=== PATIENT | female | born 1955 | race Caucasian/White ===

== ENCOUNTER 2019-03-02 07:20 | Observation (INO) ==
[2019-03-02] MEDS ORDERED: 0.9 % Sodium Chloride 500 ML IVC ONE (08:02)
[2019-03-02] MEDS ORDERED: GI Cocktail 40 ML EACH PO ONE (08:02)
--- NOTE | 2019-03-02 08:06 | Emergency Department Note ---
Disposition Clinical Impression: Elevated troponin Chest pain Qualifiers: Chest pain type: unspecified Qualified Code(s): R07.9 - Chest pain, unspecified Disposition: Admitted As Inpatient Condition: Fair Time of Disposition: 09:16 Chest Pain HPI - General Chief Complaint: ED Chest Pain Stated Complaint: CP/TANMAY Time Seen by Provider: 03/02/19 07:39 Source: patient Limitations: no limitations Vital Signs Reviewed: Yes Nursing Notes Reviewed: Yes - History of Present Illness HPI Narrative: Patient is a 63-year-old female past medical history of hypertension, hyperlipidemia, GERD, diabetes presenting for a one-day history of left sided chest pain with radiation into the upper left extremity associated with numbness and paresthesias. Patient states she woke approximately 4:30 this morning with 9 out of 10 stabbing pain in her left chest. Patient states that she has had several recent life stressors which she feels are exacerbating her symptoms. Patient also states she felt initially as though this pain was related to her gastroesophageal reflux disease and that she took her GERD medications believing that this would dannie the symptoms. Patient states her symptoms were not resolved with the administration of her medications and that she took her relented this morning approximately 5:30 believing that this would be cardiac prophylactic in nature. Patient states in addition to the chest pain that she also is experiencing shortness of breath, patient has no other concerns or complaints at this time. Pt complaint: chest pain Onset (ago): hour(s) Duration: constant Onset: awoke with symptoms Severity scale (1-10): 9 Quality: sharp Pain Radiation: LUE Improves with: nothing Worsens with: nothing Context: other (Significant recently stressors) Associated symptoms: Reports: dyspnea Treatments prior to arrival chest pain: other (Brillenta) - Related Data Home Medications Medication Instructions Recorded Confirmed CloNIDine HCl [Kapvay] 0.1 mg PO BID 09/22/16 09/30/16 Hydralazine HCl 100 mg PO BID 09/22/16 09/30/16 Insulin Glargine [Lantus] 20 unit SQ HS 09/22/16 09/30/16 LORazepam [Ativan] 0.5 mg PO QID PRN 09/22/16 09/30/16 Levothyroxine [Synthroid] 50 mcg PO DAILY 09/22/16 09/30/16 Metoclopramide [Reglan] 10 mg PO QID PRN 09/22/16 09/30/16 Omeprazole [PriLOSEC] 20 mg PO DAILY 09/22/16 09/30/16 Pediatric Multivit Comb No.136 1 tab PO DAILY 09/22/16 09/30/16 [Children Multivitamin] SUMAtriptan succinate [Imitrex] 25 mg PO Q2H PRN 09/22/16 09/30/16 amLODIPine [Norvasc] 5 mg PO DAILY 09/22/16 09/30/16 glipiZIDE [Glucotrol] 10 mg PO DAILY 09/22/16 09/30/16 Previous Rx's Medication Instructions Recorded Simvastatin [Zocor] 20 mg PO DAILY tablet 09/23/16 SitaGLIPtin [Januvia] 25 mg PO DAILY #30 tablet 09/23/16 Sodium Bicarbonate 650 mg PO TID #90 tablet 09/23/16 Allergies Allergy/AdvReac Type Severity Reaction Status Date / Time iron Allergy Anaphylaxis Verified 03/02/19 07:26 Penicillins Allergy Anaphylaxis Verified 03/02/19 07:26 metronidazole [From Flagyl] AdvReac Nausea Verified 03/02/19 07:26 Pain Pill AdvReac Nausea Uncoded 03/02/19 07:26 Review of Systems: See history of present illness for greater detail Constitutional: Denies: fever, chills Cardiovascular: Admits chest pain Respiratory: Admits dyspnea, denies: cough, hemoptysis Gastrointestinal: Denies: abdominal pain, nausea, vomiting, diarrhea, constipation, hematemesis, melena, hematochezia Genitourinary: Denies: hematuria Musculoskeletal: Denies: back pain, neck pain Integumentary: Denies: rash Neurological: Denies: headache, weakness, lightheadedness/dizziness, numbness, paresthesias, difficulty with ambulation. Endocrine: Denies: fatigue Psychiatric: Admits to anxiety All systems ED: reviewed and negative except as stated. 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 No acute distress, [id number], engaged to conversation, speech is fluid, answers questions appropriately Neuro: GCS 15, no overt focal neurological deficits Head: Atraumatic, normocephalic Eyes: Pupils equal, round and reactive to light, no scleral icterus, no conjunctival injection Neck: Trachea midline without deviation. Anterior neck is supple without swelling. *Chest: Symmetric chest wall rise, pain is reproducible upon palpation of the sternum and epigastric region. *Heart: Cardiac rhythm and rate are regular with S1 and S2 , no S3 or S4 appreciated, no murmurs, gallops, rubs, or clicks. *Lungs: Lungs are clear to auscultation bilaterally, without accessory muscle use or prolonged expiratory phase. No wheezes, rhonchi or stridor appreciated. Abdomen: Abdomen is flat, soft to palpation, normal bowel sounds. No abdominal bruit auscultated. Non-distended, non-rigid, no organomegaly, no ascites appreciated. No pulsatile mass, no tenderness or guarding to palpation in all four quadrants, no rebound Extremities: Normal capillary refill without evidence of pedal edema, joint swelling or erythema. Pulses/motor/sensory intact in all 4 extremities. Psychiatric exam: Patient displays a normal affect and mood for the environment. No overt signs of hallucination. Integumentary: warm, dry, intact, normal color. No rash, cyanosis, diaphoresis, erythema, or pallor - General Limitations: no limitations General appearance: alert, in no apparent distress Course Course Narrative: Concern for ACS versus GI GI cocktail Aspirin 324 mg Nitroglycerin CBC, BMP, EKG/old EKG, troponin, chest x-ray Vital Signs Temperature 97.5 F L 03/02/19 07:26 Pulse Rate 82 03/02/19 07:26 Respiratory Rate 16 03/02/19 07:26 Blood Pressure 220/101 03/02/19 07:26 O2 Sat by Pulse Oximetry 100 03/02/19 07:26 Temperature 97.5 F L 03/02/19 10:07 Pulse Rate 59 03/02/19 10:07 Respiratory Rate 15 03/02/19 10:07 Blood Pressure 158/73 03/02/19 10:07 O2 Sat by Pulse Oximetry 99 03/02/19 10:07 Oxygen Delivery Oxygen Delivery Room Air Chest Pain - MDM Narrative Medical decision making narrative: Heart score is 4 Troponin elevated 0.05 Patient continues to have pain which she states is 5 out of 10 after administration of GI cocktail We will give nitroglycerin at this time and repeat EKG No changes noted on EKG patient states that nitroglycerin completely relieved her symptoms. Repeat troponin placed for 10:30 AM Patient be admitted to hospitalist medicine service for further evaluation and management of chest pain Patient understands and verbalizes agreement with this plan. Dr. Mcfarlane accepts admission. - Lab Data Lab results reviewed: Yes I reviewed the patient's lab results. Result diagrams: 03/02/19 07:27 03/02/19 07:27 Lab Results 03/02/19 03/02/19 Range/Units 07:27 07:27 WBC 7.2 (4.3-11.1) K/mcL RBC 4.20 (3.82-4.97) M/mcL Hgb 9.9 L (11.5-15.4) g/dL Hct 34.8 L (35.3-44.9) % MCV 82.9 L (83.0-100.0) fL MCH 23.6 L (28.0-33.3) pg MCHC 28.4 L (31.6-35.5) g/dL RDW 16.9 H (11.5-14.5) % Plt Count 315 (140-400) K/mcL MPV 9.6 (9.4-12.4) fL Immature Gran % 0.6 (0-4) % Seg Neutrophils % 66.1 % Lymphocytes % 22.1 % Monocytes % 7.4 % Eosinophils % 3.2 % Basophils % 0.6 % Neutrophils # 4.8 (1.6-8.9) K/mcL Lymphocytes # 1.6 (0.6-4.6) K/mcL Monocytes # 0.5 (0.0-1.3) K/mcL Eosinophils # 0.2 (0.0-0.6) K/mcL Basophils # 0.0 (0.0-0.2) K/mcL Platelet Estimate Normal (Normal) Hypochromasia Present A (Not Present) Sodium 134 L (136-145) mEq/L Potassium 4.1 (3.5-5.1) mEq/L Chloride 102 (98-107) mEq/L Carbon Dioxide 18 L (23-29) mEq/L BUN 41 H (8-23) mg/dL Creatinine 2.01 H (0.60-1.20) mg/dL Est GFR ( Amer) 30 L (> 60) Est GFR (Non-Af Amer) 25 L (> 60) BUN/Creatinine Ratio 20 (6-26) Glucose 288 H (70-105) mg/dL Calculated Osmolality 299 (280-300) Calcium 9.2 (8.6-10.3) mg/dL Troponin I 0.05 H* (< 0.04) ng/mL - EKG Data EKG attestation: Yes I reviewed and interpreted this EKG. EKG results narrative: 1. Patient EKG shows a sinus rhythm at a rate of 61 bpm, IL interval of 178 ms, QRS duration of 90 ms, QT/QTc interval 438/442 ms respectively. There are no significant ST segment elevations, depressions, pathologic Q waves, or any signs of acute ischemic change. EKG performed today is generally consistent with prior EKG performed on 10/03/2016. 2. Patient continues to have chest pain after management in ED with GI cocktail and aspirin. Repeat EKG shows a sinus rhythm with a heart of 71 bpm, IL interval of 186 ms, QR sabianist of 96 ms, QT/QTc interval of 428/466 ms respectively. There are still no ST segment elevations, depressions, pathologic Q waves, or any other signs of acute ischemic change. EKG remains consistent with prior evaluations. 3. Concern for triplets of PVCs on patient telemetry, concern for sinus pause. Repeat EKG shows a sinus rhythm with a heart of 58 bpm, there are no acute changes to IL, QRS, or QT intervals. No signs of acute ischemic change. There is a noted PAC on the rhythm strip with a rebound upon his of less than 1 second. No true sinus positive sinus rest noted. EKG remains consistent with priors. Heart Score - Score History: Slightly Suspicious EKG: Normal Age: 45-65 Risk Factors: Equal/Greater than 3 risk factor or history of atherosclerotic disease Troponin: 1-3x normal limit HEART Score Total: 4
[2019-03-02 08:07] LABS: Basophils % 0.6 %; Eosinophils # 0.2 K/mcL (0.0-0.6); Eosinophils % 3.2 %; Hematocrit 34.8 % (35.3-44.9); Hemoglobin 9.9 g/dL (11.5-15.4); Immature Granulocytes % 0.6 % (0-4); Lymphocytes # 1.6 K/mcL (0.6-4.6); Lymphocytes % 22.1 %; Mean Corpuscular HGB Conc 28.4 g/dL (31.6-35.5); Mean Corpuscular Hemoglobin 23.6 pg (28.0-33.3); Mean Corpuscular Volume 82.9 fL (83.0-100.0); Mean Platelet Volume 9.6 fL (9.4-12.4); Monocytes # 0.5 K/mcL (0.0-1.3); Monocytes % 7.4 %; Platelet Count 315 K/mcL (140-400); Red Cell Distribution Width 16.9 % (11.5-14.5); Segmented Neutrophils % 66.1 %
[2019-03-02 08:08] LABS: Neutrophils # 4.8 K/mcL (1.6-8.9)
[2019-03-02 08:09] LABS: Calcium 9.2 mg/dL (8.6-10.3); Potassium 4.1 mEq/L (3.5-5.1)
[2019-03-02] MEDS ORDERED: Aspirin 81 MG TAB.CHEW PO ONE (08:10)
[2019-03-02 08:22] LABS: Hypochromasia Present (Not Present); Platelet Estimate Normal (Normal)
[2019-03-02 08:27] LABS: Troponin I 0.05 ng/mL (< 0.04)
[2019-03-02] MEDS ORDERED: Aspirin 81 MG TAB.CHEW PO SCH (09:00)
[2019-03-02] MEDS ORDERED: Nitroglycerin 0.4 MG TAB.SUBL SL SCH (09:15)
--- NOTE | 2019-03-02 09:28 | Emergency Department Note ---
Disposition Clinical Impression: Elevated troponin Chest pain Qualifiers: Chest pain type: unspecified Qualified Code(s): R07.9 - Chest pain, unspecified Disposition: Admitted As Inpatient Condition: Fair Time of Disposition: 09:00 General Adult HPI - General Chief complaint: ED Chest Pain Stated complaint: CP/TANMAY Time Seen by Provider: 03/02/19 07:39 Source: patient Limitations: no limitations - History of Present Illness Pain Scale: 9 - Related Data Home Medications Medication Instructions Recorded Confirmed CloNIDine HCl [Kapvay] 0.1 mg PO BID 09/22/16 09/30/16 Hydralazine HCl 100 mg PO BID 09/22/16 09/30/16 Insulin Glargine [Lantus] 20 unit SQ HS 09/22/16 09/30/16 LORazepam [Ativan] 0.5 mg PO QID PRN 09/22/16 09/30/16 Levothyroxine [Synthroid] 50 mcg PO DAILY 09/22/16 09/30/16 Metoclopramide [Reglan] 10 mg PO QID PRN 09/22/16 09/30/16 Omeprazole [PriLOSEC] 20 mg PO DAILY 09/22/16 09/30/16 Pediatric Multivit Comb No.136 1 tab PO DAILY 09/22/16 09/30/16 [Children Multivitamin] SUMAtriptan succinate [Imitrex] 25 mg PO Q2H PRN 09/22/16 09/30/16 amLODIPine [Norvasc] 5 mg PO DAILY 09/22/16 09/30/16 glipiZIDE [Glucotrol] 10 mg PO DAILY 09/22/16 09/30/16 Previous Rx's Medication Instructions Recorded Simvastatin [Zocor] 20 mg PO DAILY tablet 09/23/16 SitaGLIPtin [Januvia] 25 mg PO DAILY #30 tablet 09/23/16 Sodium Bicarbonate 650 mg PO TID #90 tablet 09/23/16 Allergies Allergy/AdvReac Type Severity Reaction Status Date / Time iron Allergy Anaphylaxis Verified 03/02/19 07:26 Penicillins Allergy Anaphylaxis Verified 03/02/19 07:26 metronidazole [From Flagyl] AdvReac Nausea Verified 03/02/19 07:26 Pain Pill AdvReac Nausea Uncoded 03/02/19 07:26 Past Medical History - Past Medical History Medical history: Reports: diabetes, GERD, hyperlipidemia, hypertension, renal disease, thyroid disease Surgical history: Reports: appendectomy, cholecystectomy, other Psychiatric history: Reports: anxiety 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 - Social History Smoking Status: Former smoker Smokeless Tobacco Status: No Alcohol use: Reports: none Drug use: Reports: none Physical Exam - General Limitations: no limitations General appearance: alert, in no apparent distress Course Vital Signs Temperature 97.5 F L 03/02/19 07:26 Pulse Rate 82 03/02/19 07:26 Respiratory Rate 16 03/02/19 07:26 Blood Pressure 220/101 03/02/19 07:26 O2 Sat by Pulse Oximetry 100 03/02/19 07:26 Temperature 97.5 F L 03/02/19 07:26 Pulse Rate 51 03/02/19 08:54 Respiratory Rate 18 03/02/19 08:54 Blood Pressure 193/91 03/02/19 08:54 O2 Sat by Pulse Oximetry 100 03/02/19 08:54 Oxygen Delivery Oxygen Delivery Room Air Medical Decision Making - Lab Data Result diagrams: 03/02/19 07:27 03/02/19 07:27 Lab Results 03/02/19 03/02/19 Range/Units 07:27 07:27 WBC 7.2 (4.3-11.1) K/mcL RBC 4.20 (3.82-4.97) M/mcL Hgb 9.9 L (11.5-15.4) g/dL Hct 34.8 L (35.3-44.9) % MCV 82.9 L (83.0-100.0) fL MCH 23.6 L (28.0-33.3) pg MCHC 28.4 L (31.6-35.5) g/dL RDW 16.9 H (11.5-14.5) % Plt Count 315 (140-400) K/mcL MPV 9.6 (9.4-12.4) fL Immature Gran % 0.6 (0-4) % Seg Neutrophils % 66.1 % Lymphocytes % 22.1 % Monocytes % 7.4 % Eosinophils % 3.2 % Basophils % 0.6 % Neutrophils # 4.8 (1.6-8.9) K/mcL Lymphocytes # 1.6 (0.6-4.6) K/mcL Monocytes # 0.5 (0.0-1.3) K/mcL Eosinophils # 0.2 (0.0-0.6) K/mcL Basophils # 0.0 (0.0-0.2) K/mcL Platelet Estimate Normal (Normal) Hypochromasia Present A (Not Present) Sodium 134 L (136-145) mEq/L Potassium 4.1 (3.5-5.1) mEq/L Chloride 102 (98-107) mEq/L Carbon Dioxide 18 L (23-29) mEq/L BUN 41 H (8-23) mg/dL Creatinine 2.01 H (0.60-1.20) mg/dL Est GFR ( Amer) 30 L (> 60) Est GFR (Non-Af Amer) 25 L (> 60) BUN/Creatinine Ratio 20 (6-26) Glucose 288 H (70-105) mg/dL Calculated Osmolality 299 (280-300) Calcium 9.2 (8.6-10.3) mg/dL Troponin I 0.05 H* (< 0.04) ng/mL Attestation Statement - Attestation Attestation: I examined this patient and my medical decision-making was reviewed with the Resident Physician. I agree with the documented findings, disposition and treatment plan as described except to the extent set forth below. HEART H0 E0 A2 R2 T1 = 5. Aspirin administered. Pain got significantly better after administration of GI cocktail. Presentation seems most consistent with a GI source, but given her age, risk factors and mildly elevated troponin, cardiac evaluation is obviously warranted. Accepted by the hospitalist for admission. I was present for the resident's EKG interpretation.
[2019-03-02] MEDS ORDERED: Nitroglycerin 0.4 MG TAB.SUBL SL ONE (09:30)
[2019-03-02] MEDS ORDERED: Ondansetron 4 MG/2 ML VIAL IVP PRN (10:03)
[2019-03-02] MEDS ORDERED: Naloxone 0.4 MG/ML INJ IVP PRN (10:03)
[2019-03-02] MEDS ORDERED: Acetaminophen 325 MG TABLET PO PRN (10:03)
--- NOTE | 2019-03-02 10:09 | Internal Med History&Physical ---
<Rick Latham - Last Filed: 03/02/19 11:20> Date of Encounter: 03/02/19 Time of Encounter: 10:02 Internal Medicine - H&P: HPI Chief complaint: Chest pain Admitted From: Emergency Dept Plans for Post Hospital Care: Home History of present illness: Ms. Echavarria is a 63 year old female with a past medical history of hypertension, hyperlipidemia, diabetes mellitus type 2, hypothyroidism, GERD, and obesity who presented to the ED complaining of left-sided chest pain radiating to her left upper extremity that awoke her from sleep at 4:30 this morning. Pain severity is 9 out of 10, sharp, stabbing, and nothing makes it better/worse. Pain improved with nitroglycerin the ED. Patient reports associated increased stress at home. Patient reports her current symptoms are different than her typical GERD related symptoms. In the ED, EKG revealed normal sinus rhythm, normal axis, no ST segment elevations or depressions. Initial troponin was 0.05, repeat troponin 0.25. Patient was started on heparin drip, made NPO, and cardiology has been consulted. Past Med Surg Social Fam HX - Past Medical History Medical history: diabetes, GERD, hyperlipidemia, hypertension, renal disease, thyroid disease Psychiatric history: anxiety - Past Surgical History Surgical History: appendectomy, cholecystectomy, other Additional surgical history: tonsillectomy - Social History Smoking Status: Former smoker Smokeless Tobacco Status: No Alcohol use: none Drug use: none - Family History Father Living Status: Hx Family Cancer: Yes Mother Living Status: Hx Family Endocrine Disorder: Yes (diabetes) Internal Medicine - H&P: Meds Levothyroxine [Synthroid] 50 mcg PO QAM 09/22/16 [History] Omeprazole [PriLOSEC] 20 mg PO DAILY 09/22/16 [History] Pediatric Multivit Comb No.136 [Children Multivitamin] 1 tab PO DAILY 09/22/16 [History] Calcium Carbonate [Calcium] 500 mg PO DAILY 03/02/19 [History] Cholecalciferol (D-3) [Vitamin D] 1,000 unit PO DAILY 03/02/19 [History] Cider Vinegar [Apple Cider Vinegar] 600 mg PO DAILY 03/02/19 [History] Furosemide [Lasix] 40 mg PO DAILY 03/02/19 [History] Glimepiride [Amaryl] 4 mg PO BID 03/02/19 [History] Insulin Glargine,Hum.rec.anlog [Lantus Solostar] 44 unit SQ HS 03/02/19 [History] Insulin Regular, Human [Novolin R] 20 unit SQ TIDAC 03/02/19 [History] Simvastatin [Zocor] 20 mg PO DAILY 03/02/19 [History] hydroCHLOROthiazide [Hydrochlorothiazide] 25 mg PO DAILY 03/02/19 [History] 3 Allergy/AdvReac Type Severity Reaction Status Date / Time iron Allergy Anaphylaxis Verified 03/02/19 19:42 Penicillins Allergy Anaphylaxis Verified 03/02/19 19:42 metronidazole [From Flagyl] AdvReac Nausea Verified 03/02/19 19:42 Pain Pill AdvReac Nausea Uncoded 03/02/19 07:26 All Systems PM: A 10-system review of systems was performed and is negative for pertinent findings except as documented above in the HPI. - Constitutional Constitutional: no chills, no fatigue, no fever(s), no weight gain, no weight loss - EENT Eyes: no blurry vision, no diplopia Nose, mouth and throat: no sinus pain, no sore throat - Cardiovascular Cardiovascular ROS IM: chest pain, dyspnea, no edema, no palpitations - Respiratory Respiratory: dyspnea, no wheezing - Gastrointestinal Gastrointestinal: heartburn, no abdominal pain, no diarrhea, no nausea, no vomiting - Genitourinary Genitourinary: no urinary frequency, no urinary urgency - Musculoskeletal Musculoskeletal ROS IM: back pain, myalgias - Integumentary Integumentary IM: no erythema, no rash - Neurological Neurological ROS: no dizziness, no weakness - Psychiatric Psychiatric: anxiety, no depression - Endocrine Endocrine IM: no polydipsia, no polyphagia, no polyuria - Constitutional Vitals: Temp Pulse Resp BP Pulse Ox 97.5 F L 66 18 114/64 97 03/02/19 07:26 03/02/19 09:36 03/02/19 09:36 03/02/19 09:36 03/02/19 09:36 General appearance: Present: cooperative, mild distress, A&O X 3, pleasant, answers questions appropriately Exam: awake - Head Head exam: Present: atraumatic, normocephalic - Eye Eye exam: Present: EOMI, conjuntiva pink, sclera anicteric - ENT ENT exam: Present: mucous membranes dry, normal oropharynx - Neck Neck exam general surgery: Present: supple, trachea midline. Absent: lymphadenopathy - Respiratory Respiratory exam: Present: CTAB. Absent: accessory muscle use, rales, rhonchi, wheezes - Cardiovascular Cardiovascular exam: Present: RRR, +S1, +S2. Absent: diastolic murmur, gallop, rubs, systolic murmur - GI/Abdominal GI/Abdominal exam: Present: normal bowel sounds, soft, no peritoneal signs. Absent: distended, tenderness - Extremities Exam Extremities exam: Present: warm, radial pulses palpable and symmetrical. Absent: calf tenderness, cyanotic, pedal edema - Back Exam Back exam: Present: normal inspection. Absent: paraspinal tenderness, te nderness - Neurological Exam Neurological exam: Present: alert, CN II-XII intact, oriented X3, no focal deficits. Absent: facial droop, speech deficit - Psychiatric Psychiatric exam: Present: normal affect, normal mood - Skin Skin exam: Present: dry, intact, normal color, warm Internal Med - H&P Results - Labs CBC & Chem 7: 03/02/19 07:27 03/02/19 07:27 Labs: Short CBC 03/02/19 Range/Units 07:27 WBC 7.2 (4.3-11.1) K/mcL Hgb 9.9 L (11.5-15.4) g/dL Hct 34.8 L (35.3-44.9) % Plt Count 315 (140-400) K/mcL Neutrophils # 4.8 (1.6-8.9) K/mcL BMP 03/02/19 07:27 Sodium 134 L Potassium 4.1 Chloride 102 Carbon Dioxide 18 L BUN 41 H Creatinine 2.01 H Glucose 288 H Calcium 9.2 Cardiac Enzymes 03/02/19 Range/Units 07:27 Troponin I 0.05 H* (< 0.04) ng/mL - Pulse Oximetry Interpretation Digit-Finger O2 Sat by Pulse Oximetry: 99 (On ambient air) - EKG Data -: EKG Interpreted by Myself EKG shows normal: sinus rhythm, axis, intervals, ST-T waves Rate: normal - Impressions ITS Impressions Chest X-Ray 03/02/19 07:39 IMPRESSION: Normal chest x-ray D/ / Tyson Casper MD / Tyson Casper MD Interpreting Provider: Tyson Casper MD - Assessment and Plan (1) Chest pain Current Visit: Yes Status: Acute Assessment and plan: 63-year-old female with diabetes, HTN, and remote tobacco dependence since complained of sharp stabbing chest pain awoke her from sleep. Chest pain improved with nitroglycerin. EKG revealed normal sinus rhythm, normal axis, no ST segment elevations or depressions. Initial troponin was 0.05, repeat troponin 0.25. Trend serial troponin Patient was started on a heparin drip NPO, cardiology has been consulted. Qualifiers: Chest pain type: unspecified Qualified Code(s): R07.9 - Chest pain, unspecified (2) Elevated troponin Current Visit: Yes Status: Acute Assessment and plan: Initial troponin was 0.05, repeat troponin 0.25. Trend troponins Cardiology has been consulted. (3) Hypertensive urgency Current Visit: Yes Status: Acute Assessment and plan: Patient presented with blood pressure 220/101 --> 114/64 after sublingual nitroglycerin. Continue monitoring. Resume home meds. (4) Hypertension Current Visit: Yes Status: Chronic Assessment and plan: Blood pressure elevated Resume home meds. Qualifiers: Hypertension type: essential hypertension Qualified Code(s): I10 - Essential (primary) hypertension (5) Chronic kidney disease (CKD), stage IV (severe) Current Visit: Yes Status: Chronic Assessment and plan: Renal function at baseline. Continue monitoring. (6) Anemia Current Visit: Yes Status: Chronic Assessment and plan: Hemoglobin 9.9, baseline level around 9 No signs of bleeding. Continue monitoring. Qualifiers: Anemia type: due to chronic kidney disease Chronic kidney disease stage: stage 4 (severe) Qualified Code(s): N18.4 - Chronic kidney disease, stage 4 (severe); D63.1 - Anemia in chronic kidney disease (7) Hypomagnesemia Current Visit: Yes Status: Acute Assessment and plan: Magnesium 1.3 Supplement magnesium Continue monitoring. (8) Type 2 diabetes mellitus Current Visit: No Status: Chronic Assessment and plan: Hemoglobin A1c 10.4 on 02/02/19 NPO, continue Accu-Cheks and low dose SSI every 6 hours Qualifiers: Diabetes mellitus skilled nursing insulin use: with product development director use Diabetes mellitus complication status: with kidney complications Diabetes mellitus complication detail: with chronic kidney disease Chronic kidney disease stage: stage 3 (moderate) Qualified Code(s): E11.22 - Type 2 diabetes mellitus with diabetic chronic kidney disease; N18.3 - Chronic kidney disease, stage 3 ( moderate); Z79.4 - [facility] (current) use of insulin (9) Obesity (BMI 30-39.9) Current Visit: Yes Status: Chronic Assessment and plan: Lifestyle modification. (10) DVT prophylaxis Current Visit: Yes Status: Acute Assessment and plan: Heparin ggt - Time Spent With Patient Total time spent is greater than 50% in coordination of care (as documented) at patient's floor/unit and/or counseling patient: <Radha Kenny Z - Last Filed: 03/04/19 10:50> Date of Encounter: 03/02/19 Internal Medicine - H&P: HPI History of present illness: Ms. Echavarria is a 63 year old female All Systems PM: A 10-system review of systems was performed and is negative for pertinent findings except as documented above in the HPI. - Constitutional Vitals: Temp Pulse Resp BP Pulse Ox 98.5 F 64 16 156/76 99 03/03/19 07:20 03/03/19 07:20 03/03/19 07:20 03/03/19 07:20 03/03/19 07:20 Internal Med - H&P Results - Labs CBC & Chem 7: 03/04/19 02:24 03/04/19 02:24 Labs: Short CBC 03/02/19 03/03/19 Range/Units 13:16 02:16 WBC 6.8 6.0 (4.3-11.1) K/mcL Hgb 9.3 L 8.5 L (11.5-15.4) g/dL Hct 31.1 L 29.0 L (35.3-44.9) % Plt Count 271 251 (140-400) K/mcL BMP 03/03/19 02:16 Sodium 137 Potassium 3.9 Chloride 107 Carbon Dioxide 22 L BUN 40 H Creatinine 2.04 H Glucose 315 H Calcium 9.1 Cardiac Enzymes 03/02/19 03/02/1919 Range/Units 10:16 13:16 20:11 Troponin I 0.25 H* 0.76 H* 3.03 H* (< 0.04) ng/mL Liver Function 03/02/19 Range/Units 10:16 Total Bilirubin 0.3 (0.3-1.0) mg/dL Direct Bilirubin 0.1 (0.0-0.2) mg/dL AST 20 (13-39) Units/L ALT 13 (7-52) Units/L Alkaline Phosphatase 56 (34-104) Units/L Albumin 3.7 (3.5-5.7) g/dL - Impressions ITS Impressions Chest X-Ray 03/02/19 07:39 IMPRESSION: Normal chest x-ray D/ / Tyson Casper MD / Tyson Casper MD Interpreting Provider: Tyson Casper MD - Assessment and Plan (1) Type 2 diabetes mellitus Current Visit: No Status: Chronic Qualifiers: Diabetes mellitus product development director insulin use: with product development director use Diabetes mellitus complication status: with kidney complications Diabetes mellitus complication detail: with chronic kidney disease Chronic kidney disease stage: stage 3 (moderate) Qualified Code(s): E11.22 - Type 2 diabetes mellitus with diabetic chronic kidney disease; N18.3 - Chronic kidney disease, stage 3 (moderate); Z79.4 - [facility] (current) use of insulin (2) Hypertension Current Visit: Yes Status: Chronic Qualifiers: Hypertension type: essential hypertension Qualified Code(s): I10 - Essential (primary) hypertension (3) Anemia Current Visit: Yes Status: Chronic Qualifiers: Anemia type: due to chronic kidney disease Chronic kidney disease stage: stage 4 (severe) Qualified Code(s): N18.4 - Chronic kidney disease, stage 4 (severe); D63.1 - Anemia in chronic kidney disease (4) Chest pain Current Visit: Yes Status: Acute Qualifiers: Chest pain type: unspecified Qualified Code(s): R07.9 - Chest pain, unspecified (5) Elevated troponin Current Visit: Yes Status: Resolved (6) Chronic kidney disease (CKD), stage IV (severe) Current Visit: Yes Status: Chronic (7) DVT prophylaxis Current Visit: Yes Status: Acute (8) Hypertensive urgency Current Visit: Yes Status: Acute (9) Hypomagnesemia Current Visit: Yes Status: Acute (10) Obesity (BMI 30-39.9) Current Visit: Yes Status: Chronic - Time Spent With Patient Total time spent is greater than 50% in coordination of care (as documented) at patient's floor/unit and/or counseling patient: - Attending Attestation I personally and independently interviewed and examined the patient, and I reviewed the patient's medical records. I am in agreement with the assessment and proposed treatment plan. I discussed my findings and recommendation with the patient and answer his questions. The patient's medical records were edited to accurately reflect this encounter.
[2019-03-02] MEDS ORDERED: *HR* Dextrose 50 % in Water (Syg) 50 ML SYRINGE IVP PRN (10:10)
[2019-03-02] MEDS ORDERED: Dextrose Gel 15 GM/37.5 ML TUBE PO PRN ×2 (10:10)
[2019-03-02] MEDS ORDERED: D5% in Water 1,000 ML IVC PRN (10:10)
[2019-03-02 10:58] LABS: Albumin 3.7 g/dL (3.5-5.7); Albumin/Globulin Ratio 1.2 (1.1-2.2); Bilirubin,Direct 0.1 mg/dL (0.0-0.2); Bilirubin,Indirect 0.2 mg/dL (0.0-1.2); Bilirubin,Total 0.3 mg/dL (0.3-1.0); Globulin 3.2 g/dL (2.4-3.5); Magnesium 1.3 mg/dL (1.6-2.6); Total Protein 6.9 g/dL (6.4-8.9); Troponin I 0.25 ng/mL (< 0.04)
[2019-03-02] MEDS ORDERED: *HR* Heparin 5,000 UNIT/ML VIAL IVP ONE (11:02)
[2019-03-02] MEDS ORDERED: *HR* Heparin 5,000 UNIT/ML VIAL IVP PRN ×2 (11:02)
[2019-03-02] MEDS ORDERED: Heparin 25,000 UNIT/250 ML D5W 25,000 UNIT/250 ML IV.SOLN IVC SCH (11:15)
[2019-03-02] MEDS: Nitroglycerin 0.4 MG TAB.SUBL SL PRN ×3 (12:50→15:38)
[2019-03-02 13:41] LABS: Hematocrit 31.1 % (35.3-44.9); Hemoglobin 9.3 g/dL (11.5-15.4); Mean Corpuscular HGB Conc 29.9 g/dL (31.6-35.5); Mean Corpuscular Volume 80.4 fL (83.0-100.0); Mean Platelet Volume 9.5 fL (9.4-12.4); Platelet Count 271 K/mcL (140-400); Red Blood Count 3.87 M/mcL (3.82-4.97); Red Cell Distribution Width 16.4 % (11.5-14.5)
[2019-03-02 13:48] LABS: Heparin anti-factor XA UFH 0.06 IU/mL (0.30-0.70); INR 1.1; Prothrombin Time 12.4 Seconds (9.4-12.1)
[2019-03-02] MEDS ORDERED: *HR* Heparin 5,000 UNIT/ML VIAL SQ SCH (14:00)
[2019-03-02] MEDS: Insulin LISPRO 300 UNITS/3 ML VIAL SQ SCH ×2 (15:28→18:31)
[2019-03-02] MEDS ORDERED: *HR* Morphine 2 MG/ML SYRINGE IVP PRN (15:41)
[2019-03-02] MEDS ORDERED: Nitroglycerin 25 MG/250 ML INFUS..BTL IVC SCH (16:15)
--- NOTE | 2019-03-02 16:29 | Cardiology Consult Note ---
<Domo Randall - Last Filed: 03/02/19 16:23> Date of Encounter: 03/02/19 Time of Encounter: 16:20 Assessment and Plan (1) Chest pain Current Visit: Yes Status: Acute Per Cardiology: Currently chest pain-free. Nitroglycerin drip being initiated. We will apply nasal cannula O2. ECG showed no signs of ischemia. We will cancel stress test due to troponin elevations. Check echo. Will make nothing by mouth after midnight to evaluate tomorrow morning. Risk factors include DM 2, HTN, positive family history. Qualifiers: Chest pain type: unspecified Qualified Code(s): R07.9 - Chest pain, unspecified (2) Elevated troponin Current Visit: Yes Status: Resolved Per Cardiology: Elevated troponins in the setting of ARON on CKD and hypertension. Initial troponin 0.05, 0.25 and then 0.76. On heparin drip. On aspirin and statin. Will start beta holden. Cardiac rehabilitation consult placed. (3) Hypertensive urgency Current Visit: Yes Status: Acute Per Cardiology: Systolic blood pressure in the 220s on arrival. IV nitroglycerin drip to be started. Adding beta holden. (4) Chronic kidney disease (CKD), stage IV (severe) Current Visit: Yes Status: Chronic Per Cardiology: We will follow creatinine. Discussion w patient/family: The assessment and plan as outlined above was discussed with the patient and/or family members who expressed understanding and agreement. All questions were answered. Thank you for involving us in the care of your patient. Please call with any questions. History of Present Illness Consult date: 03/02/19 Consult reason: CP History of present illness: Ms. Echavarria is a 63 year old female with a relevant past medical history of CK D, DM 2, hypertension, and GERD. Reports remote smoking as a teenager. Reports family history of mother dying from [place] at age 59. Patient's never had cardiac evaluation in the past. Cardiology consult for chest pain and troponin elevation. Seen with family at bedside. Reports progressive fatigue over the past few months. Also indicates increased dyspnea on exertion for the past few months. She reports to 3 different times with past 2-3 weeks episodes of exertional midsternal to left-sided chest pressure/burning. She indicates this morning developed indigestion-like symptoms with radiation to her left arm which prompted her to come to the hospital. She reports some relief with sublingual nitroglycerin pills. Currently chest pain-free. Denies any active bleeding or blood loss. Denies any palpitations, dizziness, syncope, falls. Denies any recent infectious process. Denies any pending surgeries. Past Med Surg Social Fam HX - Past Medical History Attestation: Yes The following information was validated with the patient. Source: patient, old records reviewed, obtained from family Medical history: diabetes, GERD, hyperlipidemia, hypertension, renal disease, thyroid disease Psychiatric history: anxiety - Past Surgical History Surgical History: appendectomy, cholecystectomy Additional surgical history: tonsillectomy - Social History Smoking Status: Former smoker Smokeless Tobacco Status: No Alcohol use: none Drug use: none - Family History Father Living Status: Hx Family Cardiac Disorders: Yes Hx Family Cancer: Yes Hx Family Endocrine Disorder: Yes (Diabetes) Hx Family Medical Disorders: (Cirrhosis) Mother Living Status: Hx Family Endocrine Disorder: Yes (Diabetes) Medications and Allergies CloNIDine HCl [Kapvay] 0.1 mg PO BID 09/22/16 [History] Hydralazine HCl 100 mg PO BID 09/22/16 [History] Insulin Glargine [Lantus] 20 unit SQ HS 09/22/16 [History] LORazepam [Ativan] 0.5 mg PO QID PRN 09/22/16 [History] Levothyroxine [Synthroid] 50 mcg PO DAILY 09/22/16 [History] Metoclopramide [Reglan] 10 mg PO QID PRN 09/22/16 [History] Omeprazole [PriLOSEC] 20 mg PO DAILY 09/22/16 [History] Pediatric Multivit Comb No.136 [Children Multivitamin] 1 tab PO DAILY 09/22/16 [History] SUMAtriptan succinate [Imitrex] 25 mg PO Q2H PRN 09/22/16 [History] amLODIPine [Norvasc] 5 mg PO DAILY 09/22/16 [History] glipiZIDE [Glucotrol] 10 mg PO DAILY 09/22/16 [History] Simvastatin [Zocor] 20 mg PO DAILY tablet 09/23/16 [Rx] SitaGLIPtin [Januvia] 25 mg PO DAILY #30 tablet 09/23/16 [Rx] Sodium Bicarbonate 650 mg PO TID #90 tablet 12/15/16 [Rx] Allergy/AdvReac Type Severity Reaction Status Date / Time iron Allergy Anaphylaxis Verified 03/02/19 07:26 Penicillins Allergy Anaphylaxis Verified 03/02/19 07:26 metronidazole [From Flagyl] AdvReac Nausea Verified 03/02/19 07:26 Pain Pill AdvReac Nausea Uncoded 03/02/19 07:26 All Systems Review: The remainder of the systems were reviewed and are negative - Constitutional Constitutional: fatigue - Cardiovascular Cardiovascular: as per HPI, chest pain at rest, chest pain with exertion, dyspnea on exertion Physical Examination Vital Signs, Last 4 Hours Temp Pulse Resp BP Pulse Ox 03/02/19 15:28 98.0 F 64 16 177/74 97 General: Conversant, No Apparent Distress HEENT: Atraumatic, Normocephaly, Mucus Membranes Moist Neck: No JVD, Normal carotid pulses Cardiac: Reg Rate and Rhythm, Normal S1 and S2, No Murmur Lungs: Normal Breath Sounds, No Wheeze, Rales, Rhonchi Neuro: Alert and responsive, No focal deficits noted Abdomen: Soft, Non-Tender Skin: No rashes noted on visualized skin Musculoskeletal: No Chest Wall Tenderness Extremities: No Clubbing, No Cyanosis, No Edema, Normal Pulses Results 03/02/19 13:16 03/02/19 07:27 Lab Results Laboratory Tests 12/29/14 09/30/16 02/09/17 17:21 12:52 09:46 INR Creatinine 4.03 H 1.48 H Est GFR (Non-Af Amer) 37 L 11 L 36 L Troponin I 02/09/19 03/02/19 03/02/19 11:23 07:27 10:16 INR Creatinine 2.06 H 2.01 H Est GFR (Non-Af Amer) 25 L Troponin I 0.05 H* 0.25 H* 03/02/19 03/02/19 13:16 13:16 INR 1.1 Creatinine Est GFR (Non-Af Amer) Troponin I 0.76 H* ITS Impressions Chest X-Ray 03/02/19 07:39 IMPRESSION: Normal chest x-ray D/ / Tyson Casper MD / Tyson Casper MD Interpreting Provider: Tyson Casper MD Active Medications Acetaminophen (Tylenol) 650 mg PO Q6HR PRN PRN Reason: Mild Pain/Fever Stop: 09/01/19 10:04 Aspirin (Aspirin) 81 mg PO DAILY GINETTE Stop: 09/02/19 09:01 Dextrose/Water (Dextrose 50% (Syg)) 25 ml IVP AD PRN PRN Reason: Hypoglycemia Stop: 09/01/19 10:11 Docusate Sodium (Colace) 100 mg PO BID PRN PRN Reason: Constipation Stop: 09/01/19 21:01 Glucagon (Glucagen) 1 mg IM ONCE PRN PRN Reason: Hypoglycemia Stop: 09/01/19 10:11 Glucose (Gluctose) 15 gm PO ONCE PRN PRN Reason: Hypoglycemia Stop: 09/01/19 10:11 Glucose (Gluctose) 30 gm PO ONCE PRN PRN Reason: Hypoglycemia Stop: 09/01/19 10:11 Heparin Sodium (Porcine) (Heparin) 4,000 unit IVP Q6HR PRN PRN Reason: SEE COMMENTS Stop: 09/01/19 11:03 Heparin Sodium (Porcine) (Heparin) 2,000 unit IVP Q6H PRN PRN Reason: SEE COMMENTS Stop: 09/01/19 11:03 Dextrose (Dextrose 5%) 1,000 mls @ 100 mls/hr IVC .Q10H PRN PRN Reason: HYPOGLYCEMIA Stop: 09/01/19 10:11 Heparin Sodium/Dextrose (Heparin 25,000 Unit/250 Ml D5w) 25,000 unit in 250 mls @ 9.974 mls/hr IVC .Q24H GINETTE; Protocol Stop: 09/01/19 11:16 Last Admin: 03/02/19 14:26 Dose: 11.5 unit/kg/hr, 10 mls/hr Documented by: Nitroglycerin (Nitroglycerin Premix 25 Mg/250 Ml) 25 mg in 250 mls @ 3 mls/hr IVC .Q24H GINETTE; Protocol Stop: 09/01/19 16:16 Insulin Human Lispro (Humalog) 0 units SQ HS GINETTE; Protocol Stop: 09/01/19 21:01 Insulin Human Lispro (Humalog) 0 units SQ TIDAC GINETTE; Protocol Stop: 09/01/19 11:31 Last Admin: 03/02/19 15:28 Dose: Not Given Documented by: Morphine Sulfate (Morphine Sulfate) 2 mg IVP Q2H PRN; Protocol PRN Reason: Chest Pain Stop: 09/01/19 15:42 Naloxone HCl (Narcan) 0.4 mg IVP Q2MPRN PRN PRN Reason: SEE COMMENTS Stop: 09/01/19 10:04 Omeprazole (Prilosec) 40 mg PO BIDAC GINETTE; Protocol Stop: 09/01/19 16:31 Ondansetron HCl (Zofran) 4 mg IVP Q8HR PRN PRN Reason: Nausea And Vomiting Stop: 09/01/19 10:04 Simvastatin (Zocor) 20 mg PO HS GINETTE; Protocol Stop: 09/01/19 21:01 Tramadol HCl (Ultram) 50 mg PO Q6HR PRN PRN Reason: Moderate Pain Stop: 09/01/19 10:04 - Imaging and Cardiology Echo: pending - EKG Interpretation EKG results cardiology: personally reviewed, normal ECG, sinus rhythm Consult Discharge Plan - Plan Instructions: Chest Pain (ED) Referrals: Jerardo Aguiar Jr, MD [Primary Care Provider] - <Kristen Patel - Last Filed: 03/02/19 17:07> Date of Encounter: 03/02/19 - Attending Attestation I examined this patient and my medical decision-making was reviewed with the CATTLE DIPPER. I agree with the documented findings, disposition and treatment plan as described. Ms. Echavarria presents with chest pain and elevated troponin - NSTEMI. Cardiac risk factors - female gender, uncontrolled HTN, CKD, HPL and uncontrolled DM. Remote history of smoking. Recommend heparin gtt, asa, statin, BB and NTG gtt. Will check echo and trend troponins. Would consider LHC once renal function returns to baseline. Consider Nephrology consultation. Assessment and Plan Discussion w patient/family: The assessment and plan as outlined above was discussed with the patient and/or family members who expressed understanding and agreement. All questions were answered. Thank you for involving us in the care of your patient. Please call with any questions. History of Present Illness History of present illness: Ms. Echavarria is a 63 year old female All Systems Review: The remainder of the systems were reviewed and are negative Physical Examination Vital Signs, Last 4 Hours Temp Pulse Resp BP Pulse Ox 03/02/19 15:28 98.0 F 64 16 177/74 97 Results 03/02/19 13:16 03/02/19 07:27 Lab Results 03/02/19 03/02/19 03/02/19 07:27 07:27 10:16 WBC 7.2 Hgb 9.9 L Hct 34.8 L Plt Count 315 INR Sodium 134 L Potassium 4.1 Chloride 102 Carbon Dioxide 18 L BUN 41 H Creatinine 2.01 H Glucose 288 H Calcium 9.2 Magnesium 1.3 L Total Bilirubin 0.3 AST 20 ALT 13 Alkaline Phosphatase 56 Troponin I 0.05 H* 0.25 H* 03/02/19 03/02/19 03/02/19 13:16 13:16 13:16 WBC 6.8 Hgb 9.3 L Hct 31.1 L Plt Count 271 INR 1.1 Sodium Potassium Chloride Carbon Dioxide BUN Creatinine Glucose Calcium Magnesium Total Bilirubin AST ALT Alkaline Phosphatase Troponin I 0.76 H*
--- NOTE | 2019-03-02 17:39 | Electrocardiograph Report ---
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
--- NOTE | 2019-03-02 17:46 | Electrocardiograph Report ---
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
--- NOTE | 2019-03-02 17:47 | Electrocardiograph Report ---
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
[2019-03-02] MEDS: traMADol 50 MG TABLET PO PRN (20:58)
[2019-03-02] MEDS ORDERED: Insulin LISPRO 300 UNITS/3 ML VIAL SQ SCH (21:00)
[2019-03-03 02:39] LABS: Hemoglobin 8.5 g/dL (11.5-15.4); Mean Corpuscular HGB Conc 29.3 g/dL (31.6-35.5); Mean Corpuscular Hemoglobin 23.3 pg (28.0-33.3); Mean Corpuscular Volume 79.5 fL (83.0-100.0); Mean Platelet Volume 9.2 fL (9.4-12.4); Platelet Count 251 K/mcL (140-400); Red Blood Count 3.65 M/mcL (3.82-4.97); Red Cell Distribution Width 16.3 % (11.5-14.5)
[2019-03-03 02:47] LABS: Heparin anti-factor XA UFH 0.35 IU/mL (0.30-0.70); INR 1.1; Prothrombin Time 12.7 Seconds (9.4-12.1)
[2019-03-03 02:58] LABS: Calcium 9.1 mg/dL (8.6-10.3); Potassium 3.9 mEq/L (3.5-5.1)
[2019-03-03] MEDS ORDERED: Insulin LISPRO 300 UNITS/3 ML VIAL SQ SCH (07:31)
[2019-03-03] MEDS: traMADol 50 MG TABLET PO PRN (08:41)
[2019-03-03] MEDS: Pantoprazole 40 MG VIAL IVP SCH (08:41)
[2019-03-03] MEDS: Aspirin 81 MG TAB.CHEW PO SCH (08:41)
[2019-03-03] MEDS ORDERED: Perflutren Lipid Microsphere 1.3 ML in 0.9 % Sodium Chloride 8.7 ML IVP ONE (09:30)
[2019-03-03] MEDS ORDERED: Perflutren Lipid Microsphere 2 ML VIAL ONE (09:34)
--- NOTE | 2019-03-03 09:41 | Event Note ---
Date of Encounter: 03/03/19 Time of Encounter: 08:30 - Cardiology Event Note Laboratory Tests 09/30/16 10/01/16 10/03/16 12:52 04:06 04:52 Hgb 8.5 L Hct 28.6 L INR Creatinine Est GFR (Non-Af Amer) 11 L Magnesium AST ALT Troponin I 03/02/19 03/02/19 03/02/19 07:27 07:27 10:16 Hgb 9.9 L Hct 34.8 L INR Creatinine Est GFR (Non-Af Amer) Magnesium AST 20 ALT 13 Troponin I 0.05 H* 0.25 H* 03/02/19 03/02/19 03/03/19 13:16 20:11 02:16 Hgb 8.5 L Hct 29.0 L INR Creatinine Est GFR (Non-Af Amer) Magnesium AST ALT Troponin I 0.76 H* 3.03 H* 03/03/19 03/03/19 02:16 02:16 Hgb Hct INR 1.1 Creatinine 2.04 H Est GFR (Non-Af Amer) 25 L Magnesium 2.0 AST ALT Troponin I Reports episodes of chest pain yesterday evening requiring nitroglycerin IV titration. Currently complaint of one to 2 at a 10 left-sided "discomfort". Echo pending. Reviewed and discussed with Dr. Uzma King, plan for cath eterization today.
[2019-03-03] MEDS ORDERED: *HR* Heparin 10,000 UNIT/10 ML VIAL ONE (10:13)
[2019-03-03] MEDS ORDERED: Heparin 1,000 UNITS/500 mL 500 ML ONE (10:13)
[2019-03-03] MEDS ORDERED: 0.9 % Sodium Chloride 1,000 ML ONE (10:13)
[2019-03-03] MEDS ORDERED: ISOVUE-370 200 ML INFUS..BTL ONE (10:13)
[2019-03-03] MEDS ORDERED: Nitroglycerin 1,000 MCG/10 ML VIAL IV ONE (10:13)
--- NOTE | 2019-03-03 10:52 | Internal Med Progress Note ---
Hospitalist Progress Note - Encounter Date of Encounter: 03/03/19 Time of Encounter: 10:52 - Subjective Interval History: Patient denied chest pain. Nitro drip and heparin drip in continuation. Review of the vitals and lab. Slight trending down hemoglobin but no active bleeding. Patient denies fever chills nausea vomiting headache dizziness chest pain shortness of breath abdominal pain diarrhea or urinary complaint - Exam Vitals: Temp Pulse Resp BP Pulse Ox 98.5 F 64 16 156/76 99 03/03/19 07:20 03/03/19 07:20 03/03/19 07:20 03/03/19 07:20 03/03/19 07:20 Exam: General appearance: No acute distress Eye exam: EOMI, PERRLA ENT exam: Moist oral mucosa Neck nontender, supple Respiratory exam: Clear to auscultation bilaterally Cardiovascular exam: Regular rate and rhythm, no systolic murmur Abdominal exam: Soft, nontender, nondistended, positive bowel sounds Extremities exam: No calf tenderness, no pedal edema Present: Skin-no rash, warm, dry, intact Neurological exam: Alert, awake, oriented 3, CN II-XII intact, no focal deficits. No facial droop. Normal speech. - Assessment and Plan (1) Chest pain Current Visit: Yes Status: Acute Assessment and Plan: 63-year-old female with diabetes, HTN, and remote tobacco dependence since complained of sharp stabbing chest pain awoke her from sleep. Chest pain improved with nitroglycerin. EKG revealed normal sinus rhythm, normal axis, no ST segment elevations or depressions. Initial troponin was 0.05, repeat troponin 0.25. Trend up serial troponin Heparin drip and nitro drip was restarted. Item Processor's on board and plan for heart catheterization today (2) Hypertensive urgency Current Visit: Yes Status: Acute Assessment and Plan: Patient presented with blood pressure 220/101 --> 114/64 after sublingual nitroglycerin. Continue monitoring-better controlled now. Resume home meds. (3) ARON (acute kidney injury) Current Visit: Yes Status: Acute Assessment and Plan: Acute on CK D. Baseline creatinine 1.48 on February 09. Consulted story reader especially in the setting of dye exposure for heart catheterization. Gentle hydration strict I&O's. Avoid nephrotoxic drug. (4) Type 2 diabetes mellitus Current Visit: No Status: Chronic Assessment and Plan: Hemoglobin A1c 10.4 on 02/02/19 NPO, continue Accu-Cheks and low dose SSI every 6 hours (5) Hypertension Current Visit: Yes Status: Chronic Assessment and Plan: Continue blood pressure monitoring Resume home meds. (6) Anemia Current Visit: Yes Status: Chronic Assessment and Plan: Hemoglobin 9.9, baseline level around 9. Slight trending down hemoglobin while on heparin drip. Made aware cardiology team. No signs of bleeding. Continue monitoring. (7) Elevated troponin Current Visit: Yes Status: Resolved Assessment and Plan: Trending up troponin. It could be in the setting of AK on CK D and hypertension. As mentioned above Cardiology on board (8) Chronic kidney disease (CKD), stage IV (severe) Current Visit: Yes Status: Chronic Assessment and Plan: Avoid nephrotoxic drug. (9) Hypomagnesemia Current Visit: Yes Status: Acute Assessment and Plan: Magnesium 2.0. Supplement magnesium Continue monitoring. (10) Obesity (BMI 30-39.9) Current Visit: Yes Status: Chronic Assessment and Plan: Lifestyle modification. (11) DVT prophylaxis Current Visit: Yes Status: Acute Assessment and Plan: Heparin ggt - Time Spent with Patient Total time spent is greater than 50% in coordination of care (as documented) at patient's floor/unit and/or counseling patient: 25 - 35 minutes Plan of Care Discussed with: patient Internal Medicine: Result - Labs CBC & Chem 7: 03/03/19 02:16 03/03/19 02:16 Labs: Short CBC 03/02/19 03/03/19 Range/Units 13:16 02:16 WBC 6.8 6.0 (4.3-11.1) K/mcL Hgb 9.3 L 8.5 L (11.5-15.4) g/dL Hct 31.1 L 29.0 L (35.3-44.9) % Plt Count 271 251 (140-400) K/mcL BMP 03/03/19 02:16 Sodium 137 Potassium 3.9 Chloride 107 Carbon Dioxide 22 L BUN 40 H Creatinine 2.04 H Glucose 315 H Calcium 9.1 Cardiac Enzymes 03/02/19 03/02/19 03/02/19 Range/Units 10:16 13:16 20:11 Troponin I 0.25 H* 0.76 H* 3.03 H* (< 0.04) ng/mL Liver Function 03/02/19 Range/Units 10:16 Total Bilirubin 0.3 (0.3-1.0) mg/dL Direct Bilirubin 0.1 (0.0-0.2) mg/dL AST 20 (13-39) Units/L ALT 13 (7-52) Units/L Alkaline Phosphatase 56 (34-104) Units/L Albumin 3.7 (3.5-5.7) g/dL - ABG Interpretation ABG results: PT/INR, D-dimer PT 12.7 Seconds (9.4-12.1) H 03/03/19 02:16 Consult Discharge Plan - Plan Instructions: Chest Pain (ED) Referrals: Jerarod Aguiar Jr, MD [Primary Care Provider] - (1) Chest pain Qualifiers: Chest pain type: unspecified Qualified Code(s): R07.9 - Chest pain, uns pecified (4) Type 2 diabetes mellitus Qualifiers: Diabetes mellitus senior living insulin use: with rodent exterminator use Diabetes mellitus complication status: with kidney complications Diabetes mellitus complication detail: with chronic kidney disease Chronic kidney disease stage: stage 3 (moderate) Qualified Code(s): E11.22 - Type 2 diabetes mellitus with diabetic chronic kidney disease; N18.3 - Chronic kidney disease, stage 3 (moderate); Z79.4 - care home (current) use of insulin (5) Hypertension Qualifiers: Hypertension type: essential hypertension Qualified Code(s): I10 - Essential (primary) hypertension (6) Anemia Qualifiers: Anemia type: due to chronic kidney disease Chronic kidney disease stage: stage 4 (severe) Qualified Code(s): N18.4 - Chronic kidney disease, stage 4 (severe); D63.1 - Anemia in chronic kidney disease
[2019-03-03] MEDS ORDERED: *HR* Midazolam HCl 2 MG/2 ML VIAL ONE (10:59)
[2019-03-03] MEDS ORDERED: *HR* FentaNYL (PF) 100 MCG/2 ML VIAL ONE (10:59)
--- NOTE | 2019-03-03 10:59 | Pre-Sedation Evaluation ---
Pre-sedation evaluation - Pre-sedation checklist Date of procedure: 03/03/19 Procedure: [facility] Recent Vitals: Last Vital Signs Temp 98.5 F 03/03/19 07:20 Pulse 64 03/03/19 07:20 Resp 16 03/03/19 07:20 BP 156/76 03/03/19 07:20 Pulse Ox 99 03/03/19 07:20 H&P (including ROS) documented in medical record: Yes Previous reaction to sedatives/anesthetics: No Dietary Status: NPO after Midnight Airway Assessment: Patient can open mouth completely, TMJ function normal, Micrognathia (under-bite, receding chin) absent Dentition: No loose teeth or bridges Possible difficult airway: No ASA Classification *see protocol: CLASS II-Mild systemic disease Plan of Care: Pt appropriate candidate for procedure/moderate/conscious sedation, Risks/benefits of procedure/sedation discussed w/ patient/family Cardiac Registry (Cardio Only) - Functional Capacity Functional Capacity: < 4 METS - Clincal Frailty Scale Clinical Frailty Scale: Vulnerable
[2019-03-03] MEDS ORDERED: *HR* Bivalirudin 250 MG VIAL IVC ONE (11:12)
--- NOTE | 2019-03-03 11:40 | Nephrology Consult Note ---
Date of Encounter: 03/03/19 Time of Encounter: 12:00 Assessment and Plan (1) Chest pain Status: Acute LHC today per cardiology Qualifiers: Chest pain type: unspecified Qualified Code(s): R07.9 - Chest pain, unspecified (2) Chronic kidney disease (CKD), stage IV (severe) Status: Chronic SCr noted at 2.01, GFR 25, appears to be at baseline Will discuss risk/benefit of iv contrast expsoure and will plan for prophylaisx if needed Will check urine studies Will check PTH and vitamin D levels (3) Anemia Status: Chronic Etiology unclear, will check iron studies Qualifiers: Anemia type: due to chronic kidney disease Chronic kidney disease stage: stage 4 (severe) Qualified Code(s): N18.4 - Chronic kidney disease, stage 4 (severe); D63.1 - Anemia in chronic kidney disease (4) Hypomagnesemia Status: Acute Repleted, will monitor History of Present Illness - Reason for Consult Consult date: 03/03/19 Chronic Kidney Disease Requesting physician: Precious Galindo - History of Present Illness 63 y o female with PMH of HTN, DM, High chol and CKD admitted with acute chest pain. She was noted with elevated BP to 200/110 and elevated troponin. Renal consulted for elevated SCr and possible pending LHC. SCr noted at 2.01, GFR 25 on admission and was noted at 2.06 earlier in the month. ARON noted back in 2016.No other labs from this year or last year noted. Pt denies any N/D/D. No urinary sxs. Past Med Surg Social Fam HX - Past Medical History Medical history: diabetes, GERD, hyperlipidemia, hypertension, renal disease, thyroid disease Psychiatric history: anxiety - Past Surgical History Surgical History: appendectomy, cholecystectomy Additional surgical history: tonsillectomy - Social History Smoking Status: Former smoker Smokeless Tobacco Status: No Alcohol use: none Drug use: none - Family History Father Living Status: Hx Family Cardiac Disorders: Yes Hx Family Cancer: Yes Hx Family Endocrine Disorder: Yes (Diabetes) Hx Family Medical Disorders: (Cirrhosis) Mother Living Status: Hx Family Endocrine Disorder: Yes (Diabetes) Medications and Allergies Levothyroxine [Synthroid] 50 mcg PO QAM 09/22/16 [History] Omeprazole [PriLOSEC] 20 mg PO DAILY 09/22/16 [History] Pediatric Multivit Comb No.136 [Children Multivitamin] 1 tab PO DAILY 09/22/16 [History] Calcium Carbonate [Calcium] 500 mg PO DAILY 03/02/19 [History] Cholecalciferol (D-3) [Vitamin D] 1,000 unit PO DAILY 03/02/19 [History] Cider Vinegar [Apple Cider Vinegar] 600 mg PO DAILY 03/02/19 [History] Glimepiride [Amaryl] 4 mg PO BID 03/02/19 [History] Insulin Glargine,Hum.rec.anlog [Lantus Solostar] 44 unit SQ HS 03/02/19 [History] Insulin Regular, Human [Novolin R] 20 unit SQ TIDAC 03/02/19 [History] Simvastatin [Zocor] 20 mg PO DAILY 03/02/19 [History] Aspirin 81 mg PO DAILY #30 tab.chew 03/04/19 [Rx] Carvedilol [Coreg] 12.5 mg PO BIDWM #60 tablet 03/04/19 [Rx] Clopidogrel [Plavix] 75 mg PO DAILY #30 tablet 03/04/19 [Rx] amLODIPine [Norvasc] 10 mg PO DAILY #30 tablet 03/04/19 [Rx] hydrALAZINE [HydrALAZINE] 25 mg PO TID #60 tablet 03/04/19 [Rx] Allergy/AdvReac Type Severity Reaction Status Date / Time iron Allergy Anaphylaxis Verified 03/02/19 19:42 Penicillins Allergy Anaphylaxis Verified 03/02/19 19:42 metronidazole [From Flagyl] AdvReac Nausea Verified 03/02/19 19:42 Pain Pill AdvReac Nausea Uncoded 03/02/19 07:26 Review of Systems All Systems review (narrative): The rest of the systems are negative Constitutional: fatigue (denies) Cardiovascular: chest pain (admits), leg edema (denies) Respiratory: dyspnea (denies) Gastrointestinal: diarrhea (denies), nausea (denies), vomiting (denies) Exam - Vital Signs Vital signs: Initial Vital Signs Temp Pulse Resp BP Pulse Ox 97.5 F L 82 16 220/101 100 03/02/19 07:26 03/02/19 07:26 03/02/19 07:26 03/02/19 07:26 03/02/19 07:26 Vital Signs - Last 8 Hours Temp Pulse Resp BP Pulse Ox 03/03/19 07:20 98.5 F 64 16 156/76 99 Intake and Output 03/02/19 03/03/19 03/03/19 23:59 07:59 15:59 Intake Total 200 / 700 / 77 Balance 200 / 700 / 77 Intake: IV Fluids 200 / 700 77 / 77 Heparin 25,000 UNIT/250 ML D5W 72 / 72 57 / 57 25,000 unit In 250 ml @ 11.5 UNIT/KG/HR 9.974 mls/hr IVC . Q24H G[facility]ETTE Rx#:[id number] Nitroglycerin Premix 25 MG/250 / 20 / 20 ML 25 mg In 250 ml @ 5 MCG/MIN 3 mls/hr IVC .Q24H [facility] Rx#: [id number] Magnesium Sulfate 2 GM In 0.9 % 104 / 104 Sodium Chloride 100 ML @ 52 mls/hr IVPB ONCE ONE Rx#: [id number] Oral 0 / 0 0 / 0 Other: # Voids 0 2 Weight 85.8 kg Blood Glucose* 296 267 - General Appearance General appearance: well-developed, well-nourished EENT: ATNC, mucous membranes moist Neck: no JVD, supple Respiratory: clear Cardiology: no edema, normal S1, normal S2 Gastrointestinal: no tenderness, no guarding Integumentary: warm and dry Neurologic: no focal deficit Musculoskeletal: no deformities Psychiatric: mood/affect appropriate, cooperative Results - Lab Results 03/04/19 02:24 03/04/19 02:24 Most recent lab results 03/03/19 02:16 Calcium 9.1 Magnesium 2.0 Consult Discharge Plan - Plan Instructions: Hydralazine (By mouth), Amlodipine (By mouth), Carvedilol (By mouth), Clopidogrel (By mouth), Chest Pain (ED) Additional Instructions: Check HEART RATE and BLOOD PRESSURE daily at home before taking blood pressure medications. Referrals: Jerardo Aguiar Jr, MD [Primary Care Provider] - Garth Yang MD [Partnered Physician] - Prescriptions: Aspirin 81 mg PO DAILY #30 tab.chew Carvedilol [Coreg] 12.5 mg PO BIDWM #60 tablet hydrALAZINE [HydrALAZINE] 25 mg PO TID #60 tablet amLODIPine [Norvasc] 10 mg PO DAILY #30 tablet Clopidogrel [Plavix] 75 mg PO DAILY #30 tablet
--- NOTE | 2019-03-03 11:58 | Invasive Diagnostic Lab Proc ---
Name: Bhumika Echavarria Date of Study: 03/03/2019 Date: 1955 Ht: 63.0in Medical Record#: [id number] Age: 63 Wt: 189.16lb Gender: Female BSA: 1.89 Order #: [id number] BMI: 33.52 Physicians Procedure Physician: Uzma King MD, [facility] Referring MD: Referring MD: Staff Name Position Time In Kirby Garrison RN Hospital Scientist 11:05 AM Jaclyn Byers RT (R) Scrub 11:05 AM Jabari Rodriguez RN Monitor 11:05 AM Uzma Pereira RT (R) Scrub 11:05 AM Jim Bustillos RN Nurse 11:23 AM Indications Indication Non-Stemi Procedures Performed Procedure L HRT ARTERY/VENTRICLE ANGIO Pre-Procedure Checklist Pt not NPO for procedure and MD aware. Plan of Care Patient will tolerate the procedure without complications. Adequate level of comfort will be maintained. Hemodynamics will remain stable Patient will recover from procedure without complications. Respiratory function will be maintained. Cardiac rhythm will remain stable. Patient temperature will be maintained. Patient and/or family have verbalized understanding of the procedure. Patient Education Intravenous Access Time IV Size Location DC'd Fluid/Drip Rate Units RN 11:00 AM 18g 1 10/13" Patent On Arrival Lt Antecubital Allergies Penicillin iron Penicillins Pain Pill metronidazole Vital Signs Time BP (mmHg) HR (bpm) O2 Sat. RR (bpm) LOC 11:08 AM / % 5 = Fully awake and oriented or at pre-proc level 11:08 AM / % 4 = Oriented but drowsy 11:24 AM / % 5 = Fully awake and oriented or at pre-proc level 11:08 AM 166 / 62 59 93 % 14 11:12 AM 157 / 71 71 98 % 18 11:17 AM 165 / 77 57 100 % 11:22 AM 176 / 80 52 100 % 19 11:27 AM 187 / 86 64 100 % 19 11:32 AM 195 / 94 58 100 % 18 Procedural Medications Time Medication Dose Units Method Given By 11:09 AM Oxygen 2 L/min nasal cannula Kirby Garrison RN 11:09 AM Versed 2 mg Intravenous Kirby Garrison RN 11:09 AM Fentanyl 50 mcg Intravenous Kirby Garrison RN 11:22 AM Lidocaine 2% 19 ml Subcutaneous Uzma King MD, [facility] ASA Classification: CLASS II- Mild systemic disease (i.e. well-controlled diabetes, hypertension, asthma, cigarette smoking) Layo Score Preprocedure Postprocedure Activity 2- Moves 4 extremities sustained head lift Activity 2- Moves 4 extremities sustained head lift Circulation 2- SBP +/= 20 points of pre-anesthetic level Circulation 2- SBP +/= 20 points of pre-anesthetic level Consciousness 2- Awake and alert oriented x 3 Consciousness 2- Awake and alert oriented x 3 O2 Saturation 2- Able to maintain O2 satruation of 92% on room air O2 Saturation 2- Able to maintain O2 satruation of 92% on room air Respiratory 2- Able to deep breathe and cough well Respiratory 2- Able to deep breathe and cough well Total Score 10 Total Score 10 Contrast Agent: Isovue Diagnostic Contrast: 67 ml Total Contrast: 67 ml Fluoro Dose: 31 mGy Procedure Log Time Note Enter By 11:04 AM Pt arrived to at 11:04 oparker 11:05 AM Patient charges- Angio tray pack, Navilyst 3mm J, Pulse Oximetry and ACIST tubing and transducer oparker 11:05 AM Kirby Garrison RN Position: Hospital Scientist Time in: 11:05 oparker 11:05 AM Jaclyn Byers RT (R) Position: Scrub Time in: 11:05 oparker 11:05 AM Jabari Rodriguez RN Position: Monitor Time in: 11:05 oparker 11:05 AM Sign in performed according to hospital policy. Informed consent was obtained. oparker 11:05 AM Uzma Pereira RT (R) Position: Scrub orientee Time in: 11:05 oparker 11:05 AM Physician arrived 11:05 oparker 11:05 AM Riccardo completed oparker 11:07 AM Vitals capture started with the following parameters, Patient=Adult, Interval=5 min, Initial Rvvicslt=605 mmHg, Deflation Rate=5 mmHg, Cuff placed on Left Arm 11:08 AM HR=59 bpm, NIDE=841/62 mmhg, SpO2=93.0 %, Resp=14 B/min, Comment=Sinus Osmar 11:08 AM Time: 11:08 Patient comfortable and pain free: Yes oparker 11:08 AM Time: 11:08LOC: 5 = Fully awake and oriented or at pre-proc level oparker 11:09 AM Time: 11: Oxygen on at 2 L/min per nasal cannula by Kirby Garrison RN oparker 11: AM Time: : Versed 2 mg Intravenous Given by Kirby Garrison RN oparalessia 11: AM Time: 11: Fentanyl 50 mcg Intravenous Given by Kirby Garrison RN oparalessia 11:10 AM CathStat 11:12 AM ASA Class CLASS II- Mild systemic disease (i.e. well-controlled diabetes, hypertension, asthma, cigarette smoking) oparker 11:12 AM HR=71 bpm, PZVF=298/71 mmhg, SpO2=98.0 %, Resp=18 B/min, Comment=Sinus Osmar 11:13 AM Hair removed from procedure site in holding area using clippers. Bilateral groin prepped with Chloraprep by Jabari Rodriguez RN, then patient was draped. Skin intact. oparker 11:17 AM Pressure channel 1 zero failed. 11:17 AM HR=57 bpm, IMLC=224/77 mmhg, GjK5=279.0 % 11:18 AM Pressure channel 1 zeroed. 11:20 AM Time out was performed according to hospital policy. Conscious sedation and anesthesia was achieved (see medication log with in this report above) oparker 11:20 AM Procedure start :07 oparker : AM Time: 19 ml Lidocaine 2% to right groin Subcutaneous Given by Uzma King MD, [facility] oparker 11: AM Access obtained by percutaneous puncture. 5Fr 10cm Terumo Carlton sheath placed in right Femoral artery. [id number] oparker 11: AM HR=52 bpm, YLOP=300/80 mmhg, HvB1=873.0 %, Resp=19 B/min, EtCO2=34 mmHg, Comment=Sinus Osmar 11: AM 0.035 145cm Navilyst 3mmJ wire [id number] oparker 11: AM Time: 11:08 Patient comfortable and pain free: Yes oparker 11:24 AM Jim Bustillos RN Position: Nurse Time in: oparker 11:24 AM Time: 11:08LOC: 4 = Oriented but drowsy oparker 11:25 AM 5Fr FL 4 catheter inserted over the wire DNC oparker 11:25 AM LCA angiography performed in multiple views. oparker 11:26 AM Catheter removed oparker 11:26 AM 5Fr FR 4 catheter inserted over the wire DNC oparker 11:27 AM Recorded Pressure: Ao, HR=67, Condition=Condition 1 (Aorta) Ao 103/1/42 11:27 AM HR=64 bpm, YRHI=028/86 mmhg, UqG1=109.0 %, Resp=19 B/min, EtCO2=35 mmHg, Comment=Sinus Osmar 11:27 AM Recorded Pressure: Ao, HR=64, Condition=Condition 1 (Aorta) Ao 91/52/70 11:28 AM Catheter removed oparker 11:29 AM 5Fr Pigtail catheter inserted over the wire DN oparker 11:29 AM Catheter crossed the aortic valve and was selectively placed in the left ventricle. Pressures recorded on pullback for left heart catheterization. oparker 11:30 AM Pressure channel 1 zeroed. 11:30 AM Recorded Pressure: LV, HR=61, Condition=Condition 1 (Left Ventricle) LV 163/10/14 11:30 AM Bolus angiogram of left Ventricle complete: 8 ml/sec for a total of 24 mls oparker 11:30 AM Recorded Pressure: LV, Ao, HR=55, Condition=Condition 1 (Left Ventricle) LV 112/40/45, (Aorta) Ao 119/66/92 11:31 AM Catheter removed oparker 11:32 AM Bolus angiogram of right Femoral complete: 4 ml/sec for a total of 7 mls oparker 11:32 AM Wire removed oparker 11:32 AM HR=58 bpm, MXPD=245/94 mmhg, NdW3=040.0 %, Resp=18 B/min, EtCO2=34 mmHg, Comment=Sinus Osamr 11:33 AM Isovue 370 - 200ml,1 Bottle(s) used. oparker 11:33 AM Procedure completed at 11:33 03/03/2019 oparker 11:34 AM Arterial sheath pulled, Mynx closure device used and was Successful [id number] S/N. oparker 11:34 AM Estimated Blood Loss: minimal oparker 11:34 AM Post ECG Sinus Bradycardia oparker 11:34 AM Sign out completed: Radiation Dose 214.98 mGy, 30.9 Gy/cm2 Fluoro Time: 1.8 Isovue 370 - 200ml contrast 67 ml given by Uzma King MD, [facility]. Complications: None. The patient was discharged out of the manager cardiac cath in stable condition. Sedation minutes 25. Cardiac Rehab Consult needed: No. Confirmed administered medications: Yes oparker 11:34 AM Post Blood Pressure 195/94 oparker 11:34 AM 11:34 Post Pulses Bilateral DP 2+ oparker 11:34 AM Information taught Cardiac Cath and Mynx oparker 11:34 AM Education needs Procedure, Plan of Care, and Disease Process oparker 11:34 AM Learning barriers :None oparker 11:34 AM Education Methods Verbal oparker 11:34 AM Education evaluation Able to repeat information oparker 11:35 AM Site status No bleeding/hematoma - Rt Groin as reported by Jaclyn Byers RT (R) at 11:35 oparker 11:39 AM Time: 11:24LOC: 5 = Fully awake and oriented or at pre-proc level oparker 11:39 AM Time: 11:23 Patient comfortable and pain free: Yes oparker 11:39 AM Did you address FEDERICO flow and Dominance? YesCoronary Dominance: right oparker 11:40 AM Vitals capture stopped. 11:42 AM Opsite applied oparker 11:42 AM Report given to jac NERI Pt taken to 2NE Room #25. 11:42 oparker 11:43 AM Family placed in consult room. oparker 11:43 AM Patient out of room: 11:43 oparker 11:43 AM Lesion found in Proximal LAD. Pre Stenosis: 15 Pre FEDERICO Flow: oparker 11:43 AM Lesion found in Mid LAD. Pre Stenosis: 30 Pre FEDERICO Flow: oparker 11:43 AM Lesion found in Proximal Circumflex. Pre Stenosis: 30 Pre FEDERICO Flow: oparker 11:44 AM Lesion found in Mid Circumflex. Pre Stenosis: 25 Pre FEDERICO Flow: oparker 11:44 AM Lesion found in Proximal RCA. Pre Stenosis: 20 Pre FEDERICO Flow: oparker 11:44 AM Lesion found in Mid RCA. Pre Stenosis: 20 Pre FEDERICO Flow: oparker 11:51 AM Right Coronary, Right Posterior Descending Arteries with Right Posterolateral and Acute Marginal branches with 20 % stenosis. If graft is supplying this area, 0 % stenosis oparker 11:51 AM Circumflex, Obtuse Marginal, Left Posterior Descending, and Left Posterolateral Coronary Arteries with 30 % stenosis. If graft is supplying this area, 0 % stenosis oparker 11:51 AM Proximal Left Anterior Descending Coronary Artery with 15% stenosis. If graft is supplying this territory, 0 % stenosis. oparker 11:51 AM Mid/Distal Left Anterior Descending Coronary Artery and diagonal branches with 30% stenosis. If graft is supplying this area, 0 % stenosis oparker Complications Complication None Hemodynamics Pressures Site Systolic/A Wave Diastolic/V Wave Mean AO 103 1 42 AO 91 52 70 LV 163 10 14 LV 112 40 45 AO 119 66 92 Post Procedure Information Blood Pressure: 195/94 mmHg Rhythm: Sinus Bradycardia Post procedural instructions were given Closure Device Time Device Success/Fail 03/03/2019 11:35:00 AM MynxGrip Successful Site Checks Time Location Status Staff Sheath In? Note 11:35 AM Rt Groin No bleeding/hematoma Jaclyn Byers RT (R) Pulses Time Site Pre-Procedure Post-Procedure Note 11:34:00 AM Bilateral DP 2+ Updated by Kirby Garrison RN on 03/03/2019 11:53:23 AM electronically signed on 03/03/2019 11:53:57 AM with status of Final
--- NOTE | 2019-03-03 11:59 | Event Note ---
Date of Encounter: 03/03/19 Time of Encounter: 12:00 - Cardiology Event Note Per discussion with Dr. Bell King, mild nonobstructive CAD. Recommend BP optimization. Echo pending. Cardiology signing off, re-consult PRN, f/u arranged.
[2019-03-03] MEDS ORDERED: amLODIPine 5 MG TABLET PO SCH (12:00)
[2019-03-03] MEDS ORDERED: 0.9 % Sodium Chloride 1,000 ML IVC SCH (12:00)
[2019-03-03 12:52] LABS: % Iron Saturation 6 % (15-50); Iron 23 mcg/dL (50-170); Transferrin 296 mg/dL (203-362)
[2019-03-03 13:09] LABS: Ferritin 8 ng/mL (10-120)
[2019-03-03] MEDS: Insulin LISPRO 300 UNITS/3 ML VIAL SQ SCH ×2 (13:16→17:40)
[2019-03-03 17:06] LABS: Bilirubin,Urine Negative (Negative); Blood,Urine Trace (Negative); Clarity,Urine Clear (Clear); Color,Urine Yellow (Yellow); Glucose,Urine (UA) 250 mg/dL (Normal); Ketones,Urine Negative (Negative); Leukocyte Esterase,Urine Moderate (Negative); Nitrite,Urine Positive (Negative); Protein,Urine 100 mg/dL (Neg-Trace); Specific Gravity,Urine > 1.030 (1.010-1.025); Urobilinogen,Urine Normal (Normal)
[2019-03-03 17:08] LABS: Bacteria,Urine Many per hpf (None-Few); Hyaline Casts,Urine None Seen per lpf (None-Few); Squamous Epithelial Cell,Urine Few per lpf (None-Few); WBC,Urine TNTC per hpf (0-3)
[2019-03-03 17:23] LABS: Protein/Creatinine Ratio,Urine 1.52 mg/mg (0.00-0.20)
[2019-03-03] MEDS: amLODIPine 5 MG TABLET PO SCH (21:15)
[2019-03-04 02:59] LABS: Basophils % 0.6 %; Eosinophils # 0.3 K/mcL (0.0-0.6); Eosinophils % 3.7 %; Hematocrit 29.8 % (35.3-44.9); Hemoglobin 8.9 g/dL (11.5-15.4); Immature Granulocytes % 0.6 % (0-4); Lymphocytes # 1.4 K/mcL (0.6-4.6); Mean Corpuscular HGB Conc 29.9 g/dL (31.6-35.5); Mean Corpuscular Hemoglobin 24.1 pg (28.0-33.3); Mean Corpuscular Volume 80.5 fL (83.0-100.0); Mean Platelet Volume 9.6 fL (9.4-12.4); Monocytes # 0.5 K/mcL (0.0-1.3); Neutrophils # 4.5 K/mcL (1.6-8.9); Platelet Count 252 K/mcL (140-400); Red Cell Distribution Width 16.2 % (11.5-14.5); Segmented Neutrophils % 67.1 %
[2019-03-04 03:21] LABS: Chol/HDL Ratio 4.1 (0-4.9)
[2019-03-04 03:22] LABS: Calcium 8.9 mg/dL (8.6-10.3); Magnesium 1.9 mg/dL (1.6-2.6); Potassium 4.1 mEq/L (3.5-5.1)
[2019-03-04] MEDS: *HR* Heparin 5,000 UNIT/ML VIAL SQ SCH ×2 (05:43→17:58)
[2019-03-04] MEDS: Aspirin 81 MG TAB.CHEW PO SCH (08:46)
[2019-03-04] MEDS: amLODIPine 5 MG TABLET PO SCH (08:47)
[2019-03-04] MEDS: Insulin Regular, Human 100 UNIT/ML SQ SCH ×3 (08:49→17:57)
[2019-03-04] MEDS: Insulin LISPRO 300 UNITS/3 ML VIAL SQ SCH ×3 (08:50→17:57)
[2019-03-04] MEDS ORDERED: Cholecalciferol (D-3) 1,000 UNIT TABLET PO SCH (09:00)
[2019-03-04] MEDS ORDERED: Insulin DETEMIR 100 UNIT/ML X5UNITS SQ SCH (09:00)
[2019-03-04] MEDS: Pantoprazole 40 MG VIAL IVP SCH (09:01)
--- NOTE | 2019-03-04 14:52 | Discharge Summary ---
- NOTES TO OUTPATIENT PROVIDER Notes to Outpatient Provider: Follow-up with PCP in 2 days-monitor blood pressure and blood glucose level. BMP within 1 week. Follow-up final urine culture report. Resume Lasix after getting cleared by PCP or nephrology. Get established with pork cutlet maker -follow-up into 3 week. Follow-up with cardiology in 1-2 week. May consider SABRINA inhibitor if appropriate candidate by pork cutlet maker Orders not resulted at time of discharge: Pending orders 03/03/19 07:23 Stool guiac [Occult Blood,Stool] [BF] Stat 03/03/19 17:00 Culture,Urine [RM] Routine 03/05/19 04:00 BMP [Basic Metabolic Panel] AM 0400 Complete Blood Count [HEME] AM 0400 03/06/19 04:00 Complete Blood Count [HEME] AM 0400 Date of Encounter: 03/04/19 Time of Encounter: 14:50 - Discharge Diagnosis (1) Hypertensive urgency Priority: Primary Status: Acute Assessment and Plan: Most likely emergency as patient also has troponin high, proteinuria but negative CT. Patient presented with blood pressure 220/101 --> 114/64 after sublingual nitroglycerin. Continue amlodipine 10 mg daily, carvedilol 12.5 mg by mouth twice a day - limited dose titration due to low normal heart rate in [place] for bradycardia. Hydralazine 25 mg by mouth 3 times a day started. Once creatinine is stable then SABRINA inhibitor can be considered by PCP. (2) Chest pain Priority: Primary Status: Acute Assessment and Plan: 63-year-old female with diabetes, HTN, and remote tobacco dependence since complained of sharp stabbing chest pain awoke her from sleep. Chest pain improved with nitroglycerin. EKG revealed normal sinus rhythm, normal axis, no ST segment elevations or depressions. Initial troponin was 0.05, repeat troponin 0.25. Trend up serial troponin Cardiology consulted and did perform heart catheterization -mild nonobstructive CAD. Recommend medical management and aggressive risk factor modification including BP optimization and blood glucose monitoring. Advised to continue Plavix for now until seen by cardiology. Needs to follow PCP cardiology on OPD basis ECHO- Impressions: LVEF 60-65%. Mild concentric left ventricular hypertrophy. Normal LV chamber size and function. Normal right ventricular structure and function. Mild aortic stenosis.Peak aortic velocity and mean gradient are 2.37m/s and 11 mmHg, respectively. No evidence of pulmonary hypertension. Left Ventricular Wall Motion: Rest Echo Findings All wall segments showed normal motion. Qualifiers: Chest pain type: unspecified Qualified Code(s): R07.9 - Chest pain, unspecified (3) Type 2 diabetes mellitus Priority: Primary Status: Chronic Assessment and Plan: Hemoglobin A1c 10.4 on 02/02/19. Continue home insulin. Close monitoring blood glucose level and further adjustment of medication his PCP. 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 Continue beta holden and amlodipine. No SABRINA inhibitor due to increased creatinine but can be considered by PCP on OPD basis. Hydralazine 25 mg by mouth 3 times a day started. Close monitoring of blood pressure Qualifiers: Hypertension type: essential hypertension Qualified Code(s): I10 - Essential (primary) hypertension (5) Anemia Priority: Secondary Status: Chronic Assessment and Plan: Chronic most likely due to underlying CK D. Hemoglobin 9.9, baseline level around 9. Qualifiers: Anemia type: due to chronic kidney disease Chronic kidney disease stage: stage 4 (severe) Qualified Code(s): N18.4 - Chronic kidney disease, stage 4 (severe); D63.1 - Anemia in chronic kidney disease (6) Elevated troponin Priority: Primary Status: Resolved Assessment and Plan: Trending up troponin. As mentioned above (7) Chronic kidney disease (CKD), stage IV (severe) Priority: Primary Status: Chronic Assessment and Plan: Avoid nephrotoxic drug. Patient is to get established with nephrology (8) Abnormal urinalysis Priority: Primary Status: Acute Assessment and Plan: Abnormal urine analysis but patient denies any urinary symptoms, no fever normal white count. Urine culture is still pending with no growth yet but final report is awaited. offered empiric abx prescription but patient declined. Patient denies history of UTI in the past. It was advised to follow urine c ulture with PCP if any concern then contact the office (9) Hypomagnesemia Priority: Primary Status: Acute Assessment and Plan: improved. (10) Obesity (BMI 30-39.9) Priority: Secondary Status: Chronic Assessment and Plan: Lifestyle modification. Hospital course: Ms. Echavarria is a 63 year old female patient got admitted for chest pain, hypertensive emergency. Raised troponin with trending up pattern therefore cardiology consulted and performed heart catheterization but no stent placement -advised for medical management. Antihypertensive medication is started. Consulted pork cutlet maker for acute on CK D. Wellness Nurse Rn ok [facility] with outpatient follow-up in 3-4 weeks, BMP within 1 week. Please see diagnosis section of dc summary for details. At the time of discharge patient is chest pain-free, hemodynamically and clinically stable, ambulating and tolerating oral diet. Will discharge patient on new medicine beta holden, amlodipine, hydralazine for blood pressure control. Aspirin, 30 days of Plavix as per cardiology recommendation. Will hold Lasix and hydrochlorothiazide until cleared by PCP on pork cutlet maker Discharge discussed with: patient, nurse, custom decorating consultant - Time Spent with Patient Total time spent providing and/or coordinating discharge services: Time spent: Less than 30 minutes - Discharge Medications Prescriptions: New Aspirin 81 mg PO DAILY #30 tab.chew Carvedilol [Coreg] 12.5 mg PO BIDWM #60 tablet hydrALAZINE [HydrALAZINE] 25 mg PO TID #60 tablet amLODIPine [Norvasc] 10 mg PO DAILY #30 tablet Clopidogrel [Plavix] 75 mg PO DAILY #30 tablet Continued Levothyroxine [Synthroid] 50 mcg PO QAM Pediatric Multivit Comb No.136 [Children Multivitamin] 1 tab PO DAILY Omeprazole [PriLOSEC] 20 mg PO DAILY Glimepiride [Amaryl] 4 mg PO BID Insulin Glargine,Hum.rec.anlog [Lantus Solostar] 44 unit SQ HS Insulin Regular, Human [Novolin R] 20 unit SQ TIDAC Simvastatin [Zocor] 20 mg PO DAILY Cholecalciferol (D-3) [Vitamin D] 1,000 unit PO DAILY Calcium Carbonate [Calcium] 500 mg PO DAILY Cider Vinegar [Apple Cider Vinegar] 600 mg PO DAILY Discontinued Furosemide [Lasix] 40 mg PO DAILY hydroCHLOROthiazide [Hydrochlorothiazide] 25 mg PO DAILY Home Medications: Levothyroxine [Synthroid] 50 mcg PO QAM 09/22/16 [History] Omeprazole [PriLOSEC] 20 mg PO DAILY 09/22/16 [History] Pediatric Multivit Comb No.136 [Children Multivitamin] 1 tab PO DAILY 09/22/16 [History] Calcium Carbonate [Calcium] 500 mg PO DAILY 03/02/19 [History] Cholecalciferol (D-3) [Vitamin D] 1,000 unit PO DAILY 03/02/19 [History] Cider Vinegar [Apple Cider Vinegar] 600 mg PO DAILY 03/02/19 [History] Glimepiride [Amaryl] 4 mg PO BID 03/02/19 [History] Insulin Glargine,Hum.rec.anlog [Lantus Solostar] 44 unit SQ HS 03/02/19 [History] Insulin Regular, Human [Novolin R] 20 unit SQ TIDAC 03/02/19 [History] Simvastatin [Zocor] 20 mg PO DAILY 03/02/19 [History] Aspirin 81 mg PO DAILY #30 tab.chew 03/04/19 [Rx] Carvedilol [Coreg] 12.5 mg PO BIDWM #60 tablet 03/04/19 [Rx] Clopidogrel [Plavix] 75 mg PO DAILY #30 tablet 03/04/19 [Rx] amLODIPine [Norvasc] 10 mg PO DAILY #30 tablet 03/04/19 [Rx] hydrALAZINE [HydrALAZINE] 25 mg PO TID #60 tablet 03/04/19 [Rx] Allergies/Adverse Reactions: Allergy/AdvReac Type Severity Reaction Status Date / Time iron Allergy Anaphylaxis Verified 03/02/19 19:42 Penicillins Allergy Anaphylaxis Verified 03/02/19 19:42 metronidazole [From Flagyl] AdvReac Nausea Verified 03/02/19 19:42 Pain Pill AdvReac Nausea Uncoded 03/02/19 07:26 Date of admission: 03/02/19 09:04 Primary care physician: Jerardo Aguiar Jr, MD Consults: 03/02/19 10:59 Consult to Cardiology [CONS] Routine Comment: Consulting Provider: Cardiology Anju Reason for Consult: Chest pain, elevated troponin, NSTEMI Time Notified: 11:01 Call Completed: Yes 03/02/19 16:46 Consult to Cardiac Rehabilitation-Phase1 [CONS] Routine Comment: Reason for Consult: NSTEMI Call Completed: Yes 03/03/19 07:33 Consult to Nephrology [CONS] Routine Consulting Provider: Kidney Anju/LAUREN/SARITHA/MARTHA Reason for Consult: ARON on CKD Call Completed: Yes - Constitutional Vitals: Temp Pulse Resp BP Pulse Ox 98.4 F 61 18 162/76 99 03/04/19 11:48 03/04/19 11:48 03/04/19 04:41 03/04/19 11:48 03/04/19 11:48 General appearance: Present: cooperative, A&O X 3, pleasant, answers questions appropriately Exam: General appearance: No acute distress Eye exam: EOMI, PERRLA ENT exam: Moist oral mucosa Neck nontender, supple Respiratory exam: Clear to auscultation bilaterally Cardiovascular exam: Regular rate and rhythm, no systolic murmur Abdominal exam: Soft, nontender, nondistended, positive bowel sounds Extremities exam: No calf tenderness, no pedal edema Present: Skin-no rash, warm, dry, intact Neurological exam: Alert, awake, oriented 3, CN II-XII intact, no focal deficits. No facial droop. Normal speech. - Patient Status Disposition: Home, Self-Care Condition: Good Overall status at discharge: patient is progressing back to baseline - Discharge Instructions Instructions: Chest Pain (ED) Follow Up With: Jerardo Aguiar Jr, MD [Primary Care Provider] - - Diet and Activity Diet: diabetic diet, low fat, low cholesterol, low salt diet
[2019-03-04] MEDS ORDERED: hydrALAZINE 25 MG TABLET PO SCH (16:00)
[2019-03-04 17:39] VITALS: BP 130/75
--- NOTE | 2019-03-04 23:43 | Nephrology Progress Note ---
Date of Encounter: 03/04/19 Time of Encounter: 13:00 - Assessment and Plan (1) Chest pain Status: Acute Qualifiers: Chest pain type: unspecified Qualified Code(s): R07.9 - Chest pain, unspecified (2) Chronic kidney disease (CKD), stage IV (severe) Status: Chronic (3) Anemia Status: Chronic Qualifiers: Anemia type: due to chronic kidney disease Chronic kidney disease stage: stage 4 (severe) Qualified Code(s): N18.4 - Chronic kidney disease, stage 4 (severe); D63.1 - Anemia in chronic kidney disease (4) Hypomagnesemia Status: Acute Objective - Vital Signs Vital signs: Vital Signs Temp Pulse Resp BP Pulse Ox 03/04/19 17:37 68 16 130/75 99 03/04/19 15:56 98.7 F 69 175/85 98 03/04/19 11:48 98.4 F 61 162/76 99 03/04/19 07:44 97.9 F 62 174/63 95 03/04/19 04:41 98.8 F 64 18 132/71 96 03/04/19 00:24 98.6 F 71 18 149/69 91 Intake and Output 03/04/19 03/04/19 03/04/19 07:59 15:59 23:59 Intake Total 0 / 600 360 / 600 240 / 600 Balance 0 / 600 360 / 600 240 / 600 Intake: Oral 0 / 600 360 / 600 240 / 600 Other: Meal Breakfast Dinner Percent of Meal Consumed 100% 100% # Voids 1 Weight 85.8 kg Blood Glucose* 257 152 Patient Weight 03/04/19 23:59 Weight 85.8 kg - Lab 03/04/19 02:24 03/04/19 02:24 Consult Discharge Plan - Plan Instructions: Hydralazine (By mouth), Amlodipine (By mouth), Carvedilol (By mouth), Clopidogrel (By mouth), Chest Pain (ED) Additional Instructions: Check HEART RATE and BLOOD PRESSURE daily at home before taking blood pressure medications. Referrals: Jerardo Aguiar Jr, MD [Primary Care Provider] - Garth Yang MD [Partnered Physician] - Prescriptions: Aspirin 81 mg PO DAILY #30 tab.chew Carvedilol [Coreg] 12.5 mg PO BIDWM #60 tablet hydrALAZINE [HydrALAZINE] 25 mg PO TID #60 tablet amLODIPine [Norvasc] 10 mg PO DAILY #30 tablet Clopidogrel [Plavix] 75 mg PO DAILY #30 tablet
--- NOTE | 2019-03-06 15:57 | Electrocardiograph Report ---
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
--- NOTE | 2019-03-06 22:30 | Electrocardiograph Report ---
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
== END 2019-03-04 19:10 | disposition home or self-care (01) ==
LOC: EMEROOARM 07:20 → 3NENU 07:20 → 2NENU 19:00
PROVIDERS: ADMIT Internal Medicine Nephrology; ATTEND Internal Medicine Nephrology

== ENCOUNTER 2019-09-02 10:31 | Inpatient (IN) ==
[2019-09-02] MEDS ORDERED: Ondansetron 4 MG/2 ML VIAL IVP ONE ×3 (10:59→21:01)
[2019-09-02] MEDS ORDERED: 0.9 % Sodium Chloride 1,000 ML IVC ONE ×2 (10:59→11:00)
[2019-09-02] MEDS ORDERED: Isovue-370 500 ML BOTTLE IVP ONE ×4 (11:01→21:01)
[2019-09-02] MEDS ORDERED: Morphine Sulfate 2 MG/ML SYRINGE IVP ONE (11:02)
[2019-09-02] MEDS ORDERED: Cefepime HCl 2,000 MG in Water for inj. (sterile) 20 ML IVP STA (11:08)
[2019-09-02 11:42] LABS: VBG HCO3 28 mEq/L (21-27); VBG PCO2 37 mmHg (41-51); VBG PH 7.48 pH Units (7.32-7.42); VBG PO2 80 mmHg (25-50)
[2019-09-02 12:03] LABS: Alanine Aminotransferase 10 Units/L (7-52); Albumin 3.3 g/dL (3.5-5.7); Albumin/Globulin Ratio 0.7 (1.1-2.2); Alkaline Phosphatase 96 Units/L (34-104); Aspartate Amino Transferase 13 Units/L (13-39); BUN/Creatinine Ratio 23 (6-26); Bilirubin,Total 0.5 mg/dL (0.3-1.0); Blood Urea Nitrogen 68 mg/dL (8-23); Calcium 9.4 mg/dL (8.6-10.3); Carbon Dioxide 27 mEq/L (23-29); Chloride 87 mEq/L (98-107); Globulin 4.5 g/dL (2.4-3.5); Glucose 401 mg/dL (70-105); Lipase 17 Units/L (11-82); Osmolality,Calculated 305 (280-300); Potassium 3.2 mEq/L (3.5-5.1); Sodium 129 mEq/L (136-145); Total Protein 7.8 g/dL (6.4-8.9); eGFR For African Americans 19 (> 60); eGFR For Non-African Americans 16 (> 60)
[2019-09-02 12:04] LABS: Troponin I < 0.03 ng/mL (< 0.04)
[2019-09-02 13:48] LABS: Bilirubin,Urine Negative (Negative); Blood,Urine Negative (Negative); Color,Urine Yellow (Yellow); Glucose,Urine (UA) 250 mg/dL (Normal); Ketones,Urine Negative (Negative); Leukocyte Esterase,Urine Negative (Negative); Nitrite,Urine Negative (Negative); Protein,Urine 30 mg/dL (Neg-Trace); Specific Gravity,Urine 1.015 (1.010-1.025); Urobilinogen,Urine Normal (Normal)
[2019-09-02 13:51] LABS: Basophils # 0.1 K/mcL (0.0-0.2); Basophils % 0.4 %; C-Reactive Protein 54 mg/L (Less than 10); Eosinophils # 0.1 K/mcL (0.0-0.6); Eosinophils % 0.8 %; Hematocrit 32.7 % (35.3-44.9); Immature Granulocytes % 1.8 % (0-4); Lymphocytes # 1.7 K/mcL (0.6-4.6); Lymphocytes % 12.5 %; Mean Corpuscular HGB Conc 30.6 g/dL (31.6-35.5); Mean Corpuscular Hemoglobin 21.6 pg (28.0-33.3); Mean Corpuscular Volume 70.8 fL (83.0-100.0); Monocytes # 0.6 K/mcL (0.0-1.3); Monocytes % 4.2 %; Platelet Count 514 K/mcL (140-400); Red Blood Count 4.62 M/mcL (3.82-4.97); Red Cell Distribution Width 17.3 % (11.5-14.5); Segmented Neutrophils % 80.3 %; White Blood Count 13.6 K/mcL (4.3-11.1)
[2019-09-02 13:57] LABS: Bacteria,Urine None Seen per hpf (None-Few); Clarity,Urine Clear (Clear); Hyaline Casts,Urine None Seen per lpf (None-Few); RBC,Urine 0-3 per hpf (0-3); Squamous Epithelial Cell,Urine Moderate per lpf (None-Few); WBC,Urine 0-3 per hpf (0-3)
[2019-09-02] MEDS ORDERED: 0.9 % Sodium Chloride 500 ML IVC ONE (13:57)
[2019-09-02] MEDS ORDERED: Acetaminophen 325 MG TABLET PO PRN ×2 (15:31→21:01)
[2019-09-02] MEDS ORDERED: *HR* OxyCODONE Immed Rel 5 MG TABLET PO PRN ×3 (15:31→21:01)
[2019-09-02] MEDS ORDERED: Ondansetron 4 MG/2 ML VIAL IVP PRN (15:31)
[2019-09-02] MEDS ORDERED: Naloxone 0.4 MG/ML INJ IVP PRN ×2 (15:31→21:01)
[2019-09-02] MEDS ORDERED: *HR* HYDROcodone/Acet 5/325 mg TABLET PO PRN (15:31)
[2019-09-02] MEDS ORDERED: D5% in Water 1,000 ML IVC PRN ×2 (15:34→21:01)
[2019-09-02] MEDS ORDERED: *HR* Dextrose 50 % in Water (Syg) 50 ML SYRINGE IVP PRN ×2 (15:34→21:01)
[2019-09-02] MEDS ORDERED: Dextrose Gel 15 GM/37.5 ML TUBE PO PRN ×4 (15:34→21:01)
[2019-09-02 16:28] LABS: Estimated Average Glucose 272 mg/dl
[2019-09-02] MEDS ORDERED: Insulin LISPRO 300 UNITS/3 ML VIAL SQ SCH ×2 (16:30→21:00)
[2019-09-02] MEDS ORDERED: Insulin Human Regular 10 UNIT in 0.9 % Sodium Chloride 10 ML IV ONE ×2 (16:31→22:05)
[2019-09-02] MEDS ORDERED: Potassium Chloride 40 MEQ, Lidocaine 1% 2 ML in 0.9 % Sodium Chloride 500 ML IVPB ONE (16:56)
[2019-09-02] MEDS ORDERED: *HR* Promethazine 25 MG/ML VIAL IVP PRN ×3 (16:57→21:01)
[2019-09-02] MEDS ORDERED: 0.9 % Sodium Chloride 1,000 ML IVC SCH ×3 (17:00→22:03)
[2019-09-02] MEDS ORDERED: Cefepime HCl 1,000 MG in Water for inj. (sterile) 10 ML IVP SCH (18:00)
[2019-09-02] MEDS ORDERED: Vancomycin 1,000 MG VIAL ONE (19:00)
[2019-09-02] MEDS ORDERED: Lidocaine 1% 20 ML MDV ONE (19:00)
[2019-09-02] MEDS ORDERED: *HR* HYDROmorphone (PF) 1 MG/ML SYRINGE IVP PRN ×2 (19:08→21:01)
[2019-09-02] MEDS ORDERED: *HR* FentaNYL (PF) 100 MCG/2 ML VIAL ONE (19:30)
[2019-09-02] MEDS ORDERED: *HR* Propofol 200 MG/20 ML VIAL IVP ONE (19:30)
[2019-09-02] MEDS ORDERED: *HR* Midazolam HCl 2 MG/2 ML VIAL ONE (19:30)
[2019-09-02] MEDS ORDERED: Lidocaine -MPF 2% 2 ML VIAL ONE (19:33)
[2019-09-02] MEDS: Insulin LISPRO 300 UNITS/3 ML VIAL SQ SCH (21:17)
[2019-09-03] MEDS ORDERED: *HR* Heparin 5,000 UNIT/ML VIAL SQ SCH
[2019-09-03] MEDS: *HR* Heparin 5,000 UNIT/ML VIAL SQ SCH ×4 (00:54→23:32)
[2019-09-03] MEDS: *HR* HYDROcodone/Acet 5/325 mg TABLET PO PRN ×3 (02:25→23:31)
[2019-09-03] MEDS: *HR* OxyCODONE Immed Rel 5 MG TABLET PO PRN ×2 (03:37→11:58)
[2019-09-03 05:52] LABS: Basophils % 0.3 %; Eosinophils # 0.1 K/mcL (0.0-0.6); Eosinophils % 1.1 %; Hematocrit 27.8 % (35.3-44.9); Immature Granulocytes % 1.4 % (0-4); Lymphocytes # 1.7 K/mcL (0.6-4.6); Lymphocytes % 13.7 %; Mean Corpuscular HGB Conc 29.1 g/dL (31.6-35.5); Mean Corpuscular Hemoglobin 21.7 pg (28.0-33.3); Mean Corpuscular Volume 74.3 fL (83.0-100.0); Mean Platelet Volume 9.6 fL (9.4-12.4); Monocytes # 0.6 K/mcL (0.0-1.3); Monocytes % 5.1 %; Neutrophils # 9.7 K/mcL (1.6-8.9); Platelet Count 349 K/mcL (140-400); Red Blood Count 3.74 M/mcL (3.82-4.97); Red Cell Distribution Width 17.6 % (11.5-14.5); Segmented Neutrophils % 78.4 %; White Blood Count 12.4 K/mcL (4.3-11.1)
[2019-09-03 05:53] LABS: Hemoglobin 8.1 g/dL (11.5-15.4)
[2019-09-03 05:57] LABS: INR 1.3; Prothrombin Time 14.3 Seconds (9.4-12.1)
[2019-09-03 06:15] LABS: Calcium 8.2 mg/dL (8.6-10.3); Magnesium 1.6 mg/dL (1.6-2.6); Phosphorous 3.4 mg/dL (2.7-4.5)
[2019-09-03] MEDS: 0.9 % Sodium Chloride 1,000 ML IVC SCH ×3 (06:33→16:44)
[2019-09-03] MEDS: *HR* Promethazine 25 MG/ML VIAL IVP PRN (08:09)
[2019-09-03] MEDS: carvediloL 6.25 MG TABLET PO SCH ×2 (08:16→16:46)
[2019-09-03] MEDS: Aspirin Enteric Coated 81 MG Tablet PO SCH (08:16)
[2019-09-03] MEDS: amLODIPine 5 MG TABLET PO SCH (08:18)
[2019-09-03] MEDS: Insulin LISPRO 300 UNITS/3 ML VIAL SQ SCH ×4 (08:22→20:17)
[2019-09-03] MEDS ORDERED: Potassium Chloride 40 MEQ, Lidocaine 1% 2 ML in 0.9 % Sodium Chloride 500 ML IVPB ONE (09:36)
[2019-09-03 11:18] LABS: Protein/Creatinine Ratio,Urine 0.66 mg/mg (0.00-0.20); Sodium, Urine 80.4 mEq/L
[2019-09-03] MEDS: Cefepime HCl 1,000 MG in Water for inj. (sterile) 10 ML IVP SCH (16:48)
[2019-09-03] MEDS: Insulin DETEMIR 100 UNIT/ML X5UNITS SQ SCH (20:18)
[2019-09-03] MEDS ORDERED: Insulin LISPRO 300 UNITS/3 ML VIAL SQ SCH (21:00)
[2019-09-04] MEDS ORDERED: *HR* OxyCODONE Immed Rel 5 MG TABLET PO ONE (01:45)
[2019-09-04 02:39] LABS: Mean Platelet Volume 9.8 fL (9.4-12.4)
[2019-09-04] MEDS: 0.9 % Sodium Chloride 1,000 ML IVC SCH ×3 (02:39→22:47)
[2019-09-04 02:41] LABS: Basophils # 0.1 K/mcL (0.0-0.2); Basophils % 0.6 %; Eosinophils # 0.2 K/mcL (0.0-0.6); Eosinophils % 1.9 %; Hemoglobin 7.6 g/dL (11.5-15.4); Immature Granulocytes % 1.3 % (0-4); Lymphocytes % 19.4 %; Mean Corpuscular HGB Conc 29.2 g/dL (31.6-35.5); Mean Corpuscular Volume 75.1 fL (83.0-100.0); Monocytes # 0.7 K/mcL (0.0-1.3); Monocytes % 6.6 %; Neutrophils # 7.3 K/mcL (1.6-8.9); Platelet Count 329 K/mcL (140-400); Red Blood Count 3.46 M/mcL (3.82-4.97); Red Cell Distribution Width 17.7 % (11.5-14.5); Segmented Neutrophils % 70.2 %; White Blood Count 10.4 K/mcL (4.3-11.1)
[2019-09-04 02:59] LABS: Calcium 8.3 mg/dL (8.6-10.3); Magnesium 1.5 mg/dL (1.6-2.6); Phosphorous 2.1 mg/dL (2.7-4.5); Potassium 3.5 mEq/L (3.5-5.1)
[2019-09-04] MEDS ORDERED: Potassium Phosphate 44 MEQ in 0.9 % Sodium Chloride 250 ML IVPB ONE (07:28)
[2019-09-04] MEDS: *HR* Promethazine 25 MG/ML VIAL IVP PRN (08:38)
[2019-09-04] MEDS: carvediloL 6.25 MG TABLET PO SCH ×2 (08:42→17:28)
[2019-09-04] MEDS: Aspirin Enteric Coated 81 MG Tablet PO SCH (08:42)
[2019-09-04] MEDS: *HR* Heparin 5,000 UNIT/ML VIAL SQ SCH ×3 (08:42→22:09)
[2019-09-04] MEDS: amLODIPine 5 MG TABLET PO SCH (08:42)
[2019-09-04] MEDS: Insulin LISPRO 300 UNITS/3 ML VIAL SQ SCH ×4 (08:43→20:59)
[2019-09-04] MEDS: Renal Vitamin 1 CAP CAPSULE PO SCH (08:43)
[2019-09-04 14:27] LABS: Hematocrit 27.9 % (35.3-44.9); Hemoglobin 8.2 g/dL (11.5-15.4)
[2019-09-04] MEDS: Cefepime HCl 1,000 MG in Water for inj. (sterile) 10 ML IVP SCH (17:29)
[2019-09-04] MEDS: Insulin DETEMIR 100 UNIT/ML X5UNITS SQ SCH (20:56)
[2019-09-04] MEDS: *HR* HYDROcodone/Acet 5/325 mg TABLET PO PRN (22:09)
[2019-09-05] MEDS: amLODIPine 5 MG TABLET PO SCH (08:38)
[2019-09-05] MEDS: Aspirin Enteric Coated 81 MG Tablet PO SCH (08:38)
[2019-09-05] MEDS: carvediloL 6.25 MG TABLET PO SCH ×2 (08:38→16:45)
[2019-09-05] MEDS: Renal Vitamin 1 CAP CAPSULE PO SCH (08:38)
[2019-09-05] MEDS: *HR* Heparin 5,000 UNIT/ML VIAL SQ SCH ×3 (08:39→23:33)
[2019-09-05] MEDS: Insulin LISPRO 300 UNITS/3 ML VIAL SQ SCH ×4 (08:39→20:15)
[2019-09-05] MEDS: 0.9 % Sodium Chloride 1,000 ML IVC SCH (08:39)
[2019-09-05 13:05] LABS: Basophils # 0.1 K/mcL (0.0-0.2); Basophils % 0.5 %; Eosinophils # 0.2 K/mcL (0.0-0.6); Eosinophils % 2.5 %; Hematocrit 30.1 % (35.3-44.9); Hemoglobin 8.9 g/dL (11.5-15.4); Immature Granulocytes % 1.3 % (0-4); Lymphocytes % 10.9 %; Mean Corpuscular HGB Conc 29.6 g/dL (31.6-35.5); Mean Corpuscular Hemoglobin 22.5 pg (28.0-33.3); Mean Platelet Volume 9.2 fL (9.4-12.4); Monocytes # 0.4 K/mcL (0.0-1.3); Monocytes % 3.8 %; Neutrophils # 7.5 K/mcL (1.6-8.9); Platelet Count 335 K/mcL (140-400); Red Blood Count 3.96 M/mcL (3.82-4.97); Red Cell Distribution Width 18.3 % (11.5-14.5); White Blood Count 9.3 K/mcL (4.3-11.1)
[2019-09-05 13:31] LABS: Calcium 8.7 mg/dL (8.6-10.3); Magnesium 1.8 mg/dL (1.6-2.6); Phosphorous 2.6 mg/dL (2.7-4.5); Potassium 3.8 mEq/L (3.5-5.1)
[2019-09-05] MEDS ORDERED: Lidocaine -MPF 1% 2 ML VIAL ID PRN (13:31)
[2019-09-05] MEDS: MetroNIDAZOLE 500 MG/100 ML 500 MG/100 ML BAG IVPB SCH ×2 (18:00→23:32)
[2019-09-05] MEDS: Cefepime HCl 1,000 MG in Water for inj. (sterile) 10 ML IVP SCH (18:02)
[2019-09-05] MEDS: Insulin DETEMIR 100 UNIT/ML X5UNITS SQ SCH (20:15)
[2019-09-05] MEDS: *HR* HYDROcodone/Acet 5/325 mg TABLET PO PRN (23:34)
[2019-09-06] MEDS: 0.9 % Sodium Chloride 1,000 ML IVC SCH ×3 (05:01→21:35)
[2019-09-06 05:46] LABS: Calcium 8.1 mg/dL (8.6-10.3); Magnesium 1.6 mg/dL (1.6-2.6); Phosphorous 2.8 mg/dL (2.7-4.5); Potassium 4.1 mEq/L (3.5-5.1)
[2019-09-06 06:06] LABS: Basophils # 0.1 K/mcL (0.0-0.2); Basophils % 0.6 %; Eosinophils # 0.3 K/mcL (0.0-0.6); Hematocrit 25.4 % (35.3-44.9); Hemoglobin 7.5 g/dL (11.5-15.4); Immature Granulocytes % 1.2 % (0-4); Lymphocytes # 1.5 K/mcL (0.6-4.6); Mean Corpuscular HGB Conc 29.5 g/dL (31.6-35.5); Mean Corpuscular Hemoglobin 21.8 pg (28.0-33.3); Mean Corpuscular Volume 73.8 fL (83.0-100.0); Mean Platelet Volume 9.2 fL (9.4-12.4); Monocytes # 0.4 K/mcL (0.0-1.3); Neutrophils # 6.4 K/mcL (1.6-8.9); Platelet Count 275 K/mcL (140-400); Red Blood Count 3.44 M/mcL (3.82-4.97); Red Cell Distribution Width 18.3 % (11.5-14.5); Segmented Neutrophils % 73.2 %; White Blood Count 8.7 K/mcL (4.3-11.1)
[2019-09-06] MEDS: carvediloL 6.25 MG TABLET PO SCH ×2 (08:08→17:44)
[2019-09-06] MEDS: hydrALAZINE 25 MG TABLET PO PRN ×2 (08:08→16:41)
[2019-09-06] MEDS: amLODIPine 5 MG TABLET PO SCH (08:08)
[2019-09-06] MEDS: Renal Vitamin 1 CAP CAPSULE PO SCH (08:08)
[2019-09-06] MEDS: Aspirin Enteric Coated 81 MG Tablet PO SCH (08:08)
[2019-09-06] MEDS: MetroNIDAZOLE 500 MG/100 ML 500 MG/100 ML BAG IVPB SCH ×2 (08:11→19:38)
[2019-09-06] MEDS: Insulin LISPRO 300 UNITS/3 ML VIAL SQ SCH ×5 (08:11→21:16)
[2019-09-06] MEDS: *HR* Heparin 5,000 UNIT/ML VIAL SQ SCH ×3 (08:12→23:26)
[2019-09-06] MEDS: *HR* Promethazine 25 MG/ML VIAL IVP PRN (16:05)
[2019-09-06] MEDS: Cefepime HCl 1,000 MG in Water for inj. (sterile) 10 ML IVP SCH (18:44)
[2019-09-06] MEDS: Insulin DETEMIR 100 UNIT/ML X5UNITS SQ SCH (21:17)
[2019-09-07] MEDS: hydrALAZINE 25 MG TABLET PO PRN (01:41)
[2019-09-07] MEDS: *HR* Promethazine 25 MG/ML VIAL IVP PRN (01:42)
[2019-09-07] MEDS: 0.9 % Sodium Chloride 1,000 ML IVC SCH ×3 (01:54→23:45)
[2019-09-07 02:46] LABS: Mean Corpuscular HGB Conc 29.6 g/dL (31.6-35.5); Mean Corpuscular Hemoglobin 21.9 pg (28.0-33.3); Mean Platelet Volume 9.7 fL (9.4-12.4); Platelet Count 316 K/mcL (140-400); Red Blood Count 3.65 M/mcL (3.82-4.97); Red Cell Distribution Width 18.6 % (11.5-14.5); White Blood Count 9.3 K/mcL (4.3-11.1)
[2019-09-07 03:04] LABS: Calcium 8.2 mg/dL (8.6-10.3); Potassium 3.6 mEq/L (3.5-5.1)
[2019-09-07] MEDS: carvediloL 6.25 MG TABLET PO SCH ×2 (08:36→15:23)
[2019-09-07] MEDS: Renal Vitamin 1 CAP CAPSULE PO SCH (08:36)
[2019-09-07] MEDS: Aspirin Enteric Coated 81 MG Tablet PO SCH (08:36)
[2019-09-07] MEDS: amLODIPine 5 MG TABLET PO SCH (08:37)
[2019-09-07] MEDS: *HR* Heparin 5,000 UNIT/ML VIAL SQ SCH ×3 (08:37→23:30)
[2019-09-07] MEDS: Insulin DETEMIR 100 UNIT/ML X5UNITS SQ SCH ×2 (08:47→21:14)
[2019-09-07] MEDS: Insulin LISPRO 300 UNITS/3 ML VIAL SQ SCH ×4 (08:47→21:13)
[2019-09-07] MEDS ORDERED: Heparin 1,000 UNITS/500 mL 500 ML ONE (11:14)
[2019-09-07] MEDS: Cefepime HCl 1,000 MG in Water for inj. (sterile) 10 ML IVP SCH (17:09)
[2019-09-07] MEDS: *HR* HYDROcodone/Acet 5/325 mg TABLET PO PRN (21:13)
[2019-09-08 05:54] LABS: Hematocrit 25.4 % (35.3-44.9); Hemoglobin 7.4 g/dL (11.5-15.4); Mean Corpuscular HGB Conc 29.1 g/dL (31.6-35.5); Mean Corpuscular Hemoglobin 21.6 pg (28.0-33.3); Mean Corpuscular Volume 74.1 fL (83.0-100.0); Mean Platelet Volume 9.4 fL (9.4-12.4); Platelet Count 264 K/mcL (140-400); Red Blood Count 3.43 M/mcL (3.82-4.97); Red Cell Distribution Width 18.9 % (11.5-14.5); White Blood Count 6.9 K/mcL (4.3-11.1)
[2019-09-08 06:10] LABS: Calcium 8.1 mg/dL (8.6-10.3); Potassium 3.6 mEq/L (3.5-5.1)
[2019-09-08] MEDS: *HR* Heparin 5,000 UNIT/ML VIAL SQ SCH ×3 (07:38→23:27)
[2019-09-08] MEDS: amLODIPine 5 MG TABLET PO SCH (07:38)
[2019-09-08] MEDS: carvediloL 6.25 MG TABLET PO SCH ×2 (07:38→17:09)
[2019-09-08] MEDS: Aspirin Enteric Coated 81 MG Tablet PO SCH (07:38)
[2019-09-08] MEDS: Renal Vitamin 1 CAP CAPSULE PO SCH (07:38)
[2019-09-08] MEDS: 0.9 % Sodium Chloride 1,000 ML IVC SCH ×2 (07:39→17:08)
[2019-09-08] MEDS: Insulin LISPRO 300 UNITS/3 ML VIAL SQ SCH ×4 (07:39→20:32)
[2019-09-08] MEDS: Insulin DETEMIR 100 UNIT/ML X5UNITS SQ SCH ×2 (07:39→20:32)
[2019-09-08] MEDS: hydroCHLOROthiazide 25 MG TABLET PO SCH (08:58)
[2019-09-08] MEDS: *HR* Promethazine 25 MG/ML VIAL IVP PRN (11:28)
[2019-09-08] MEDS: Cefepime HCl 2,000 MG in Water for inj. (sterile) 20 ML IVP SCH (17:09)
[2019-09-09 04:25] LABS: Hematocrit 25.8 % (35.3-44.9); Hemoglobin 7.7 g/dL (11.5-15.4); Mean Corpuscular HGB Conc 29.8 g/dL (31.6-35.5); Mean Corpuscular Hemoglobin 21.9 pg (28.0-33.3); Mean Corpuscular Volume 73.5 fL (83.0-100.0); Mean Platelet Volume 8.9 fL (9.4-12.4); Platelet Count 265 K/mcL (140-400); Red Blood Count 3.51 M/mcL (3.82-4.97); Red Cell Distribution Width 19.2 % (11.5-14.5); White Blood Count 7.3 K/mcL (4.3-11.1)
[2019-09-09 04:45] LABS: BUN/Creatinine Ratio 10 (6-26); Blood Urea Nitrogen 11 mg/dL (8-23); Calcium 8.5 mg/dL (8.6-10.3); Carbon Dioxide 22 mEq/L (23-29); Chloride 112 mEq/L (98-107); Glucose 99 mg/dL (70-105); Magnesium 1.3 mg/dL (1.6-2.6); Osmolality,Calculated 289 (280-300); Potassium 3.3 mEq/L (3.5-5.1); Sodium 140 mEq/L (136-145); eGFR For African Americans > 60 (> 60); eGFR For Non-African Americans 50 (> 60)
[2019-09-09] MEDS: *HR* Promethazine 25 MG/ML VIAL IVP PRN (06:36)
[2019-09-09] MEDS: Insulin LISPRO 300 UNITS/3 ML VIAL SQ SCH ×4 (07:34→21:35)
[2019-09-09] MEDS: Aspirin Enteric Coated 81 MG Tablet PO SCH (07:51)
[2019-09-09] MEDS: carvediloL 6.25 MG TABLET PO SCH ×2 (07:52→16:44)
[2019-09-09] MEDS: *HR* Heparin 5,000 UNIT/ML VIAL SQ SCH ×3 (07:52→23:16)
[2019-09-09] MEDS: amLODIPine 5 MG TABLET PO SCH (07:52)
[2019-09-09] MEDS: hydroCHLOROthiazide 25 MG TABLET PO SCH (07:52)
[2019-09-09] MEDS: Renal Vitamin 1 CAP CAPSULE PO SCH (07:52)
[2019-09-09] MEDS: Insulin DETEMIR 100 UNIT/ML X5UNITS SQ SCH ×2 (07:52→21:36)
[2019-09-09] MEDS: Cefepime HCl 2,000 MG in Water for inj. (sterile) 20 ML IVP SCH (16:42)
[2019-09-10] MEDS: *HR* HYDROcodone/Acet 5/325 mg TABLET PO PRN (02:36)
[2019-09-10 04:42] LABS: Hematocrit 23.8 % (35.3-44.9); Hemoglobin 7.1 g/dL (11.5-15.4); Mean Corpuscular HGB Conc 29.8 g/dL (31.6-35.5); Mean Corpuscular Volume 73.9 fL (83.0-100.0); Mean Platelet Volume 9.2 fL (9.4-12.4); Platelet Count 222 K/mcL (140-400); Red Blood Count 3.22 M/mcL (3.82-4.97); White Blood Count 6.7 K/mcL (4.3-11.1)
[2019-09-10 05:12] LABS: Albumin 2.5 g/dL (3.5-5.7); Albumin/Globulin Ratio 0.9 (1.1-2.2); Bilirubin,Indirect 0.3 mg/dL (0.0-1.0); Bilirubin,Total 0.3 mg/dL (0.3-1.0); Calcium 8.4 mg/dL (8.6-10.3); Globulin 2.8 g/dL (2.4-3.5); Magnesium 1.6 mg/dL (1.6-2.6); Potassium 3.7 mEq/L (3.5-5.1); Total Protein 5.3 g/dL (6.4-8.9)
[2019-09-10] MEDS: Renal Vitamin 1 CAP CAPSULE PO SCH (08:56)
[2019-09-10] MEDS: Aspirin Enteric Coated 81 MG Tablet PO SCH (08:57)
[2019-09-10] MEDS: hydroCHLOROthiazide 25 MG TABLET PO SCH (08:57)
[2019-09-10] MEDS: carvediloL 6.25 MG TABLET PO SCH (08:57)
[2019-09-10] MEDS: *HR* Heparin 5,000 UNIT/ML VIAL SQ SCH (08:57)
[2019-09-10] MEDS: amLODIPine 5 MG TABLET PO SCH (08:57)
[2019-09-10] MEDS: Insulin LISPRO 300 UNITS/3 ML VIAL SQ SCH ×2 (08:58→14:55)
[2019-09-10] MEDS ORDERED: 0.9 % Sodium Chloride 250 ML ONE (10:12)
[2019-09-10 13:55] VITALS: BP 173/81
[2019-09-10] MEDS: Insulin DETEMIR 100 UNIT/ML X5UNITS SQ SCH (14:55)
[2019-09-10 15:26] LABS: Hematocrit 29.8 % (35.3-44.9)
== END 2019-09-10 17:09 | disposition home health service (06) | DRG 628 ==
LOC: EMEROOARM 10:31 → 3BNU 10:31 → OBSVTOIN 15:53 → SUATTDRO 15:53 → 3BNU 16:42
PROVIDERS: ADMIT Internal Medicine; ATTEND Internal Medicine

== ENCOUNTER 2019-11-08 10:47 | Observation (INO) ==
[2019-11-08 11:36] LABS: Hemoglobin 11.3 g/dL (11.5-15.4); Mean Corpuscular HGB Conc 31.4 g/dL (31.6-35.5); Mean Corpuscular Hemoglobin 23.7 pg (28.0-33.3); Mean Corpuscular Volume 75.5 fL (83.0-100.0); Mean Platelet Volume 9.5 fL (9.4-12.4); Platelet Count 371 K/mcL (140-400); Red Blood Count 4.77 M/mcL (3.82-4.97); Red Cell Distribution Width 17.3 % (11.5-14.5); White Blood Count 10.8 K/mcL (4.3-11.1)
[2019-11-08 11:57] LABS: BUN/Creatinine Ratio 28 (6-26); Blood Urea Nitrogen 73 mg/dL (8-23); Calcium 9.3 mg/dL (8.6-10.3); Carbon Dioxide 25 mEq/L (23-29); Chloride 98 mEq/L (98-107); Glucose 97 mg/dL (70-105); Osmolality,Calculated 305 (280-300); Potassium 3.3 mEq/L (3.5-5.1); Sodium 137 mEq/L (136-145); Troponin I < 0.03 ng/mL (< 0.04); eGFR For African Americans 23 (> 60); eGFR For Non-African Americans 19 (> 60)
[2019-11-08] MEDS ORDERED: Naloxone 0.4 MG/ML INJ IVP PRN (13:48)
[2019-11-08] MEDS ORDERED: Dextrose Gel 15 GM/37.5 ML TUBE PO PRN ×2 (13:50)
[2019-11-08] MEDS ORDERED: *HR* Dextrose 50 % in Water (Syg) 50 ML SYRINGE IVP PRN (13:50)
[2019-11-08] MEDS ORDERED: D5% in Water 1,000 ML IVC PRN (13:50)
[2019-11-08] MEDS: *HR* Heparin 5,000 UNIT/ML VIAL SQ SCH (16:08)
[2019-11-08] MEDS: 0.9 % Sodium Chloride 1,000 ML IVC SCH (16:11)
[2019-11-08] MEDS ORDERED: Insulin LISPRO 300 UNITS/3 ML VIAL SQ SCH ×2 (16:30→21:00)
[2019-11-08] MEDS ORDERED: Perflutren Lipid Microsphere 1.3 ML in 0.9 % Sodium Chloride 8.7 ML IVP ONE (17:36)
[2019-11-08] MEDS ORDERED: Acetaminophen 325 MG TABLET PO ONE (21:15)
[2019-11-09 04:12] LABS: Calcium 8.6 mg/dL (8.6-10.3); Phosphorous 4.1 mg/dL (2.7-4.5); Potassium 3.6 mEq/L (3.5-5.1)
[2019-11-09 04:14] LABS: Basophils % 0.4 %; Eosinophils # 0.4 K/mcL (0.0-0.6); Eosinophils % 4.9 %; Hematocrit 28.2 % (35.3-44.9); Immature Granulocytes % 0.7 % (0-4); Lymphocytes # 2.7 K/mcL (0.6-4.6); Lymphocytes % 29.8 %; Mean Corpuscular HGB Conc 30.1 g/dL (31.6-35.5); Mean Corpuscular Hemoglobin 23.7 pg (28.0-33.3); Mean Corpuscular Volume 78.6 fL (83.0-100.0); Mean Platelet Volume 9.7 fL (9.4-12.4); Monocytes # 0.6 K/mcL (0.0-1.3); Monocytes % 6.9 %; Neutrophils # 5.1 K/mcL (1.6-8.9); Platelet Count 247 K/mcL (140-400); Red Blood Count 3.59 M/mcL (3.82-4.97); Red Cell Distribution Width 17.4 % (11.5-14.5); Segmented Neutrophils % 57.3 %; White Blood Count 8.9 K/mcL (4.3-11.1)
[2019-11-09 04:29] LABS: Hemoglobin 8.5 g/dL (11.5-15.4)
[2019-11-09] MEDS: 0.9 % Sodium Chloride 1,000 ML IVC SCH (05:08)
[2019-11-09] MEDS: *HR* Heparin 5,000 UNIT/ML VIAL SQ SCH (05:08)
[2019-11-09] MEDS ORDERED: Ondansetron ODT 4 MG TAB.RAPDIS PO PRN (07:33)
[2019-11-09] MEDS ORDERED: Insulin LISPRO 300 UNITS/3 ML VIAL SQ SCH ×2 (07:45→08:00)
[2019-11-09] MEDS: hydroCHLOROthiazide 25 MG TABLET PO SCH ×2 (08:57→08:58)
[2019-11-09] MEDS ORDERED: [UNRECOGNIZED DRUG - OTHER] PO SCH (09:00)
[2019-11-09] MEDS ORDERED: Aspirin Enteric Coated 81 MG Tablet PO SCH (09:00)
[2019-11-09] MEDS ORDERED: hydroCHLOROthiazide 25 MG TABLET PO SCH (09:00)
[2019-11-09 11:50] VITALS: BP 148/84
[2019-11-09] MEDS ORDERED: carvediloL 6.25 MG TABLET PO SCH (17:00)
[2019-11-09] MEDS ORDERED: Insulin DETEMIR 100 UNIT/ML X5UNITS SQ SCH (21:00)
== END 2019-11-09 14:25 | disposition home or self-care (01) ==
LOC: EMEROOARM 10:47 → 3BNU 10:47 → SUATTDRO 14:36 → 3BNU 15:20
PROVIDERS: ADMIT Internal Medicine; ATTEND Internal Medicine

== ENCOUNTER 2020-05-22 10:52 | Inpatient (IN) ==
[2020-05-22 12:21] LABS: Bilirubin,Urine Negative (Negative); Blood,Urine Negative (Negative); Clarity,Urine Clear (Clear); Color,Urine Colorless (Yellow); Glucose,Urine (UA) Normal (Normal); Ketones,Urine Negative (Negative); Leukocyte Esterase,Urine Negative (Negative); Nitrite,Urine Negative (Negative); PH,Urine 5.5 pH Units (5.0-8.0); Protein,Urine Trace mg/dL (Neg-Trace); Specific Gravity,Urine 1.016 (1.010-1.025); Urobilinogen,Urine Normal (Normal)
[2020-05-22 13:03] LABS: Basophils % 0.4 %; Eosinophils # 0.2 K/mcL (0.0-0.6); Eosinophils % 1.5 %; Hematocrit 33.1 % (35.3-44.9); Hemoglobin 9.8 g/dL (11.5-15.4); Immature Granulocytes % 0.7 % (0-4); Lymphocytes # 2.1 K/mcL (0.6-4.6); Lymphocytes % 18.8 %; Mean Corpuscular HGB Conc 29.6 g/dL (31.6-35.5); Mean Corpuscular Hemoglobin 23.3 pg (28.0-33.3); Mean Corpuscular Volume 78.8 fL (83.0-100.0); Mean Platelet Volume 8.8 fL (9.4-12.4); Monocytes # 0.9 K/mcL (0.0-1.3); Monocytes % 7.8 %; Neutrophils # 7.9 K/mcL (1.6-8.9); Nucleated Red Blood Cells 0.2 /100 WBC (0); Platelet Count 361 K/mcL (140-400); Red Cell Distribution Width 25.5 % (11.5-14.5); Segmented Neutrophils % 70.8 %; White Blood Count 11.2 K/mcL (4.3-11.1)
[2020-05-22 13:22] LABS: Calcium 9.1 mg/dL (8.6-10.3); Potassium 2.8 mEq/L (3.5-5.1)
[2020-05-22 13:25] LABS: Anisocytosis 1+ (Not Present); Platelet Estimate Normal (Normal)
[2020-05-22] MEDS ORDERED: Vancomycin 1,250 MG/262.5 ML IV.SOLN IVPB ONE (14:30)
[2020-05-22] MEDS ORDERED: 0.9 % Sodium Chloride 1,000 ML IVC ONE (15:51)
[2020-05-22] MEDS ORDERED: Potassium Chloride 40 MEQ, Lidocaine 1% 2 ML in 0.9 % Sodium Chloride 500 ML IVPB ONE (15:51)
[2020-05-22 16:20] LABS: Albumin 3.8 g/dL (3.5-5.7); Bilirubin,Indirect 0.2 mg/dL (0.0-1.0); Bilirubin,Total 0.2 mg/dL (0.3-1.0); Globulin 3.9 g/dL (2.4-3.5); Magnesium 2.3 mg/dL (1.6-2.6); Total Protein 7.7 g/dL (6.4-8.9)
[2020-05-22] MEDS ORDERED: Naloxone 0.4 MG/ML INJ IVP PRN (16:20)
[2020-05-22] MEDS ORDERED: Ondansetron 4 MG/2 ML VIAL IVP PRN (16:20)
[2020-05-22] MEDS ORDERED: D5% in Water 1,000 ML IVC PRN (16:22)
[2020-05-22] MEDS ORDERED: Dextrose Gel 15 GM/37.5 ML TUBE PO PRN ×2 (16:22)
[2020-05-22] MEDS ORDERED: *HR* Dextrose 50 % in Water (Vial) 50 ML VIAL IVP PRN (16:22)
[2020-05-22] MEDS ORDERED: Insulin LISPRO 300 UNITS/3 ML VIAL SQ SCH ×2 (16:30→21:00)
[2020-05-22] MEDS ORDERED: DAPTOmycin 250 MG in 0.9 % Sodium Chloride 100 ML IVPB SCH (17:00)
[2020-05-22] MEDS: 0.9 % Sodium Chloride 1,000 ML IVC SCH (17:39)
[2020-05-22] MEDS ORDERED: *HR* Heparin 5,000 UNIT/ML VIAL SQ SCH (18:00)
[2020-05-22] MEDS ORDERED: Cefepime HCl 1,000 MG in Water for inj. (sterile) 10 ML IVP SCH (18:00)
[2020-05-22 18:06] LABS: Adenovirus Not Detected (Not Detect); Bordetella Pertussis Not Detected (Not Detect); Chlamydophila pneumoniae Not Detected (Not Detect); Coronavirus 229E Not Detected (Not Detect); Coronavirus HKU1 Not Detected (Not Detect); Coronavirus NL63 Not Detected (Not Detect); Coronavirus OC43 Not Detected (Not Detect); Human Metapneumovirus Not Detected (Not Detect); Human Rhinovirus/Enterovirus Not Detected (Not Detect); Influenza A Subtype 2009 H1 Not Detected (Not Detect); Influenza B Not Detected (Not Detect); Mycoplasma pneumoniae Not Detected (Not Detect); Parainfluenza Virus 1 Not Detected (Not Detect); Parainfluenza Virus 2 Not Detected (Not Detect); Parainfluenza Virus 3 Not Detected (Not Detect); Parainfluenza Virus 4 Not Detected (Not Detect); Respiratory Syncytial Virus Not Detected (Not Detect)
[2020-05-22] MEDS: Clindamycin 600 MG/50 ML 600 MG/50 ML IV.SOLN IVPB SCH (20:19)
[2020-05-22] MEDS ORDERED: carvediloL 6.25 MG TABLET PO SCH (21:00)
[2020-05-22] MEDS ORDERED: Insulin DETEMIR 100 UNIT/ML X5UNITS SQ SCH (21:00)
[2020-05-22] MEDS ORDERED: *HR* Propofol 200 MG/20 ML VIAL IVP ONE (23:54)
[2020-05-23] MEDS: Clindamycin 600 MG/50 ML 600 MG/50 ML IV.SOLN IVPB SCH ×4 (00:23→23:09)
[2020-05-23] MEDS ORDERED: Lidocaine -MPF 2% 2 ML VIAL ONE (00:27)
[2020-05-23] MEDS ORDERED: Vancomycin 1,000 MG VIAL ONE (00:51)
[2020-05-23] MEDS ORDERED: Lidocaine 1% 20 ML MDV ONE (00:54)
[2020-05-23] MEDS ORDERED: *HR* FentaNYL (PF) 100 MCG/2 ML VIAL ONE (01:26)
[2020-05-23] MEDS ORDERED: *HR* PHENYLEPHRINE 1,000 MCG/10 ML SYRINGE IVP ONE (01:31)
[2020-05-23] MEDS ORDERED: 0.9 % Sodium Chloride 1,000 ML IVC SCH (02:13)
[2020-05-23] MEDS ORDERED: Dextrose Gel 15 GM/37.5 ML TUBE PO PRN ×2 (02:13)
[2020-05-23] MEDS ORDERED: *HR* Dextrose 50 % in Water (Vial) 50 ML VIAL IVP PRN (02:13)
[2020-05-23] MEDS ORDERED: D5% in Water 1,000 ML IVC PRN (02:13)
[2020-05-23] MEDS ORDERED: Naloxone 0.4 MG/ML INJ IVP PRN (02:13)
[2020-05-23] MEDS: 0.9 % Sodium Chloride 1,000 ML IVC SCH (03:23)
[2020-05-23 05:26] LABS: Basophils # 0.1 K/mcL (0.0-0.2); Basophils % 0.7 %; Eosinophils # 0.2 K/mcL (0.0-0.6); Eosinophils % 2.5 %; Hematocrit 25.8 % (35.3-44.9); Immature Granulocytes % 0.6 % (0-4); Lymphocytes # 1.4 K/mcL (0.6-4.6); Lymphocytes % 17.2 %; Mean Corpuscular HGB Conc 29.5 g/dL (31.6-35.5); Mean Corpuscular Hemoglobin 23.8 pg (28.0-33.3); Mean Corpuscular Volume 80.9 fL (83.0-100.0); Mean Platelet Volume 9.1 fL (9.4-12.4); Monocytes # 0.7 K/mcL (0.0-1.3); Monocytes % 8.4 %; Nucleated Red Blood Cells 0.2 /100 WBC (0); Platelet Count 289 K/mcL (140-400); Red Blood Count 3.19 M/mcL (3.82-4.97); Red Cell Distribution Width 25.5 % (11.5-14.5); Segmented Neutrophils % 70.6 %; White Blood Count 8.3 K/mcL (4.3-11.1)
[2020-05-23] MEDS: Cefepime HCl 1,000 MG in Water for inj. (sterile) 10 ML IVP SCH ×2 (05:29→17:42)
[2020-05-23] MEDS: *HR* Heparin 5,000 UNIT/ML VIAL SQ SCH ×2 (05:30→17:43)
[2020-05-23 05:47] LABS: Calcium 7.8 mg/dL (8.6-10.3); Phosphorous 6.2 mg/dL (2.7-4.5); Potassium 2.9 mEq/L (3.5-5.1)
[2020-05-23 05:48] LABS: Hemoglobin 7.6 g/dL (11.5-15.4); Neutrophils # 5.9 K/mcL (1.6-8.9)
[2020-05-23 06:23] LABS: Anisocytosis 1+ (Not Present); Platelet Estimate Normal (Normal)
[2020-05-23] MEDS: *HR* Promethazine 25 MG/ML VIAL IVP PRN (08:52)
[2020-05-23] MEDS ORDERED: Cholecalciferol (D-3) 1,000 UNIT (25MCG) TABLET PO SCH (09:00)
[2020-05-23] MEDS ORDERED: Aspirin Enteric Coated 81 MG Tablet PO SCH (09:00)
[2020-05-23] MEDS ORDERED: carvediloL 6.25 MG TABLET PO SCH ×2 (09:00→17:00)
[2020-05-23] MEDS: Insulin LISPRO 300 UNITS/3 ML VIAL SQ SCH ×4 (09:02→21:19)
[2020-05-23] MEDS: Cholecalciferol (D-3) 1,000 UNIT (25MCG) TABLET PO SCH (09:14)
[2020-05-23] MEDS: Aspirin Enteric Coated 81 MG Tablet PO SCH (09:17)
[2020-05-23] MEDS: Potassium Chloride Elixir 20 MEQ/15 ML UDC PO SCH ×2 (09:20→21:24)
[2020-05-23] MEDS ORDERED: Sodium Bicarbonate 75 MEQ in 0.45 % Sodium Chloride 1,000 ML IVC SCH (09:30)
[2020-05-23] MEDS ORDERED: Insulin DETEMIR 100 UNIT/ML X5UNITS SQ SCH ×2 (11:56→21:00)
[2020-05-23 16:19] LABS: Calcium 7.9 mg/dL (8.6-10.3); Potassium 2.8 mEq/L (3.5-5.1)
[2020-05-23] MEDS: carvediloL 6.25 MG TABLET PO SCH (17:44)
[2020-05-23] MEDS: DAPTOmycin 500 MG in 0.9 % Sodium Chloride 100 ML IVPB SCH (17:48)
[2020-05-23 18:38] LABS: Hepatitis B Surface Antigen Nonreactive (Nonreactive)
[2020-05-23 19:08] LABS: Hepatitis A Antibody IgM Nonreactive (Nonreactive); Hepatitis B Core IgM Nonreactive (Nonreactive)
[2020-05-23 19:11] LABS: Hepatitis C Virus Antibody Nonreactive (Nonreactive)
[2020-05-23] MEDS: Insulin DETEMIR 100 UNIT/ML X5UNITS SQ SCH (21:24)
[2020-05-24 02:12] LABS: Creatinine,Urine 45 mg/dL; Microalbum/Creatinine Ratio,Ur 67 mcg/mg (Less than 30); Microalbumin,Urine 30 mg/L
[2020-05-24 02:13] LABS: Protein/Creatinine Ratio,Urine 0.64 mg/mg (0.00-0.20); Sodium, Urine 32.1 mEq/L
[2020-05-24 03:24] LABS: Basophils % 0.7 %; Hemoglobin 6.5 g/dL (11.5-15.4); Immature Granulocytes % 0.4 % (0-4)
[2020-05-24 03:25] LABS: Basophils # 0.1 K/mcL (0.0-0.2); Eosinophils # 0.3 K/mcL (0.0-0.6); Eosinophils % 4.5 %; Hematocrit 21.8 % (35.3-44.9); Lymphocytes # 1.3 K/mcL (0.6-4.6); Lymphocytes % 17.1 %; Mean Corpuscular HGB Conc 29.8 g/dL (31.6-35.5); Mean Corpuscular Hemoglobin 23.6 pg (28.0-33.3); Mean Platelet Volume 8.6 fL (9.4-12.4); Monocytes # 0.7 K/mcL (0.0-1.3); Monocytes % 9.1 %; Neutrophils # 5.1 K/mcL (1.6-8.9); Platelet Count 226 K/mcL (140-400); Red Blood Count 2.76 M/mcL (3.82-4.97); Red Cell Distribution Width 25.3 % (11.5-14.5); Segmented Neutrophils % 68.2 %; White Blood Count 7.5 K/mcL (4.3-11.1)
[2020-05-24 03:37] LABS: Calcium 8.1 mg/dL (8.6-10.3); Potassium 2.8 mEq/L (3.5-5.1)
[2020-05-24 03:41] LABS: % Iron Saturation 4 % (15-50); Iron 11 mcg/dL (50-170); Transferrin 212 mg/dL (203-362)
[2020-05-24 03:58] LABS: Ferritin 12 ng/mL (10-120)
[2020-05-24] MEDS: Cefepime HCl 1,000 MG in Water for inj. (sterile) 10 ML IVP SCH ×2 (04:42→17:11)
[2020-05-24 04:51] LABS: Anisocytosis 1+ (Not Present); Microcytosis Present (Not Present); Platelet Estimate Normal (Normal)
[2020-05-24] MEDS ORDERED: Potassium Chloride 20 MEQ, Lidocaine 1% 2 ML in 0.9 % Sodium Chloride 250 ML IVPB ONE (04:56)
[2020-05-24] MEDS ORDERED: 0.9 % Sodium Chloride 250 ML ONE ×2 (06:21→12:34)
[2020-05-24] MEDS ORDERED: Potassium Chloride 40 MEQ, Lidocaine 1% 2 ML in 0.9 % Sodium Chloride 500 ML IVPB ONE (07:31)
[2020-05-24 07:46] LABS: Magnesium 1.7 mg/dL (1.6-2.6); Phosphorous 3.6 mg/dL (2.7-4.5)
[2020-05-24] MEDS: Aspirin Enteric Coated 81 MG Tablet PO SCH (08:55)
[2020-05-24] MEDS: carvediloL 6.25 MG TABLET PO SCH ×2 (08:56→17:12)
[2020-05-24] MEDS: Cholecalciferol (D-3) 1,000 UNIT (25MCG) TABLET PO SCH (08:56)
[2020-05-24] MEDS: Insulin LISPRO 300 UNITS/3 ML VIAL SQ SCH ×4 (09:05→20:31)
[2020-05-24] MEDS: Insulin DETEMIR 100 UNIT/ML X5UNITS SQ SCH ×2 (09:06→20:25)
[2020-05-24] MEDS: Clindamycin 600 MG/50 ML 600 MG/50 ML IV.SOLN IVPB SCH ×3 (10:31→23:34)
[2020-05-24 19:05] LABS: Hematocrit 31.6 % (35.3-44.9); Hemoglobin 9.4 g/dL (11.5-15.4)
[2020-05-24] MEDS: Sennosides/Docusate Sodium TABLET PO SCH (20:25)
[2020-05-24] MEDS: Ondansetron 4 MG/2 ML VIAL IVP PRN (23:41)
[2020-05-25 00:52] LABS: Hematocrit 30.9 % (35.3-44.9)
[2020-05-25 00:55] LABS: Hemoglobin 9.2 g/dL (11.5-15.4)
[2020-05-25] MEDS: Cefepime HCl 1,000 MG in Water for inj. (sterile) 10 ML IVP SCH ×2 (05:15→17:23)
[2020-05-25 05:50] LABS: Basophils # 0.1 K/mcL (0.0-0.2); Basophils % 0.6 %; Eosinophils # 0.5 K/mcL (0.0-0.6); Eosinophils % 5.7 %; Hematocrit 30.4 % (35.3-44.9); Hemoglobin 9.4 g/dL (11.5-15.4); Immature Granulocytes % 0.7 % (0-4); Lymphocytes # 1.3 K/mcL (0.6-4.6); Lymphocytes % 15.5 %; Mean Corpuscular HGB Conc 30.9 g/dL (31.6-35.5); Mean Corpuscular Hemoglobin 25.6 pg (28.0-33.3); Mean Corpuscular Volume 82.8 fL (83.0-100.0); Mean Platelet Volume 8.5 fL (9.4-12.4); Monocytes # 0.9 K/mcL (0.0-1.3); Monocytes % 10.2 %; Neutrophils # 5.7 K/mcL (1.6-8.9); Platelet Count 226 K/mcL (140-400); Red Blood Count 3.67 M/mcL (3.82-4.97); Red Cell Distribution Width 23.9 % (11.5-14.5); Segmented Neutrophils % 67.3 %; White Blood Count 8.4 K/mcL (4.3-11.1)
[2020-05-25 06:10] LABS: Calcium 8.9 mg/dL (8.6-10.3); Magnesium 1.8 mg/dL (1.6-2.6); Phosphorous 3.3 mg/dL (2.7-4.5); Potassium 3.2 mEq/L (3.5-5.1)
[2020-05-25 06:14] LABS: Anisocytosis 2+ (Not Present); Microcytosis Present (Not Present); Platelet Estimate Normal (Normal)
[2020-05-25] MEDS ORDERED: Potassium Chloride 40 MEQ, Lidocaine 1% 2 ML in 0.9 % Sodium Chloride 500 ML IVPB ONE (07:48)
[2020-05-25] MEDS: Insulin DETEMIR 100 UNIT/ML X5UNITS SQ SCH ×2 (09:21→21:30)
[2020-05-25] MEDS: Sennosides/Docusate Sodium TABLET PO SCH ×2 (09:21→21:30)
[2020-05-25] MEDS: Clindamycin 600 MG/50 ML 600 MG/50 ML IV.SOLN IVPB SCH ×2 (09:22→15:28)
[2020-05-25] MEDS: carvediloL 6.25 MG TABLET PO SCH ×2 (09:22→17:23)
[2020-05-25] MEDS: Aspirin Enteric Coated 81 MG Tablet PO SCH (09:22)
[2020-05-25] MEDS: Insulin LISPRO 300 UNITS/3 ML VIAL SQ SCH ×4 (09:23→21:30)
[2020-05-25] MEDS: Cholecalciferol (D-3) 1,000 UNIT (25MCG) TABLET PO SCH (09:24)
[2020-05-25] MEDS ORDERED: polyethylene glycoL 3350 17 GM POWD.PACK PO PRN (10:59)
[2020-05-25] MEDS: amLODIPine 5 MG TABLET PO SCH (11:33)
[2020-05-25] MEDS: Ondansetron 4 MG/2 ML VIAL IVP PRN (13:34)
[2020-05-25] MEDS: DAPTOmycin 500 MG in 0.9 % Sodium Chloride 100 ML IVPB SCH (15:27)
[2020-05-25] MEDS: *HR* Promethazine 25 MG/ML VIAL IVP PRN (18:49)
[2020-05-26] MEDS: Clindamycin 600 MG/50 ML 600 MG/50 ML IV.SOLN IVPB SCH ×2 (00:54→09:22)
[2020-05-26 02:47] LABS: Calcium 8.7 mg/dL (8.6-10.3); Magnesium 1.8 mg/dL (1.6-2.6); Phosphorous 3.3 mg/dL (2.7-4.5); Potassium 3.5 mEq/L (3.5-5.1)
[2020-05-26 03:12] LABS: Basophils # 0.1 K/mcL (0.0-0.2); Basophils % 0.8 %; Eosinophils # 0.4 K/mcL (0.0-0.6); Eosinophils % 5.6 %; Hematocrit 29.8 % (35.3-44.9); Hemoglobin 8.9 g/dL (11.5-15.4); Immature Granulocytes % 0.3 % (0-4); Lymphocytes # 1.4 K/mcL (0.6-4.6); Lymphocytes % 18.1 %; Mean Corpuscular HGB Conc 29.9 g/dL (31.6-35.5); Mean Corpuscular Hemoglobin 25.1 pg (28.0-33.3); Mean Corpuscular Volume 84.2 fL (83.0-100.0); Mean Platelet Volume 8.6 fL (9.4-12.4); Monocytes # 0.8 K/mcL (0.0-1.3); Monocytes % 9.9 %; Neutrophils # 5.1 K/mcL (1.6-8.9); Platelet Count 230 K/mcL (140-400); Red Blood Count 3.54 M/mcL (3.82-4.97); Red Cell Distribution Width 24.1 % (11.5-14.5); Segmented Neutrophils % 65.3 %; White Blood Count 7.8 K/mcL (4.3-11.1)
[2020-05-26 03:53] LABS: Anisocytosis 2+ (Not Present); Hypochromasia Present (Not Present); Microcytosis Present (Not Present); Platelet Estimate Normal (Normal)
[2020-05-26] MEDS: Cefepime HCl 1,000 MG in Water for inj. (sterile) 10 ML IVP SCH (05:34)
[2020-05-26] MEDS: Sennosides/Docusate Sodium TABLET PO SCH ×2 (09:15→22:37)
[2020-05-26] MEDS: Aspirin Enteric Coated 81 MG Tablet PO SCH (09:15)
[2020-05-26] MEDS: carvediloL 6.25 MG TABLET PO SCH ×2 (09:16→17:32)
[2020-05-26] MEDS: amLODIPine 5 MG TABLET PO SCH (09:16)
[2020-05-26] MEDS: Insulin LISPRO 300 UNITS/3 ML VIAL SQ SCH ×4 (09:16→22:36)
[2020-05-26] MEDS: Cholecalciferol (D-3) 1,000 UNIT (25MCG) TABLET PO SCH (09:17)
[2020-05-26] MEDS: Insulin DETEMIR 100 UNIT/ML X5UNITS SQ SCH ×2 (09:22→22:37)
[2020-05-26] MEDS ORDERED: Lactulose Oral Soln 20 GM/30 ML UDC PO ONE (14:35)
[2020-05-26] MEDS: cefTRIAXone 2,000 MG in Water for inj. (sterile) 20 ML IVP SCH (17:32)
[2020-05-26] MEDS: Ondansetron 4 MG/2 ML VIAL IVP PRN (19:42)
[2020-05-27 07:30] LABS: Magnesium 1.7 mg/dL (1.6-2.6); Phosphorous 3.7 mg/dL (2.7-4.5)
[2020-05-27] MEDS: Cholecalciferol (D-3) 1,000 UNIT (25MCG) TABLET PO SCH (08:25)
[2020-05-27] MEDS: Sennosides/Docusate Sodium TABLET PO SCH ×2 (08:25→21:19)
[2020-05-27] MEDS: Aspirin Enteric Coated 81 MG Tablet PO SCH (08:25)
[2020-05-27] MEDS: amLODIPine 5 MG TABLET PO SCH (08:25)
[2020-05-27] MEDS: carvediloL 6.25 MG TABLET PO SCH ×2 (08:33→18:05)
[2020-05-27] MEDS: Insulin DETEMIR 100 UNIT/ML X5UNITS SQ SCH ×2 (08:34→21:19)
[2020-05-27 08:59] LABS: Hematocrit 33.8 % (35.3-44.9); Mean Corpuscular HGB Conc 29.6 g/dL (31.6-35.5); Mean Corpuscular Hemoglobin 25.3 pg (28.0-33.3); Mean Corpuscular Volume 85.6 fL (83.0-100.0); Mean Platelet Volume 8.7 fL (9.4-12.4); Platelet Count 251 K/mcL (140-400); Red Blood Count 3.95 M/mcL (3.82-4.97); Red Cell Distribution Width 23.5 % (11.5-14.5)
[2020-05-27 09:03] LABS: Calcium 9.2 mg/dL (8.6-10.3); Potassium 3.6 mEq/L (3.5-5.1)
[2020-05-27 10:57] LABS: Eosinophils # 0.3 K/mcL (0.0-0.6); Lymphocytes # 0.6 K/mcL (0.6-4.6); Monocytes # 1.4 K/mcL (0.0-1.3); Neutrophils # 5.6 K/mcL (1.6-8.9)
[2020-05-27 11:00] LABS: Anisocytosis 2+ (Not Present); Platelet Estimate Normal (Normal)
[2020-05-27] MEDS: Insulin LISPRO 300 UNITS/3 ML VIAL SQ SCH ×5 (11:03→21:29)
[2020-05-27] MEDS: Ondansetron 4 MG/2 ML VIAL IVP PRN ×2 (11:16→23:01)
[2020-05-27] MEDS ORDERED: Lactulose Oral Soln 20 GM/30 ML UDC PO PRN (13:58)
[2020-05-27] MEDS ORDERED: polyethylene glycoL 3350 17 GM POWD.PACK PO SCH (14:00)
[2020-05-27] MEDS: DAPTOmycin 500 MG in 0.9 % Sodium Chloride 100 ML IVPB SCH (14:21)
[2020-05-27] MEDS ORDERED: amLODIPine 5 MG TABLET PO ONE ×2 (15:16→18:30)
[2020-05-27] MEDS: cefTRIAXone 2,000 MG in Water for inj. (sterile) 20 ML IVP SCH (18:07)
[2020-05-28 09:40] LABS: Hematocrit 36.8 % (35.3-44.9); Hemoglobin 10.8 g/dL (11.5-15.4); Mean Corpuscular HGB Conc 29.3 g/dL (31.6-35.5); Mean Corpuscular Hemoglobin 24.7 pg (28.0-33.3); Mean Platelet Volume 8.4 fL (9.4-12.4); Platelet Count 289 K/mcL (140-400); Red Blood Count 4.38 M/mcL (3.82-4.97); Red Cell Distribution Width 23.2 % (11.5-14.5); White Blood Count 9.8 K/mcL (4.3-11.1)
[2020-05-28] MEDS: *HR* Promethazine 25 MG/ML VIAL IVP PRN (09:48)
[2020-05-28] MEDS: amLODIPine 5 MG TABLET PO SCH (09:58)
[2020-05-28 09:59] LABS: Calcium 9.4 mg/dL (8.6-10.3); Potassium 3.7 mEq/L (3.5-5.1)
[2020-05-28] MEDS: carvediloL 6.25 MG TABLET PO SCH ×2 (09:59→15:22)
[2020-05-28] MEDS: Aspirin Enteric Coated 81 MG Tablet PO SCH (10:00)
[2020-05-28] MEDS: Cholecalciferol (D-3) 1,000 UNIT (25MCG) TABLET PO SCH (10:00)
[2020-05-28] MEDS: Insulin LISPRO 300 UNITS/3 ML VIAL SQ SCH ×5 (10:01→21:19)
[2020-05-28] MEDS: Insulin DETEMIR 100 UNIT/ML X5UNITS SQ SCH ×2 (10:03→21:22)
[2020-05-28 12:09] LABS: Eosinophils # 0.2 K/mcL (0.0-0.6); Lymphocytes # 1.8 K/mcL (0.6-4.6); Monocytes # 0.6 K/mcL (0.0-1.3); Neutrophils # 7.3 K/mcL (1.6-8.9); Reactive Lymphocytes Present (Not Present)
[2020-05-28 12:10] LABS: Anisocytosis 2+ (Not Present); Platelet Estimate Normal (Normal); Toxic Granulation Present (Not Present)
[2020-05-28] MEDS: DAPTOmycin 500 MG in 0.9 % Sodium Chloride 100 ML IVPB SCH (16:17)
[2020-05-28] MEDS: cefTRIAXone 2,000 MG in Water for inj. (sterile) 20 ML IVP SCH (17:47)
[2020-05-28] MEDS: Sennosides/Docusate Sodium TABLET PO SCH ×2 (19:31→21:17)
[2020-05-29 03:03] LABS: Basophils # 0.1 K/mcL (0.0-0.2); Basophils % 0.8 %; Eosinophils # 0.4 K/mcL (0.0-0.6); Eosinophils % 3.7 %; Hematocrit 31.8 % (35.3-44.9); Hemoglobin 9.4 g/dL (11.5-15.4); Immature Granulocytes % 0.5 % (0-4); Lymphocytes # 2.2 K/mcL (0.6-4.6); Lymphocytes % 21.1 %; Mean Corpuscular HGB Conc 29.6 g/dL (31.6-35.5); Mean Corpuscular Hemoglobin 24.9 pg (28.0-33.3); Mean Corpuscular Volume 84.1 fL (83.0-100.0); Mean Platelet Volume 8.7 fL (9.4-12.4); Monocytes # 0.8 K/mcL (0.0-1.3); Monocytes % 7.3 %; Platelet Count 274 K/mcL (140-400); Red Blood Count 3.78 M/mcL (3.82-4.97); Red Cell Distribution Width 22.7 % (11.5-14.5); Segmented Neutrophils % 66.6 %; White Blood Count 10.5 K/mcL (4.3-11.1)
[2020-05-29 03:18] LABS: Calcium 8.6 mg/dL (8.6-10.3); Potassium 3.7 mEq/L (3.5-5.1)
[2020-05-29] MEDS: carvediloL 6.25 MG TABLET PO SCH ×2 (08:00→16:07)
[2020-05-29] MEDS: amLODIPine 5 MG TABLET PO SCH (08:00)
[2020-05-29] MEDS: Aspirin Enteric Coated 81 MG Tablet PO SCH (08:00)
[2020-05-29] MEDS: Cholecalciferol (D-3) 1,000 UNIT (25MCG) TABLET PO SCH (08:00)
[2020-05-29] MEDS: Insulin LISPRO 300 UNITS/3 ML VIAL SQ SCH ×7 (08:05→21:10)
[2020-05-29] MEDS: Ondansetron 4 MG/2 ML VIAL IVP PRN (08:06)
[2020-05-29] MEDS: Insulin DETEMIR 100 UNIT/ML X5UNITS SQ SCH ×2 (08:07→21:17)
[2020-05-29] MEDS: Sennosides/Docusate Sodium TABLET PO SCH ×2 (08:08→21:15)
[2020-05-29] MEDS ORDERED: Lidocaine/EPI 1:100k 1% 50 ML VIAL ONE (08:45)
[2020-05-29] MEDS ORDERED: Heparin 1,000 UNITS/500 mL 500 ML ONE (08:45)
[2020-05-29] MEDS ORDERED: 0.9 % Sodium Chloride 500 ML ONE (09:08)
[2020-05-29] MEDS: *HR* Promethazine 25 MG/ML VIAL IVP PRN (12:21)
[2020-05-29] MEDS: DAPTOmycin 500 MG in 0.9 % Sodium Chloride 100 ML IVPB SCH (14:28)
[2020-05-29] MEDS: cefTRIAXone 2,000 MG in Water for inj. (sterile) 20 ML IVP SCH (17:16)
[2020-05-30] MEDS: Ondansetron 4 MG/2 ML VIAL IVP PRN (04:53)
[2020-05-30 04:55] LABS: Basophils # 0.1 K/mcL (0.0-0.2); Basophils % 0.7 %; Eosinophils # 0.3 K/mcL (0.0-0.6); Eosinophils % 3.3 %; Hematocrit 29.2 % (35.3-44.9); Hemoglobin 8.7 g/dL (11.5-15.4); Immature Granulocytes % 0.3 % (0-4); Lymphocytes # 1.8 K/mcL (0.6-4.6); Lymphocytes % 20.7 %; Mean Corpuscular HGB Conc 29.8 g/dL (31.6-35.5); Mean Corpuscular Hemoglobin 25.7 pg (28.0-33.3); Mean Corpuscular Volume 86.1 fL (83.0-100.0); Mean Platelet Volume 8.8 fL (9.4-12.4); Monocytes # 0.7 K/mcL (0.0-1.3); Monocytes % 7.9 %; Neutrophils # 5.9 K/mcL (1.6-8.9); Platelet Count 241 K/mcL (140-400); Red Blood Count 3.39 M/mcL (3.82-4.97); Segmented Neutrophils % 67.1 %; White Blood Count 8.8 K/mcL (4.3-11.1)
[2020-05-30 05:02] LABS: Calcium 8.5 mg/dL (8.6-10.3); Potassium 3.9 mEq/L (3.5-5.1)
[2020-05-30] MEDS: Aspirin Enteric Coated 81 MG Tablet PO SCH (09:05)
[2020-05-30] MEDS: Sennosides/Docusate Sodium TABLET PO SCH (09:05)
[2020-05-30] MEDS: carvediloL 6.25 MG TABLET PO SCH (09:05)
[2020-05-30] MEDS: amLODIPine 5 MG TABLET PO SCH (09:05)
[2020-05-30] MEDS: Cholecalciferol (D-3) 1,000 UNIT (25MCG) TABLET PO SCH (09:05)
[2020-05-30] MEDS: Insulin LISPRO 300 UNITS/3 ML VIAL SQ SCH ×4 (09:06→12:38)
[2020-05-30] MEDS: Insulin DETEMIR 100 UNIT/ML X5UNITS SQ SCH (09:07)
[2020-05-30 15:25] VITALS: BP 176/74
[2020-05-30] MEDS: cefTRIAXone 2,000 MG in Water for inj. (sterile) 20 ML IVP SCH (15:42)
[2020-05-31] MEDS ORDERED: DAPTOmycin 500 MG in 0.9 % Sodium Chloride 100 ML IVPB SCH (14:00)
== END 2020-05-30 16:35 | disposition home health service (06) | DRG 239 ==
LOC: 3NENU 10:52 → EMEROOARM 10:52 → SUATTDRO 16:01 → 3NENU 18:32
PROVIDERS: ADMIT Family Medicine; ATTEND Family Medicine

== ENCOUNTER 2021-11-21 19:08 | Inpatient (IN) ==
[2021-11-21 20:25] LABS: Basophils % 0.2 %; Eosinophils % 0.2 %; Hematocrit 30.9 % (35.3-44.9); Hemoglobin 9.9 g/dL (11.5-15.4); Immature Granulocytes % 0.6 % (0-4); Lymphocytes # 1.9 K/mcL (0.6-4.6); Lymphocytes % 10.9 %; Mean Corpuscular Volume 74.8 fL (83.0-100.0); Mean Platelet Volume 9.7 fL (9.4-12.4); Monocytes # 0.7 K/mcL (0.0-1.3); Monocytes % 4.3 %; Neutrophils # 14.5 K/mcL (1.6-8.9); Platelet Count 568 K/mcL (140-400); Red Blood Count 4.13 M/mcL (3.82-4.97); Red Cell Distribution Width 18.6 % (11.5-14.5); Segmented Neutrophils % 83.8 %; White Blood Count 17.3 K/mcL (4.3-11.1)
[2021-11-21] MEDS ORDERED: 0.9 % Sodium Chloride 1,000 ML IVC ONE (20:44)
[2021-11-21] MEDS ORDERED: 0.9 % Sodium Chloride 1,000 ML ONE (20:47)
[2021-11-21 20:59] LABS: Troponin I 0.04 ng/mL (< 0.04)
[2021-11-21 21:08] LABS: Bacteria,Urine Few per hpf (None-Few); Bilirubin,Urine Negative (Negative); Blood,Urine Negative (Negative); Clarity,Urine Clear (Clear); Color,Urine Light-Yellow (Yellow); Glucose,Urine (UA) Normal (Normal); Hyaline Casts,Urine Few per lpf (None Seen); Ketones,Urine Negative (Negative); Leukocyte Esterase,Urine Small (Negative); Mucus,Urine Few per lpf (None-Few); Nitrite,Urine Negative (Negative); PH,Urine 5.5 pH Units (5.0-8.0); Protein,Urine Trace mg/dL (Neg-Trace); RBC,Urine 0-3 per hpf (0-3); Specific Gravity,Urine 1.012 (1.010-1.025); Squamous Epithelial Cell,Urine Few per hpf (None-Few); Urobilinogen,Urine Normal (Normal)
[2021-11-21 21:27] LABS: Influenza A PCR Negative (Negative); Influenza B PCR Negative (Negative); Resp. Syncytial Virus PCR Negative (Negative)
[2021-11-21 21:52] LABS: SARS-CoV-2 by PCR (In House) Positive (Negative)
[2021-11-21 23:02] LABS: Albumin 3.2 g/dL (3.5-5.7); Albumin/Globulin Ratio 0.8 (1.1-2.2); Bilirubin,Total 0.2 mg/dL (0.3-1.0); Calcium 9.3 mg/dL (8.6-10.3); Globulin 3.9 g/dL (2.4-3.5); Potassium 2.6 mEq/L (3.5-5.1); Total Protein 7.1 g/dL (6.4-8.9)
[2021-11-21] MEDS ORDERED: cefTRIAXone 1,000 MG in Water for inj. (sterile) 10 ML IVP ONE (23:09)
[2021-11-21] MEDS ORDERED: Magnesium Sulfate 1 GM/102 ML PIGGYBACK IVPB ONE (23:12)
[2021-11-22] MEDS ORDERED: Ondansetron 4 MG/2 ML VIAL IVP PRN (00:51)
[2021-11-22] MEDS ORDERED: Naloxone 0.4 MG/ML INJ IVP PRN (00:51)
[2021-11-22] MEDS ORDERED: Dextrose Gel 15 GM/37.5 ML TUBE PO PRN ×2 (01:44)
[2021-11-22] MEDS ORDERED: D5% in Water 1,000 ML IVC PRN (01:44)
[2021-11-22 04:31] LABS: Basophils % 0.3 %; Eosinophils % 0.3 %; Hematocrit 28.6 % (35.3-44.9); Immature Granulocytes % 0.7 % (0-4); Lymphocytes # 1.1 K/mcL (0.6-4.6); Lymphocytes % 9.2 %; Mean Corpuscular HGB Conc 31.5 g/dL (31.6-35.5); Mean Corpuscular Hemoglobin 23.4 pg (28.0-33.3); Mean Corpuscular Volume 74.3 fL (83.0-100.0); Mean Platelet Volume 9.5 fL (9.4-12.4); Monocytes # 0.6 K/mcL (0.0-1.3); Nucleated Red Blood Cells 0.3 /100 WBC (0); Platelet Count 449 K/mcL (140-400); Red Blood Count 3.85 M/mcL (3.82-4.97); Red Cell Distribution Width 18.4 % (11.5-14.5); Segmented Neutrophils % 84.5 %; White Blood Count 11.8 K/mcL (4.3-11.1)
[2021-11-22 04:43] LABS: INR 1.4; Prothrombin Time 16.1 Seconds (9.4-12.1)
[2021-11-22 04:45] LABS: Albumin 2.9 g/dL (3.5-5.7); Albumin/Globulin Ratio 0.8 (1.1-2.2); Bilirubin,Indirect 0.2 mg/dL (0.0-1.0); Bilirubin,Total 0.2 mg/dL (0.3-1.0); Calcium 8.5 mg/dL (8.6-10.3); Globulin 3.6 g/dL (2.4-3.5); Magnesium 2.2 mg/dL (1.6-2.6); Phosphorous 7.5 mg/dL (2.7-4.5); Total Protein 6.5 g/dL (6.4-8.9)
[2021-11-22 04:54] LABS: Thyroid Stimulating Hormone 1.112 mcIU/mL (0.340-5.600)
[2021-11-22] MEDS: *HR* Heparin 5,000 UNIT/ML VIAL SQ SCH ×2 (05:25→12:50)
[2021-11-22] MEDS: *HR* Dextrose 50 % in Water (Syg) 50 ML SYRINGE IVP PRN (07:33)
[2021-11-22] MEDS: Insulin LISPRO 300 UNITS/3 ML VIAL SUBQ SCH ×4 (07:42→21:13)
[2021-11-22 08:59] LABS: Uric Acid 19.4 mg/dL (2.3-7.6)
[2021-11-22] MEDS: Sodium Bicarbonate 150 MEQ in 0.45 % Sodium Chloride 1,000 ML IVC SCH (09:18)
[2021-11-22] MEDS: amLODIPine 5 MG TABLET PO SCH (09:18)
[2021-11-22] MEDS: Magnesium Oxide 400 MG TABLET PO SCH (09:18)
[2021-11-22] MEDS: carvediloL 6.25 MG TABLET PO SCH ×2 (09:18→16:39)
[2021-11-22] MEDS: Aspirin Enteric Coated 81 MG Tablet PO SCH (09:19)
[2021-11-22 10:02] LABS: Hepatitis B Surface Antigen Nonreactive (Nonreactive)
[2021-11-22 10:30] LABS: Hepatitis C Virus Antibody Nonreactive (Nonreactive)
[2021-11-22 10:31] LABS: Hepatitis B Core IgM Nonreactive (Nonreactive)
[2021-11-22 10:32] LABS: Hepatitis A Antibody IgM Nonreactive (Nonreactive)
[2021-11-22] MEDS ORDERED: levoFLOXacin 750 MG/150 ML 750 MG/150 ML BAG IVPB ONE (12:00)
[2021-11-22] MEDS: Acetaminophen 325 MG TABLET PO PRN (12:50)
[2021-11-22] MEDS ORDERED: *HR* HYDROcodone/Acet 5/325 mg TABLET PO PRN (15:43)
[2021-11-22 16:29] LABS: Sodium, Urine 42.3 mEq/L; Sodium, Urine 42.8 mEq/L
[2021-11-22 17:08] LABS: Protein/Creatinine Ratio,Urine 0.41 mg/mg (0.00-0.20)
[2021-11-22] MEDS ORDERED: Prochlorperazine 10 MG/2 ML VIAL IVP PRN (20:54)
[2021-11-22] MEDS ORDERED: Insulin DETEMIR 100 UNIT/ML X5UNITS SUBQ SCH ×2 (21:00)
[2021-11-23] MEDS: *HR* Heparin 5,000 UNIT/ML VIAL SQ SCH ×2 (00:42→06:35)
[2021-11-23] MEDS: Sodium Bicarbonate 150 MEQ in 0.45 % Sodium Chloride 1,000 ML IVC SCH ×3 (03:40→17:09)
[2021-11-23 04:31] LABS: Basophils % 0.1 %; Eosinophils % 0.5 %; Hematocrit 24.7 % (35.3-44.9); Hemoglobin 7.7 g/dL (11.5-15.4); Immature Granulocytes % 0.8 % (0-4); Lymphocytes # 0.9 K/mcL (0.6-4.6); Lymphocytes % 11.5 %; Mean Corpuscular HGB Conc 31.2 g/dL (31.6-35.5); Mean Corpuscular Hemoglobin 23.1 pg (28.0-33.3); Mean Platelet Volume 9.5 fL (9.4-12.4); Monocytes # 0.4 K/mcL (0.0-1.3); Monocytes % 5.6 %; Neutrophils # 6.1 K/mcL (1.6-8.9); Platelet Count 346 K/mcL (140-400); Red Blood Count 3.34 M/mcL (3.82-4.97); Red Cell Distribution Width 18.3 % (11.5-14.5); Segmented Neutrophils % 81.5 %; White Blood Count 7.5 K/mcL (4.3-11.1)
[2021-11-23 04:50] LABS: Calcium 8.1 mg/dL (8.6-10.3); Magnesium 2.1 mg/dL (1.6-2.6); Phosphorous 5.1 mg/dL (2.7-4.5); Potassium 2.7 mEq/L (3.5-5.1)
[2021-11-23] MEDS: Insulin LISPRO 300 UNITS/3 ML VIAL SUBQ SCH ×4 (08:19→22:34)
[2021-11-23] MEDS: *HR* Dextrose 50 % in Water (Syg) 50 ML SYRINGE IVP PRN (08:30)
[2021-11-23] MEDS: Aspirin Enteric Coated 81 MG Tablet PO SCH (08:32)
[2021-11-23] MEDS: Magnesium Oxide 400 MG TABLET PO SCH (08:32)
[2021-11-23] MEDS: amLODIPine 5 MG TABLET PO SCH (08:32)
[2021-11-23] MEDS ORDERED: carvediloL 6.25 MG TABLET PO SCH (08:33)
[2021-11-23] MEDS: carvediloL 6.25 MG TABLET PO SCH (08:34)
[2021-11-23 09:45] LABS: ABG Base Excess -2 mEq/L (-2 to 3); ABG HCO3 21 mEq/L (21-27); ABG Oxygen Saturation 97 % (95-98); ABG PCO2 31 mmHg (35-45); ABG PH 7.44 pH Units (7.32-7.45); ABG PO2 81 mmHg (85-104); ABG TCO2 22 mEq/L (20-26)
[2021-11-23] MEDS: Potassium Chloride Elixir 20 MEQ/15 ML UDC PO SCH ×3 (13:47→22:33)
[2021-11-23] MEDS: Acetaminophen 325 MG TABLET PO PRN (13:50)
[2021-11-23] MEDS ORDERED: Acetaminophen 325 MG TABLET PO PRN (14:15)
[2021-11-24 01:11] LABS: Hematocrit 22.1 % (35.3-44.9); Hemoglobin 7.2 g/dL (11.5-15.4)
[2021-11-24 01:29] LABS: Iron 19 mcg/dL (50-170)
[2021-11-24 01:30] LABS: Calcium 7.9 mg/dL (8.6-10.3); Magnesium 2.7 mg/dL (1.6-2.6); Phosphorous 3.3 mg/dL (2.7-4.5); Potassium 3.5 mEq/L (3.5-5.1)
[2021-11-24 03:45] LABS: % Iron Saturation 10 % (15-50); Transferrin 139 mg/dL (203-362)
[2021-11-24] MEDS: amLODIPine 5 MG TABLET PO SCH (09:30)
[2021-11-24] MEDS: Magnesium Oxide 400 MG TABLET PO SCH (09:31)
[2021-11-24] MEDS: Insulin LISPRO 300 UNITS/3 ML VIAL SUBQ SCH ×4 (09:31→20:47)
[2021-11-24] MEDS: Aspirin Enteric Coated 81 MG Tablet PO SCH (09:31)
[2021-11-24] MEDS: Sodium Bicarbonate 150 MEQ in 0.45 % Sodium Chloride 1,000 ML IVC SCH (09:33)
[2021-11-24] MEDS ORDERED: levoFLOXacin 500 MG/100 ML 500 MG/100 ML BAG IVPB SCH (12:00)
[2021-11-24 13:48] LABS: Hemoglobin 8.1 g/dL (11.5-15.4)
[2021-11-24] MEDS: 0.9 % Sodium Chloride 1,000 ML IVC SCH (14:27)
[2021-11-24 20:53] LABS: Hematocrit 23.6 % (35.3-44.9); Hemoglobin 7.1 g/dL (11.5-15.4)
[2021-11-25] MEDS: 0.9 % Sodium Chloride 1,000 ML IVC SCH (03:32)
[2021-11-25 04:10] LABS: Calcium 7.6 mg/dL (8.6-10.3); Magnesium 2.1 mg/dL (1.6-2.6); Phosphorous 2.9 mg/dL (2.7-4.5); Potassium 3.6 mEq/L (3.5-5.1)
[2021-11-25] MEDS: Insulin LISPRO 300 UNITS/3 ML VIAL SUBQ SCH ×2 (09:00→11:45)
[2021-11-25] MEDS: Magnesium Oxide 400 MG TABLET PO SCH (09:01)
[2021-11-25] MEDS: amLODIPine 5 MG TABLET PO SCH (09:01)
[2021-11-25] MEDS: Aspirin Enteric Coated 81 MG Tablet PO SCH (09:01)
[2021-11-25 11:34] VITALS: BP 109/51; PULSE 76; TEMP 98; O2SAT 96
== END 2021-11-25 14:50 | disposition home or self-care (01) | DRG 178 ==
LOC: 2ANU 19:08 → EMEROOARM 19:08 → OBSVTOIN 11-22 00:02 → SUATTDRO 11-22 00:51 → 2ANU 11-22 01:01
PROVIDERS: ADMIT Internal Medicine; ATTEND Internal Medicine

== ENCOUNTER 2022-01-30 15:48 | Inpatient (IN) ==
[2022-01-30] MEDS ORDERED: Isovue-370 500 ML BOTTLE IVP ONE (16:11)
[2022-01-30] MEDS ORDERED: Morphine Sulfate 2 MG/ML SYRINGE IVP ONE (16:13)
[2022-01-30] MEDS ORDERED: Clindamycin 600 MG/50 ML 600 MG/50 ML IV.SOLN IVPB STA (16:16)
[2022-01-30] MEDS ORDERED: Cefepime HCl 2,000 MG in 0.9 % Sodium Chloride 10 ML IVP ONE (16:17)
[2022-01-30 16:54] LABS: Basophils % 0.1 %; Eosinophils % 0.2 %; Hematocrit 25.1 % (35.3-44.9); Immature Granulocytes % 0.7 % (0-4); Lymphocytes # 0.7 K/mcL (0.6-4.6); Lymphocytes % 8.4 %; Mean Corpuscular HGB Conc 31.9 g/dL (31.6-35.5); Mean Corpuscular Hemoglobin 23.5 pg (28.0-33.3); Mean Corpuscular Volume 73.6 fL (83.0-100.0); Mean Platelet Volume 9.2 fL (9.4-12.4); Monocytes # 0.3 K/mcL (0.0-1.3); Platelet Count 282 K/mcL (140-400); Red Blood Count 3.41 M/mcL (3.82-4.97); Red Cell Distribution Width 17.5 % (11.5-14.5); Segmented Neutrophils % 86.6 %; White Blood Count 8.1 K/mcL (4.3-11.1)
[2022-01-30 16:55] LABS: VBG HCO3 13 mEq/L (21-27); VBG PCO2 23 mmHg (41-51); VBG PH 7.36 pH Units (7.32-7.42); VBG PO2 39 mmHg (25-50)
[2022-01-30 17:01] LABS: INR 1.7; Prothrombin Time 18.7 Seconds (9.4-12.1)
[2022-01-30] MEDS ORDERED: 0.9 % Sodium Chloride 1,000 ML IVC SCH (17:15)
[2022-01-30 17:18] LABS: Albumin 2.1 g/dL (3.5-5.7); Albumin/Globulin Ratio 0.6 (1.1-2.2); Bilirubin,Indirect 0.2 mg/dL (0.0-1.0); Bilirubin,Total 0.2 mg/dL (0.3-1.0); Globulin 3.7 g/dL (2.4-3.5); Magnesium 1.3 mg/dL (1.6-2.6); Potassium 2.7 mEq/L (3.5-5.1); Total Protein 5.8 g/dL (6.4-8.9)
[2022-01-30] MEDS ORDERED: Ondansetron 4 MG/2 ML VIAL IVP STA (17:52)
[2022-01-30] MEDS ORDERED: 0.9 % Sodium Chloride 500 ML IVC ONE (19:34)
[2022-01-30] MEDS ORDERED: Albumin 25% 25gram/100mL 25 GM/100 ML IV.SOLN IVPB ONE (19:39)
[2022-01-30] MEDS ORDERED: Naloxone 0.4 MG/ML INJ IVP PRN (19:50)
[2022-01-30] MEDS ORDERED: Melatonin 3 MG TABLET PO PRN (19:50)
[2022-01-30] MEDS ORDERED: *HR* Dextrose 50 % in Water (Syg) 50 ML SYRINGE IVP PRN (19:57)
[2022-01-30] MEDS ORDERED: Dextrose 4 GM Chewable Tablets PO PRN ×2 (19:57)
[2022-01-30] MEDS ORDERED: D5% in Water 1,000 ML IVC PRN (19:57)
[2022-01-30] MEDS ORDERED: 0.9 % Sodium Chloride 1,000 ML IVC ONE (20:27)
[2022-01-30] MEDS: Calcium Gluconate 1gm/50mL 1 GM/50 ML BAG IVPB SCH ×2 (21:53→22:24)
[2022-01-30] MEDS: Insulin LISPRO 300 UNITS/3 ML VIAL SUBQ SCH (22:25)
[2022-01-30] MEDS: Acetaminophen 325 MG TABLET PO PRN (23:43)
[2022-01-31 00:34] LABS: Albumin 2.7 g/dL (3.5-5.7); Calcium 5.6 mg/dL (8.6-10.3); Magnesium 1.8 mg/dL (1.6-2.6); Phosphorous 5.3 mg/dL (2.7-4.5); Potassium 2.7 mEq/L (3.5-5.1)
[2022-01-31] MEDS ORDERED: Potassium Chloride Elixir 20 MEQ/15 ML UDC PO ONE (00:58)
[2022-01-31] MEDS: Calcium Gluconate 1gm/50mL 1 GM/50 ML BAG IVPB PRN ×2 (01:12→02:05)
[2022-01-31 01:33] LABS: Albumin/Globulin Ratio 0.8 (1.1-2.2); Bilirubin,Total 0.2 mg/dL (0.3-1.0); Globulin 3.3 g/dL (2.4-3.5)
[2022-01-31 01:54] LABS: Basophils % 0.3 %; Eosinophils % 0.1 %; Hematocrit 22.1 % (35.3-44.9); Hemoglobin 6.9 g/dL (11.5-15.4); Lymphocytes # 0.7 K/mcL (0.6-4.6); Lymphocytes % 8.1 %; Mean Corpuscular HGB Conc 31.2 g/dL (31.6-35.5); Mean Corpuscular Hemoglobin 23.3 pg (28.0-33.3); Mean Corpuscular Volume 74.7 fL (83.0-100.0); Monocytes # 0.4 K/mcL (0.0-1.3); Monocytes % 4.5 %; Neutrophils # 6.9 K/mcL (1.6-8.9); Platelet Count 232 K/mcL (140-400); Red Blood Count 2.96 M/mcL (3.82-4.97); Red Cell Distribution Width 17.3 % (11.5-14.5)
[2022-01-31 03:00] LABS: Folate 14.6 ng/mL (3.0-16.0)
[2022-01-31] MEDS ORDERED: Ondansetron ODT 4 MG TAB.RAPDIS SL PRN (03:10)
[2022-01-31 03:12] LABS: Bacteria,Urine Few per hpf (None-Few); Bilirubin,Urine Negative (Negative); Blood,Urine Trace (Negative); Clarity,Urine Clear (Clear); Color,Urine Light-Yellow (Yellow); Glucose,Urine (UA) 100 mg/dL (Normal); Ketones,Urine Negative (Negative); Leukocyte Esterase,Urine Large (Negative); Mucus,Urine Few per lpf (None-Few); Nitrite,Urine Negative (Negative); Protein,Urine 30 mg/dL (Neg-Trace); Specific Gravity,Urine 1.016 (1.010-1.025); Squamous Epithelial Cell,Urine Few per hpf (None-Few); Transitional Epi Cells,Urine Few per hpf (None-Few); Urobilinogen,Urine Normal (Normal); WBC,Urine 15-30 per hpf (0-3)
[2022-01-31] MEDS: Clindamycin 600 MG/50 ML 600 MG/50 ML IV.SOLN IVPB SCH ×3 (03:25→19:38)
[2022-01-31] MEDS: Ondansetron 4 MG/2 ML VIAL IVP PRN ×3 (04:25→14:35)
[2022-01-31] MEDS ORDERED: 0.9 % Sodium Chloride 250 ML ONE (04:33)
[2022-01-31] MEDS ORDERED: Prochlorperazine 10 MG/2 ML VIAL IVP ONE (04:53)
[2022-01-31 05:27] LABS: VBG Ionized Calcium 0.72 mmol/L (1.15-1.35)
[2022-01-31 05:44] LABS: Albumin 2.6 g/dL (3.5-5.7); Albumin/Globulin Ratio 0.8 (1.1-2.2); Bilirubin,Total 0.2 mg/dL (0.3-1.0); Calcium 6.4 mg/dL (8.6-10.3); Globulin 3.1 g/dL (2.4-3.5); Magnesium 1.8 mg/dL (1.6-2.6); Phosphorous 4.1 mg/dL (2.7-4.5); Potassium 2.9 mEq/L (3.5-5.1); Total Protein 5.7 g/dL (6.4-8.9)
[2022-01-31] MEDS ORDERED: Albumin 25% 25gram/100mL 25 GM/100 ML IV.SOLN IVPB ONE (05:55)
[2022-01-31] MEDS ORDERED: Cefepime HCl 1,000 MG in 0.9 % Sodium Chloride 10 ML IVP SCH (06:00)
[2022-01-31] MEDS: Calcium Gluconate 1gm/50mL 1 GM/50 ML BAG IVPB SCH ×2 (06:42→08:13)
[2022-01-31] MEDS: Insulin LISPRO 300 UNITS/3 ML VIAL SUBQ SCH ×4 (08:00→19:46)
[2022-01-31 10:30] LABS: Basophils % 0.1 %; Hematocrit 26.4 % (35.3-44.9); Hemoglobin 8.4 g/dL (11.5-15.4); Immature Granulocytes % 0.6 % (0-4); Lymphocytes # 0.4 K/mcL (0.6-4.6); Lymphocytes % 2.6 %; Mean Corpuscular HGB Conc 31.8 g/dL (31.6-35.5); Mean Corpuscular Hemoglobin 24.3 pg (28.0-33.3); Mean Corpuscular Volume 76.5 fL (83.0-100.0); Mean Platelet Volume 9.4 fL (9.4-12.4); Monocytes # 0.2 K/mcL (0.0-1.3); Monocytes % 1.6 %; Neutrophils # 13.2 K/mcL (1.6-8.9); Platelet Count 198 K/mcL (140-400); Red Blood Count 3.45 M/mcL (3.82-4.97); Red Cell Distribution Width 17.8 % (11.5-14.5); Segmented Neutrophils % 95.1 %
[2022-01-31 10:31] LABS: White Blood Count 13.9 K/mcL (4.3-11.1)
[2022-01-31 10:34] LABS: Protein/Creatinine Ratio,Urine 0.91 mg/mg (0.00-0.20); Sodium, Urine 63.8 mEq/L
[2022-01-31 13:30] LABS: Calcium 6.6 mg/dL (8.6-10.3); Potassium 3.3 mEq/L (3.5-5.1)
[2022-01-31] MEDS: Ergocalciferol (VIT D2) 50,000 UNIT (1.25MG) CAP PO SCH (14:35)
[2022-01-31] MEDS: Sodium Bicarbonate 75 MEQ in 0.45 % Sodium Chloride 1,000 ML IVC SCH (14:36)
[2022-01-31] MEDS ORDERED: Vancomycin 500 MG in 0.9 % Sodium Chloride 250 ML IVPB ONE (17:00)
[2022-02-01] MEDS: Clindamycin 600 MG/50 ML 600 MG/50 ML IV.SOLN IVPB SCH ×3 (04:09→20:50)
[2022-02-01] MEDS: Cefepime HCl 1,000 MG in 0.9 % Sodium Chloride 10 ML IVP SCH (05:13)
[2022-02-01 05:50] LABS: Basophils % 0.3 %; Eosinophils # 0.1 K/mcL (0.0-0.6); Eosinophils % 0.8 %; Hematocrit 31.2 % (35.3-44.9); Immature Granulocytes % 1.1 % (0-4); Lymphocytes # 0.8 K/mcL (0.6-4.6); Lymphocytes % 10.4 %; Mean Corpuscular HGB Conc 32.1 g/dL (31.6-35.5); Mean Corpuscular Hemoglobin 24.4 pg (28.0-33.3); Mean Corpuscular Volume 76.3 fL (83.0-100.0); Mean Platelet Volume 9.2 fL (9.4-12.4); Monocytes # 0.2 K/mcL (0.0-1.3); Monocytes % 2.2 %; Neutrophils # 6.3 K/mcL (1.6-8.9); Platelet Count 215 K/mcL (140-400); Red Blood Count 4.09 M/mcL (3.82-4.97); Red Cell Distribution Width 17.5 % (11.5-14.5); Segmented Neutrophils % 85.2 %; White Blood Count 7.3 K/mcL (4.3-11.1)
[2022-02-01 06:19] LABS: Albumin 2.6 g/dL (3.5-5.7); Albumin/Globulin Ratio 0.8 (1.1-2.2); Bilirubin,Total 0.3 mg/dL (0.3-1.0); Calcium 6.5 mg/dL (8.6-10.3); Globulin 3.3 g/dL (2.4-3.5); Magnesium 1.8 mg/dL (1.6-2.6); Phosphorous 4.1 mg/dL (2.7-4.5); Potassium 2.5 mEq/L (3.5-5.1); Total Protein 5.9 g/dL (6.4-8.9); Uric Acid 13.5 mg/dL (2.3-7.6)
[2022-02-01] MEDS ORDERED: Potassium Chloride Elixir 20 MEQ/15 ML UDC PO ONE (06:22)
[2022-02-01 06:29] LABS: Thyroid Stimulating Hormone 1.49 mcIU/mL (0.340-5.600)
[2022-02-01] MEDS ORDERED: Vancomycin 500 MG in 0.9 % Sodium Chloride Mini Bag 100 ML IVPB ONE (08:00)
[2022-02-01] MEDS: Insulin LISPRO 300 UNITS/3 ML VIAL SUBQ SCH ×4 (08:49→20:53)
[2022-02-01] MEDS: Sodium Bicarbonate 75 MEQ in 0.45 % Sodium Chloride 1,000 ML IVC SCH (12:56)
[2022-02-01 13:51] LABS: Calcium 6.3 mg/dL (8.6-10.3)
[2022-02-01] MEDS: calcitrioL 0.25 MCG CAPSULE PO SCH (14:42)
[2022-02-01] MEDS: Aspirin Enteric Coated 81 MG Tablet PO SCH (14:42)
[2022-02-01] MEDS: Potassium Chloride Elixir 20 MEQ/15 ML UDC PO SCH ×2 (14:42→20:50)
[2022-02-02] MEDS: Potassium Chloride Elixir 20 MEQ/15 ML UDC PO SCH ×2 (04:24→13:16)
[2022-02-02] MEDS: Clindamycin 600 MG/50 ML 600 MG/50 ML IV.SOLN IVPB SCH ×3 (04:24→19:54)
[2022-02-02] MEDS: Cefepime HCl 1,000 MG in 0.9 % Sodium Chloride 10 ML IVP SCH ×2 (05:17→16:59)
[2022-02-02 06:29] LABS: Basophils % 0.2 %; Eosinophils # 0.1 K/mcL (0.0-0.6); Eosinophils % 0.5 %; Hematocrit 28.5 % (35.3-44.9); Immature Granulocytes % 0.8 % (0-4); Lymphocytes # 0.7 K/mcL (0.6-4.6); Lymphocytes % 5.9 %; Mean Corpuscular HGB Conc 31.6 g/dL (31.6-35.5); Mean Corpuscular Hemoglobin 24.1 pg (28.0-33.3); Mean Corpuscular Volume 76.4 fL (83.0-100.0); Mean Platelet Volume 9.7 fL (9.4-12.4); Monocytes # 0.4 K/mcL (0.0-1.3); Monocytes % 2.9 %; Platelet Count 193 K/mcL (140-400); Red Blood Count 3.73 M/mcL (3.82-4.97); Red Cell Distribution Width 18.1 % (11.5-14.5); Segmented Neutrophils % 89.7 %
[2022-02-02 06:34] LABS: Neutrophils # 10.9 K/mcL (1.6-8.9); White Blood Count 12.1 K/mcL (4.3-11.1)
[2022-02-02 07:32] LABS: Albumin 2.5 g/dL (3.5-5.7); Albumin/Globulin Ratio 0.7 (1.1-2.2); Bilirubin,Total 0.3 mg/dL (0.3-1.0); Calcium 6.4 mg/dL (8.6-10.3); Globulin 3.7 g/dL (2.4-3.5); Potassium 3.8 mEq/L (3.5-5.1); Total Protein 6.2 g/dL (6.4-8.9)
[2022-02-02] MEDS: Aspirin Enteric Coated 81 MG Tablet PO SCH (07:35)
[2022-02-02] MEDS: calcitrioL 0.25 MCG CAPSULE PO SCH (07:35)
[2022-02-02] MEDS: Insulin LISPRO 300 UNITS/3 ML VIAL SUBQ SCH ×4 (07:35→19:56)
[2022-02-02] MEDS: *HR* Heparin 5,000 UNIT/ML VIAL SQ SCH (16:59)
[2022-02-03 03:22] LABS: Basophils % 0.2 %; Eosinophils # 0.2 K/mcL (0.0-0.6); Eosinophils % 1.6 %; Hematocrit 25.6 % (35.3-44.9); Hemoglobin 8.3 g/dL (11.5-15.4); Immature Granulocytes % 0.7 % (0-4); Lymphocytes # 1.1 K/mcL (0.6-4.6); Lymphocytes % 9.2 %; Mean Corpuscular HGB Conc 32.4 g/dL (31.6-35.5); Mean Corpuscular Hemoglobin 24.2 pg (28.0-33.3); Mean Corpuscular Volume 74.6 fL (83.0-100.0); Monocytes # 0.5 K/mcL (0.0-1.3); Monocytes % 4.2 %; Neutrophils # 10.3 K/mcL (1.6-8.9); Platelet Count 154 K/mcL (140-400); Red Blood Count 3.43 M/mcL (3.82-4.97); Segmented Neutrophils % 84.1 %; White Blood Count 12.3 K/mcL (4.3-11.1)
[2022-02-03] MEDS: Clindamycin 600 MG/50 ML 600 MG/50 ML IV.SOLN IVPB SCH (03:37)
[2022-02-03 04:01] LABS: Albumin 2.2 g/dL (3.5-5.7); Albumin/Globulin Ratio 0.7 (1.1-2.2); Bilirubin,Total 0.3 mg/dL (0.3-1.0); Calcium 6.6 mg/dL (8.6-10.3); Potassium 2.7 mEq/L (3.5-5.1); Total Protein 5.2 g/dL (6.4-8.9)
[2022-02-03] MEDS: Cefepime HCl 1,000 MG in 0.9 % Sodium Chloride 10 ML IVP SCH (05:22)
[2022-02-03] MEDS: *HR* Heparin 5,000 UNIT/ML VIAL SQ SCH ×2 (05:23→17:28)
[2022-02-03] MEDS: Insulin LISPRO 300 UNITS/3 ML VIAL SUBQ SCH ×4 (07:29→22:16)
[2022-02-03] MEDS: calcitrioL 0.25 MCG CAPSULE PO SCH (07:33)
[2022-02-03] MEDS: Aspirin Enteric Coated 81 MG Tablet PO SCH (07:33)
[2022-02-03] MEDS: Potassium Chloride Elixir 20 MEQ/15 ML UDC PO SCH ×2 (09:59→17:55)
[2022-02-03] MEDS ORDERED: Tigecycline 100 MG in 0.9 % Sodium Chloride 100 ML IVPB ONE (12:48)
[2022-02-03] MEDS: Calcium Gluconate 1gm/50mL 1 GM/50 ML BAG IVPB SCH ×3 (17:25→19:13)
[2022-02-04] MEDS: Potassium Chloride Elixir 20 MEQ/15 ML UDC PO SCH ×3 (00:45→20:33)
[2022-02-04 05:16] LABS: Hematocrit 24.7 % (35.3-44.9); Hemoglobin 8.1 g/dL (11.5-15.4); Mean Corpuscular HGB Conc 32.8 g/dL (31.6-35.5); Mean Corpuscular Hemoglobin 24.3 pg (28.0-33.3); Mean Platelet Volume 10.3 fL (9.4-12.4); Platelet Count 162 K/mcL (140-400); Red Blood Count 3.34 M/mcL (3.82-4.97); Red Cell Distribution Width 17.8 % (11.5-14.5); White Blood Count 11.5 K/mcL (4.3-11.1)
[2022-02-04 05:21] LABS: Calcium 8.9 mg/dL (8.6-10.3); Magnesium 1.7 mg/dL (1.6-2.6); Potassium 2.9 mEq/L (3.5-5.1)
[2022-02-04 05:57] LABS: Hepatitis B Surface Antigen Nonreactive (Nonreactive)
[2022-02-04] MEDS ORDERED: Tigecycline 50 MG in 0.9 % Sodium Chloride Mini Bag 100 ML IVPB SCH (06:00)
[2022-02-04] MEDS: Tigecycline 50 MG in 0.9 % Sodium Chloride Mini Bag 100 ML IVPB SCH ×2 (06:10→17:53)
[2022-02-04] MEDS: *HR* Heparin 5,000 UNIT/ML VIAL SQ SCH ×2 (06:10→17:27)
[2022-02-04 06:26] LABS: Hepatitis C Virus Antibody Nonreactive (Nonreactive)
[2022-02-04 06:27] LABS: Hepatitis B Core IgM Nonreactive (Nonreactive)
[2022-02-04 06:28] LABS: Hepatitis A Antibody IgM Nonreactive (Nonreactive)
[2022-02-04] MEDS ORDERED: Potassium Chloride 40 MEQ in D5% in 0.9% NACL 1,000 ML IVC SCH (07:45)
[2022-02-04] MEDS: Insulin LISPRO 300 UNITS/3 ML VIAL SUBQ SCH ×4 (08:11→20:39)
[2022-02-04] MEDS: Aspirin Enteric Coated 81 MG Tablet PO SCH (08:12)
[2022-02-04] MEDS: calcitrioL 0.25 MCG CAPSULE PO SCH (08:12)
[2022-02-04] MEDS: Ondansetron 4 MG/2 ML VIAL IVP PRN ×2 (08:41→17:28)
[2022-02-05] MEDS: Tigecycline 50 MG in 0.9 % Sodium Chloride Mini Bag 100 ML IVPB SCH ×2 (05:49→18:16)
[2022-02-05] MEDS: *HR* Heparin 5,000 UNIT/ML VIAL SQ SCH ×2 (05:49→18:16)
[2022-02-05] MEDS: Potassium Chloride Elixir 20 MEQ/15 ML UDC PO SCH ×2 (05:51→13:42)
[2022-02-05 07:16] LABS: Hematocrit 27.6 % (35.3-44.9); Hemoglobin 8.5 g/dL (11.5-15.4); Mean Corpuscular HGB Conc 30.8 g/dL (31.6-35.5); Mean Corpuscular Hemoglobin 23.9 pg (28.0-33.3); Mean Corpuscular Volume 77.7 fL (83.0-100.0); Platelet Count 203 K/mcL (140-400); Red Blood Count 3.55 M/mcL (3.82-4.97); Red Cell Distribution Width 18.1 % (11.5-14.5)
[2022-02-05] MEDS: Insulin LISPRO 300 UNITS/3 ML VIAL SUBQ SCH ×4 (07:57→20:19)
[2022-02-05] MEDS: calcitrioL 0.25 MCG CAPSULE PO SCH (07:58)
[2022-02-05] MEDS: Aspirin Enteric Coated 81 MG Tablet PO SCH (07:58)
[2022-02-05 09:28] LABS: Magnesium 1.4 mg/dL (1.6-2.6); Potassium 3.7 mEq/L (3.5-5.1)
[2022-02-05] MEDS: Insulin DETEMIR 100 UNIT/ML X5UNITS SUBQ SCH (15:46)
[2022-02-05 19:41] LABS: Urine Collection Volume NOT PROVIDED mL
[2022-02-06] MEDS: Tigecycline 50 MG in 0.9 % Sodium Chloride Mini Bag 100 ML IVPB SCH ×2 (05:20→18:42)
[2022-02-06] MEDS: *HR* Heparin 5,000 UNIT/ML VIAL SQ SCH ×2 (05:20→18:42)
[2022-02-06] MEDS: Insulin LISPRO 300 UNITS/3 ML VIAL SUBQ SCH ×4 (08:28→21:06)
[2022-02-06] MEDS: Magnesium Oxide 400 MG TABLET PO SCH (08:29)
[2022-02-06] MEDS: Aspirin Enteric Coated 81 MG Tablet PO SCH (08:29)
[2022-02-06] MEDS: calcitrioL 0.25 MCG CAPSULE PO SCH (08:29)
[2022-02-06] MEDS: Insulin DETEMIR 100 UNIT/ML X5UNITS SUBQ SCH (08:33)
[2022-02-06 08:56] LABS: Basophils % 0.2 %; Eosinophils # 0.4 K/mcL (0.0-0.6); Eosinophils % 2.6 %; Hematocrit 26.3 % (35.3-44.9); Hemoglobin 8.2 g/dL (11.5-15.4); Immature Granulocytes % 1.2 % (0-4); Lymphocytes # 1.9 K/mcL (0.6-4.6); Mean Corpuscular HGB Conc 31.2 g/dL (31.6-35.5); Mean Corpuscular Hemoglobin 24.2 pg (28.0-33.3); Mean Corpuscular Volume 77.6 fL (83.0-100.0); Mean Platelet Volume 10.5 fL (9.4-12.4); Monocytes # 0.5 K/mcL (0.0-1.3); Monocytes % 3.7 %; Neutrophils # 10.7 K/mcL (1.6-8.9); Platelet Count 251 K/mcL (140-400); Red Blood Count 3.39 M/mcL (3.82-4.97); Red Cell Distribution Width 18.1 % (11.5-14.5); Segmented Neutrophils % 78.3 %; White Blood Count 13.7 K/mcL (4.3-11.1)
[2022-02-06 09:15] LABS: Calcium 8.6 mg/dL (8.6-10.3); Potassium 4.1 mEq/L (3.5-5.1)
[2022-02-06] MEDS: Acetaminophen 325 MG TABLET PO PRN ×2 (09:48→15:58)
[2022-02-06 15:55] VITALS: O2SAT 100
[2022-02-06] MEDS: Ondansetron 4 MG/2 ML VIAL IVP PRN (15:58)
[2022-02-06 17:12] LABS: Adenovirus F 40/41 PCR Not detected (Not detect); Astrovirus PCR Not detected (Not detect); C.difficile Toxin A/B Gene PCR Not detected (Not detect); Campylobacter by PCR Not detected (Not detect); Cryptosporidium by PCR Not detected (Not detect); Cyclospora cayetanensis PCR Not detected (Not detect); Entamoeba histolytica PCR Not detected (Not detect); Enteroaggregative E.coli(EAEC) Not detected (Not detect); Enteropathogenic E.coli(EPEC) Not detected (Not detect); Enterotoxigenic E.coli (ETEC) Not detected (Not detect); Giardia lamblia PCR Not detected (Not detect); Norovirus GI/GII PCR Not detected (Not detect); Plesiomonas shigelloides PCR Not detected (Not detect); Rotavirus A PCR Not detected (Not detect); Salmonella PCR Not detected (Not detect); Sapovirus PCR Not detected (Not detect); Shig/EnteroinvasiveE coli EIEC Not detected (Not detect); Shigalike tox-prod E coli STEC Not detected (Not detect); Vibrio PCR Not detected (Not detect); Vibrio cholerae PCR Not detected (Not detect); Yersinia enterocolitica PCR Not detected (Not detect)
[2022-02-07] MEDS: Acetaminophen 325 MG TABLET PO PRN (01:24)
[2022-02-07 05:15] LABS: Hematocrit 26.6 % (35.3-44.9); Hemoglobin 8.2 g/dL (11.5-15.4); Mean Corpuscular HGB Conc 30.8 g/dL (31.6-35.5); Mean Corpuscular Hemoglobin 24.3 pg (28.0-33.3); Mean Corpuscular Volume 78.9 fL (83.0-100.0); Mean Platelet Volume 10.5 fL (9.4-12.4); Platelet Count 225 K/mcL (140-400); Red Blood Count 3.37 M/mcL (3.82-4.97); White Blood Count 10.7 K/mcL (4.3-11.1)
[2022-02-07] MEDS: *HR* Heparin 5,000 UNIT/ML VIAL SQ SCH ×2 (05:24→18:00)
[2022-02-07] MEDS: Tigecycline 50 MG in 0.9 % Sodium Chloride Mini Bag 100 ML IVPB SCH ×2 (05:24→18:03)
[2022-02-07 05:31] LABS: Calcium 8.1 mg/dL (8.6-10.3); Potassium 4.4 mEq/L (3.5-5.1)
[2022-02-07] MEDS: Aspirin Enteric Coated 81 MG Tablet PO SCH (09:03)
[2022-02-07] MEDS: Insulin LISPRO 300 UNITS/3 ML VIAL SUBQ SCH ×5 (09:03→21:07)
[2022-02-07] MEDS: Magnesium Oxide 400 MG TABLET PO SCH (09:03)
[2022-02-07] MEDS: calcitrioL 0.25 MCG CAPSULE PO SCH (09:03)
[2022-02-07] MEDS: Insulin DETEMIR 100 UNIT/ML X5UNITS SUBQ SCH (09:07)
[2022-02-07] MEDS: Ergocalciferol (VIT D2) 50,000 UNIT (1.25MG) CAP PO SCH (15:48)
[2022-02-08] MEDS: *HR* Heparin 5,000 UNIT/ML VIAL SQ SCH (05:28)
[2022-02-08] MEDS: Tigecycline 50 MG in 0.9 % Sodium Chloride Mini Bag 100 ML IVPB SCH (05:29)
[2022-02-08] MEDS: Insulin LISPRO 300 UNITS/3 ML VIAL SUBQ SCH ×2 (07:55→12:22)
[2022-02-08] MEDS: Magnesium Oxide 400 MG TABLET PO SCH (08:57)
[2022-02-08] MEDS: calcitrioL 0.25 MCG CAPSULE PO SCH (08:57)
[2022-02-08] MEDS: Aspirin Enteric Coated 81 MG Tablet PO SCH (08:58)
[2022-02-08] MEDS ORDERED: Insulin DETEMIR 100 UNIT/ML X5UNITS SUBQ SCH (09:00)
[2022-02-08 11:41] VITALS: BP 168/60; PULSE 69; TEMP 97
== END 2022-02-08 14:28 | disposition home health service (06) | DRG 871 ==
LOC: 2NENU 15:48 → EMEROOARM 15:48 → 2NENU 21:00 → SUATTDRO 22:13
PROVIDERS: ADMIT Internal Medicine; ATTEND Internal Medicine